=== PATIENT | male | born 1975 | race Caucasian/White ===

== ENCOUNTER 2018-08-11 21:22 | Inpatient (IN) ==
[2018-08-11] MEDS ORDERED: LORazepam 1 MG/2 ML VIAL IV STA ×2 (22:03→22:47)
[2018-08-11] MEDS ORDERED: SODIUM CHLORIDE 0.9% 1000ML 1,000 ML IV SCH (22:15)
[2018-08-11 22:50] LABS: Appearance Urine Slightly Cloudy (Clear); Color Urine Orange; Ictotest Urine Positive (Negative); Specific Gravity Urine 1.027 (1.000-1.030)
[2018-08-11 22:58] LABS: Epithelial Cell Urine >30 /lpf (0-5)
[2018-08-11 22:59] LABS: Bacteria Urine 1+ (Negative); Mucus Urine Present (None Prsent)
[2018-08-11 22:59] LABS: INR 2.8 (0.9-1.1); Partial Thromboplastin Ratio 2.1
[2018-08-11] MEDS ORDERED: MULTI-VITAMIN INFUSION 10 ML, THIAMINE HCL 100 MG, FOLIC ACID 1 MG in SODIUM CHLORIDE 0... IV SCH (23:00)
[2018-08-11 23:02] LABS: Albumin Level 2.5 gm/dl (3.4-5.0); BUN Creatinine Ratio 5.5 (10-20); Calcium 7.8 mg/dl (8.5-10.1); Creatinine Clr Calc Pharmacy 189.9 ml/min; Est GFR (African American) 138.3; Est GFR (Non-African American) 119.3; Magnesium 1.9 mg/dl (1.8-2.4); Potassium 4.2 mmol/L (3.5-5.1)
[2018-08-11 23:04] LABS: Partial Thromboplastin Time 58.1 Seconds (21.0-31.0)
[2018-08-11 23:07] LABS: Mean Corpuscular Hgb Conc 36.2 g/dL (32-36)
[2018-08-11 23:14] LABS: Albumin Globulin Ratio 0.5 (0.9-2); Bilirubin,Total 17.2 mg/dl (0.2-1); Globulin 4.8 gm/dl (2.5-4.0); Total Protein 7.3 gm/dl (6.4-8.2); Troponin I 0.022 ng/ml (0-0.045)
[2018-08-11 23:16] LABS: Bilirubin Direct 11.3 mg/dl (0-0.2)
[2018-08-11 23:18] LABS: Platelet Count 34 K/uL (130-400)
[2018-08-11 23:19] LABS: Basophils # (auto) 0.07 K/uL (0-0.2); Basophils % (auto) 0.8 %; Eosinophils # (auto) 0.07 K/uL (0-0.5); Eosinophils % (auto) 0.8 %; Hematocrit (blood only) 38.1 % (42-52); Hemoglobin 13.8 g/dL (14.0-18.0); Immature Granulocytes # (auto) 0.02 K/uL (0.00-0.02); Immature Granulocytes % (auto) 0.2 %; Lymphocytes # (auto) 0.77 K/uL (1.2-3.4); Lymphocytes % (auto) 8.4 %; Mean Corpuscular Volume 94.3 fL (80-100); Monocytes # (auto) 1.38 K/uL (0.11-0.59); Neutrophils # (auto) 6.91 K/uL (1.4-6.5); Neutrophils % (auto) 74.8 %; RDW Coefficient of Variation 16.8 % (11.5-14.5); RDW Standard Deviation 58.2 fL (36.4-46.3); Red Blood Count 4.04 M/uL (4.7-6.1); White Blood Count 9.22 K/uL (4.8-10.8)
[2018-08-11 23:20] LABS: Platelet Estimate Decreased (Normal); Target Cells 1+; Toxic Vacuolation 1+
[2018-08-11 23:22] LABS: Amphetamines+Metham, Urine Neg (Neg); Barbiturates, Urine Neg (Neg); Benzodiazepine, Urine Neg (Neg); Cocaine, Urine Neg (Neg); MDMA (Ecstacy), Urine Neg (Neg); Methadone, Urine Neg (Neg); Opiate, Urine Neg (Neg); Phencyclidine, Urine Neg (Neg)
[2018-08-11 23:28] LABS: T4 Free Thyroxine 1.65 ng/dl (0.8-1.6)
--- NOTE | 2018-08-12 00:27 | Emergency Department Note ---
History of Present Illness General Chief complaint: GI Assessment Stated complaint: JAUNDICE, NAUSEA, DIARRHEA, WEAKNESS Time Seen by Provider: 08/11/18 21:54 History of Present Illness This is a 42-year-old male that presents to the emergency department via private vehicle accompanied by female with complaints of "jaundice, nausea, diarrhea, weakness". The patient notes that since his grandmother about 2 months ago has been consuming 1/2-3/4 of a gallon of wine daily. His last drink was at 4:30 PM. The female at bedside notes that over the past week he has been more yellow/jaundice. They also note his urine has been very dark. He has not seized but does have tremors. He notes that these are worse when he does not drink. He currently notes that he feels quite bloated. He notes no vomiting. Intermittent diarrhea is noted. Home Medications Home Medications Medication Instructions Recorded Confirmed Type No Known Home Medications 08/11/18 08/11/18 History Allergies Allergy/AdvReac Type Severity Reaction Status Date / Time amoxicillin Allergy Severe Hives Verified 08/11/18 23:25 ibuprofen Allergy Intermediate Hives Verified 08/11/18 23:25 Past Med/Surg History Medical History No pertinent past medical history Surgical History No pertinent past surgical history Social History Preferred Language: Japanese Communication Ability Comment: CURRENTLY IMPAIRED D/T WITHDRAWAL Show Girl Required: No Beliefs That Will Affect Care: None Current Living Situation: Spouse Other Information That Helps Us Care for You: No Feels Safe at Home: Yes Safety Concerns: Feels Safe At This Time Smoking Status: Current every day smoker Hx Alcohol Use: Yes Review of Systems A total of 10 systems reviewed and were otherwise negative Physical Exam Vital Signs Vital Signs - 24 hr 08/11/18 21:29 08/11/18 22:29 08/11/18 23:18 Temperature 37.3 C Temperature Source Oral Sepsis Recent Fever Within 48 Hours No Sepsis Action Taken by Nursing No Action Required Pulse Rate 115 H Pulse Rate [Apical] 109 H 108 H Pulse Rhythm Regular Pulse Rhythm [Apical] Regular Pulse Strength Normal Pulse Strength [Apical] Normal Respiratory Rate 22 21 20 Respiratory Effort / Characteristics Non-Labored Spontaneous Non-Labored Spontaneous Respiratory Depth Normal Normal Respiratory Pattern Regular Blood Pressure 184/123 H Blood Pressure [Left Arm] 165/96 H 153/111 H Blood Pressure Mean 143 Blood Pressure Mean [Left Arm] 119 125 Blood Pressure Position Sitting Blood Pressure Position [Left Arm] Pulse Oximetry 97 96 98 Oxygen Delivery Method Room Air Room Air Room Air Oxygen Flow Rate 08/12/18 01:02 08/12/18 02:32 08/12/18 04:07 Temperature 37.3 C Temperature Source Oral Sepsis Recent Fever Within 48 Hours Sepsis Action Taken by Nursing Pulse Rate Pulse Rate [Apical] 109 H 112 H 104 H Pulse Rhythm Pulse Rhythm [Apical] Regular Regular Pulse Strength Pulse Strength [Apical] Normal Normal Normal Respiratory Rate 18 22 24 Respiratory Effort / Characteristics Non-Labored Spontaneous Non-Labored Spontaneous SOB on Exertion Respiratory Depth Normal Normal Normal Respiratory Pattern Blood Pressure Blood Pressure [Left Arm] 149/85 H 138/104 H 162/85 H Blood Pressure Mean Blood Pressure Mean [Left Arm] 106 115 110 Blood Pressure Position Blood Pressure Position [Left Arm] Lying Pulse Oximetry 96 94 96 Oxygen Delivery Method Room Air Nasal Cannula Room Air Oxygen Flow Rate 2 08/12/18 05:34 08/12/18 05:42 08/12/18 06:03 Temperature 37.4 C Temperature Source Oral Sepsis Recent Fever Within 48 Hours Sepsis Action Taken by Nursing Pulse Rate 102 H Pulse Rate [Apical] 96 H 106 H Pulse Rhythm Pulse Rhythm [Apical] Pulse Strength Pulse Strength [Apical] Respiratory Rate 22 18 20 Respiratory Effort / Characteristics Grunting Labored Non-Labored Spontaneous Respiratory Depth Deep Respiratory Pattern Grunting Blood Pressure 126/78 Blood Pressure [Left Arm] 128/82 Blood Pressure Mean 94 Blood Pressure Mean [Left Arm] 97 Blood Pressure Position Lying Blood Pressure Position [Left Arm] Lying Pulse Oximetry 94 94 95 Oxygen Delivery Method Nasal Cannula Nasal Cannula Oxygen Flow Rate 2 2 2 08/12/18 06:14 08/12/18 06:18 08/12/18 06:30 Temperature 37.3 C 37.4 C 37.3 C Temperature Source Oral Oral Oral Sepsis Recent Fever Within 48 Hours Sepsis Action Taken by Nursing Pulse Rate 99 H 102 H 107 H Pulse Rate [Apical] Pulse Rhythm Pulse Rhythm [Apical] Pulse Strength Pulse Strength [Apical] Respiratory Rate 21 21 21 Respiratory Effort / Characteristics Respiratory Depth Respiratory Pattern Blood Pressure 150/72 H 122/87 122/87 Blood Pressure [Left Arm] Blood Pressure Mean 98 98 98 Blood Pressure Mean [Left Arm] Blood Pressure Position Lying Lying Blood Pressure Position [Left Arm] Pulse Oximetry 94 94 95 Oxygen Delivery Method Oxygen Flow Rate 2 2 08/12/18 06:54 Temperature 37.3 C Temperature Source Axillary Sepsis Recent Fever Within 48 Hours Sepsis Action Taken by Nursing Pulse Rate Pulse Rate [Apical] 98 H Pulse Rhythm Pulse Rhythm [Apical] Pulse Strength Pulse Strength [Apical] Respiratory Rate 20 Respiratory Effort / Characteristics Respiratory Depth Respiratory Pattern Blood Pressure Blood Pressure [Left Arm] 122/87 Blood Pressure Mean Blood Pressure Mean [Left Arm] 98 Blood Pressure Position Blood Pressure Position [Left Arm] Pulse Oximetry 93 Oxygen Delivery Method Oxygen Flow Rate 2 VITAL SIGNS - Vital signs and nursing notes were reviewed. Stable and afebrile. GENERAL - 42-year-old male appearing his stated age who is in no acute distress but has a tremor, appears anxious and is jaundiced. Communicates well with provider and answers questions appropriately. SKIN -on the anterior proximal chest there is minimal petechial-like rash appearing. HEAD - NC/AT. EYES - PERRL with EOMI bilaterally. Sclera icteric. EARS - No deformities of external structures noted on gross examination bilaterally. NOSE - Midline and without cyanosis. No epistaxis or purulent drainage noted. MOUTH/OROPHARYNX - Without perioral cyanosis. NECK - Neck with FROM. Supple to palpation. No lymphadenopathy noted. No nuchal rigidity. LUNGS - Chest wall symmetric without accessory muscle use, intercostals retractions, or central cyanosis. Normal vesicular breath sounds CTA B/L. No wheezes, rales, or rhonchi appreciated. CARDIAC - RRR with S1/S2. No murmur, rubs, or gallops appreciated. ABDOMEN - Abdominal contour slightly distended without pulsations or visible masses. BS normoactive all four quadrants. No tenderness, palpable masses, or ascites noted. EXTREMITIES - No clubbing or peripheral cyanosis. No pretibial edema present. +5/5 strength noted in UE/LE bilaterally. NEUROLOGIC - Cranial nerves II through XII grossly intact. PSYCH - A&O, and cooperates fully with examiner. Pt is very pleasant and interacts well with examiner. Course Administered Medications Lorazepam (Ativan) 1 mg in 2 mls @ 2 mls/min IV UD PRN; Protocol PRN Reason: EtOH Withdrawl AWSS Score 6,7 Stop: 09/11/18 01:06 Last Admin: 08/12/18 02:11 Dose: 2 mls/min Documented by: [id number] Lorazepam (Ativan) 2 mg in 4 mls @ 4 mls/min IV UD PRN; Protocol PRN Reason: EtOH Withdrawl AWSS Score 8,9 Stop: 09/11/18 01:06 Last Admin: 08/12/18 03:53 Dose: 4 mls/min Documented by: [id number] Lorazepam (Ativan) 3 mg in 6 mls @ 4 mls/min IV ONCE PRN; Protocol PRN Reason: EtOH Withdrawl AWSS Score >=10 Stop: 09/11/18 01:06 Last Admin: 08/12/18 06:29 Dose: 4 mls/min Documented by: [id number] Pantoprazole Sodium 40 mg/ (Dextrose) 100 mls @ 20 mls/hr IV Q5H SANDRA Stop: 09/11/18 03:14 Last Admin: 08/12/18 03:44 Dose: 20 mls/hr Documented by: [id number] Sodium Chloride (Nss 1000ml) 1,000 mls @ 40 mls/hr IV .Q24H SANDRA Stop: 09/11/18 05:14 Last Infusion: 08/12/18 05:32 Dose: 0 mls/hr Documented by: [id number] Admin: 08/12/18 05:21 Dose: 40 mls/hr Documented by: [id number] Discontinued Medications Clonidine HCl (Catapres) 0.1 mg PO NOW STA Stop: 08/12/18 01:19 Last Admin: 08/12/18 01:33 Dose: 0.1 mg Documented by: [id number] Clonidine HCl (Catapres) 0.1 mg PO NOW ONE Stop: 08/12/18 05:03 Last Admin: 08/12/18 05:17 Dose: Not Given Documented by: [id number] Gabapentin (Neurontin) 1,200 mg PO TODAY@0130 SANDRA Stop: 08/12/18 01:31 Last Admin: 08/12/18 01:32 Dose: 1,200 mg Documented by: [id number] Lorazepam (Ativan) 1 mg in 2 mls @ 2 mls/min IV NOW STA Stop: 08/11/18 22:04 Last Admin: 08/11/18 22:27 Dose: 2 mls/min Documented by: [id number] Sodium Chloride (Nss 1000ml) 1,000 mls @ 999 mls/hr IV .Q1H1M SANDRA Stop: 08/11/18 23:15 Last Infusion: 08/11/18 23:43 Dose: 0 mls/hr Documented by: [id number] Admin: 08/11/18 22:27 Dose: 999 mls/hr Documented by: [id number] Lorazepam (Ativan) 1 mg in 2 mls @ 2 mls/min IV NOW STA Stop: 08/11/18 22:48 Last Admin: 08/11/18 23:15 Dose: 2 mls/min Documented by: [id number] Multivitamins 10 ml/ Thiamine HCl 100 mg/ Folic Acid 1 mg/Sodium Chloride 1, 011.2 mls @ 1,011.2 mls/hr IV .Q1H SANDRA Stop: 08/11/18 23:59 Last Infusion: 08/12/18 00:30 Dose: 0 mls/hr Documented by: [id number] Admin: 08/11/18 23:16 Dose: 1,011.2 mls/hr Documented by: [id number] Pantoprazole Sodium 80 mg/ (Dextrose) 120 mls @ 480 mls/hr IV TODAY@0300 [facility] Stop: 08/12/18 03:14 Last Infusion: 08/12/18 03:26 Dose: 0 mls/hr Documented by: [id number] Admin: 08/12/18 03:11 Dose: 480 mls/hr Documented by: [id number] Magnesium Sulfate/Dextrose (Magnesium Sulfate / D5w) 1 gm in 100 mls @ 100 mls/hr IV ONE ONE Stop: 08/12/18 05:03 Last Infusion: 08/12/18 05:33 Dose: 0 mls/hr Documented by: [id number] Admin: 08/12/18 04:33 Dose: 100 mls/hr Documented by: [id number] Ipratropium [place] (Atrovent 0.02% 0.5mg/2.5ml) 0.5 mg INH NOW STA Stop: 08/12/18 05:30 Last Admin: 08/12/18 05:42 Dose: 0.5 mg Documented by: [id number] Levalbuterol HCl (Xopenex 1.25mg/0.5ml Neb) 1.25 mg INH NOW STA Stop: 08/12/18 05:31 Last Admin: 08/12/18 05:42 Dose: 1.25 mg Documented by: [id number] Medical Decision Making Laboratory Data Result diagrams: 08/12/18 04:05 08/12/18 04:05 Lab Results 08/11/18 08/11/18 08/11/18 Range/Units 22:00 22:00 22:20 WBC 9.22 (4.8-10.8) K/uL RBC 4.04 L (4.7-6.1) M/uL Hgb 13.8 L (14.0-18.0) g/dL Hct 38.1 L (42-52) % MCV 94.3 (80-100) fL MCH 34.2 H (25-34) pg MCHC 36.2 H (32-36) g/dL RDW Std Deviation 58.2 H (36.4-46.3) fL RDW Coeff of Sarah 16.8 H (11.5-14.5) % Plt Count 34 L (130-400) K/uL Immature Gran % (Auto) 0.2 % Neut % (Auto) 74.8 % Lymph % (Auto) 8.4 % [place] % (Auto) 15.0 % Eos % (Auto) 0.8 % Baso % (Auto) 0.8 % Reticulocyte % (Auto) (0.5-2.0) % Immature Gran # (Auto) 0.02 (0.00-0.02) K/uL Neut # (Auto) 6.91 H (1.4-6.5) K/uL Lymph # (Auto) 0.77 L (1.2-3.4) K/uL [place] # (Auto) 1.38 H (0.11-0.59) K/uL Eos # (Auto) 0.07 (0-0.5) K/uL Baso # (Auto) 0.07 (0-0.2) K/uL Reticulocyte # (0.02-0.10) 10^6/uL Toxic Vacuolation 1+ Platelet Estimate Decreased (Normal) Target Cells 1+ PT (9.0-12.0) Seconds INR (0.9-1.1) APTT (21.0-31.0) Seconds PTT Ratio ABG pH (7.35-7.45) ABG pCO2 (35-46) mmHg ABG pO2 (80-95) mm/Hg ABG HCO3 (19-24) mmol/L ABG O2 Saturation (90-95) % ABG Base Excess (-9-1.8) mEq/L Jai Test (Pos) Barometric Pressure mm/Hg Oxygen Given Sodium (136-145) mmol/L Potassium (3.5-5.1) mmol/L Chloride (98-107) mmol/L Carbon Dioxide (21-32) mmol/L Anion Gap (3-11) BUN (7-18) mg/dl Creatinine (0.6-1.4) mg/dl Est Cr Clr Drug Dosing ml/min Est GFR ( Amer) Est GFR (Non-Af Amer) BUN/Creatinine Ratio (10-20) Glucose (70-99) mg/dl Osmolality (280-300) mOsm/kg Calcium (8.5-10.1) mg/dl Magnesium (1.8-2.4) mg/dl Iron (35-175) mcg/dl TIBC (250-450) mcg/dl Transferrin (200-360) mg/dl Ferritin (8-388) ng/ml Total Bilirubin (0.2-1) mg/dl Direct Bilirubin (0-0.2) mg/dl AST (15-37) U/L ALT (12-78) U/L Alkaline Phosphatase (45-117) U/L Ammonia Troponin I (0-0.045) ng/ml Total Protein (6.4-8.2) gm/dl Albumin (3.4-5.0) gm/dl Globulin (2.5-4.0) gm/dl Albumin/Globulin Ratio (0.9-2) Lipase (73-393) U/L TSH (0.300-4.500) uIu/ml Free T4 (0.8-1.6) ng/dl Total T3 (0.60-1.81) ng/ml Urine Color Urine Appearance (Clear) Urine pH (4.5-7.5) Ur Specific [place] (1.000-1.030) Urine Protein (Negative) Urine Glucose (UA) (Negative) Urine Ketones (Negative) Urine Blood (Negative) Urine Nitrite (Negative) Urine Bilirubin (Negative) Urine Urobilinogen (Negative) Ur Leukocyte Esterase (Negative) Urine RBC (0-4) /hpf Urine WBC (0-5) /hpf Ur Epithelial Cells (0-5) /lpf Urine Bacteria (Negative) Hyaline Casts (0-5) /lpf Granular Casts (0) /lpf Urine Mucus (None Prsent) Urine Osmolality 505 (500-800) mOsm/kg Ur Random Sodium < 5 mmol/L Salicylates Urine Opiates Screen (Neg) Ur Methadone, Qual (Neg) Acetaminophen Urine Barbiturates (Neg) Ur Phencyclidine (PCP) (Neg) U Amphetamin/Meth Scrn (Neg) MDMA (Ecstasy) Screen (Neg) U Benzodiazepines Scrn (Neg) Ur Cocaine Metabolite (Neg) U Marijuana (THC) Screen (Neg) Ethyl Alcohol mg/dL (0-3) mg/dl Blood Type Antibody Screen 08/11/18 08/11/18 08/11/18 Range/Units 22:20 22:20 22:20 WBC (4.8-10.8) K/uL RBC (4.7-6.1) M/uL Hgb (14.0-18.0) g/dL Hct (42-52) % MCV (80-100) fL MCH (25-34) pg MCHC (32-36) g/dL RDW Std Deviation (36.4-46.3) fL RDW Coeff of Sarah (11.5-14.5) % Plt Count (130-400) K/uL Immature Gran % (Auto) % Neut % (Auto) % Lymph % (Auto) % [place] % (Auto) % Eos % (Auto) % Baso % (Auto) % Reticulocyte % (Auto) (0.5-2.0) % Immature Gran # (Auto) (0.00-0.02) K/uL Neut # (Auto) (1.4-6.5) K/uL Lymph # (Auto) (1.2-3.4) K/uL [place] # (Auto) (0.11-0.59) K/uL Eos # (Auto) (0-0.5) K/uL Baso # (Auto) (0-0.2) K/uL Reticulocyte # (0.02-0.10) 10^6/uL Toxic Vacuolation Platelet Estimate (Normal) Target Cells PT (9.0-12.0) Seconds INR (0.9-1.1) APTT (21.0-31.0) Seconds PTT Ratio ABG pH (7.35-7.45) ABG pCO2 (35-46) mmHg ABG pO2 (80-95) mm/Hg ABG HCO3 (19-24) mmol/L ABG O2 Saturation (90-95) % ABG Base Excess (-9-1.8) mEq/L Jai Test (Pos) Barometric Pressure mm/Hg Oxygen Given Sodium 124 L (136-145) mmol/L Potassium 4.2 (3.5-5.1) mmol/L Chloride 88 L (98-107) mmol/L Carbon Dioxide 26 (21-32) mmol/L Anion Gap 10.0 (3-11) BUN 4 L (7-18) mg/dl Creatinine 0.67 (0.6-1.4) mg/dl Est Cr Clr Drug Dosing 189.9 ml/min Est GFR ( Amer) 138.3 Est GFR (Non-Af Amer) 119.3 BUN/Creatinine Ratio 5.5 L (10-20) Glucose 121 H (70-99) mg/dl Osmolality (280-300) mOsm/kg Calcium 7.8 L (8.5-10.1) mg/dl Magnesium 1.9 (1.8-2.4) mg/dl Iron (35-175) mcg/dl TIBC (250-450) mcg/dl Transferrin (200-360) mg/dl Ferritin (8-388) ng/ml Total Bilirubin 17.2 H (0.2-1) mg/dl Direct Bilirubin 11.3 H (0-0.2) mg/dl AST 284 H (15-37) U/L ALT 159 H (12-78) U/L Alkaline Phosphatase 195 H (45-117) U/L Ammonia Troponin I 0.022 (0-0.045) ng/ml Total Protein 7.3 (6.4-8.2) gm/dl Albumin 2.5 L (3.4-5.0) gm/dl Globulin 4.8 H (2.5-4.0) gm/dl Albumin/Globulin Ratio 0.5 L (0.9-2) Lipase 617 H (73-393) U/L TSH 9.500 H (0.300-4.500) uIu/ml Free T4 1.65 H (0.8-1.6) ng/dl Total T3 (0.60-1.81) ng/ml Urine Color Urine Appearance (Clear) Urine pH (4.5-7.5) Ur Specific [place] (1.000-1.030) Urine Protein (Negative) Urine Glucose (UA) (Negative) Urine Ketones (Negative) Urine Blood (Negative) Urine Nitrite (Negative) Urine Bilirubin (Negative) Urine Urobilinogen (Negative) Ur Leukocyte Esterase (Negative) Urine RBC (0-4) /hpf Urine WBC (0-5) /hpf Ur Epithelial Cells (0-5) /lpf Urine Bacteria (Negative) Hyaline Casts (0-5) /lpf Granular Casts (0) /lpf Urine Mucus (None Prsent) Urine Osmolality (500-800) mOsm/kg Ur Random Sodium mmol/L Salicylates Cancelled Urine Opiates Screen (Neg) Ur Methadone, Qual (Neg) Acetaminophen Cancelled Urine Barbiturates (Neg) Ur Phencyclidine (PCP) (Neg) U Amphetamin/Meth Scrn (Neg) MDMA (Ecstasy) Screen (Neg) U Benzodiazepines Scrn (Neg) Ur Cocaine Metabolite (Neg) U Marijuana (THC) Screen (Neg) Ethyl Alcohol mg/dL 49.9 H (0-3) mg/dl Blood Type Antibody Screen 08/11/18 08/11/18 08/11/18 Range/Units 22:20 22:20 22:20 WBC (4.8-10.8) K/uL RBC (4.7-6.1) M/uL Hgb (14.0-18.0) g/dL Hct (42-52) % MCV (80-100) fL MCH (25-34) pg MCHC (32-36) g/dL RDW Std Deviation (36.4-46.3) fL RDW Coeff of Sarah (11.5-14.5) % Plt Count (130-400) K/uL Immature Gran % (Auto) % Neut % (Auto) % Lymph % (Auto) % [place] % (Auto) % Eos % (Auto) % Baso % (Auto) % Reticulocyte % (Auto) (0.5-2.0) % Immature Gran # (Auto) (0.00-0.02) K/uL Neut # (Auto) (1.4-6.5) K/uL Lymph # (Auto) (1.2-3.4) K/uL [place] # (Auto) (0.11-0.59) K/uL Eos # (Auto) (0-0.5) K/uL Baso # (Auto) (0-0.2) K/uL Reticulocyte # (0.02-0.10) 10^6/uL Toxic Vacuolation Platelet Estimate (Normal) Target Cells PT 27.0 H (9.0-12.0) Seconds INR 2.8 H (0.9-1.1) APTT 58.1 H* (21.0-31.0) Seconds PTT Ratio 2.1 ABG pH (7.35-7.45) ABG pCO2 (35-46) mmHg ABG pO2 (80-95) mm/Hg ABG HCO3 (19-24) mmol/L ABG O2 Saturation (90-95) % ABG Base Excess (-9-1.8) mEq/L Jai Test (Pos) Barometric Pressure mm/Hg Oxygen Given Sodium (136-145) mmol/L Potassium (3.5-5.1) mmol/L Chloride (98-107) mmol/L Carbon Dioxide (21-32) mmol/L Anion Gap (3-11) BUN (7-18) mg/dl Creatinine (0.6-1.4) mg/dl Est Cr Clr Drug Dosing ml/min Est GFR ( Amer) Est GFR (Non-Af Amer) BUN/Creatinine Ratio (10-20) Glucose (70-99) mg/dl Osmolality 278 L (280-300) mOsm/kg Calcium (8.5-10.1) mg/dl Magnesium (1.8-2.4) mg/dl Iron (35-175) mcg/dl TIBC (250-450) mcg/dl Transferrin (200-360) mg/dl Ferritin (8-388) ng/ml Total Bilirubin (0.2-1) mg/dl Direct Bilirubin (0-0.2) mg/dl AST (15-37) U/L ALT (12-78) U/L Alkaline Phosphatase (45-117) U/L Ammonia Troponin I (0-0.045) ng/ml Total Protein (6.4-8.2) gm/dl Albumin (3.4-5.0) gm/dl Globulin (2.5-4.0) gm/dl Albumin/Globulin Ratio (0.9-2) Lipase (73-393) U/L TSH (0.300-4.500) uIu/ml Free T4 (0.8-1.6) ng/dl Total T3 0.66 (0.60-1.81) ng/ml Urine Color Urine Appearance (Clear) Urine pH (4.5-7.5) Ur Specific [place] (1.000-1.030) Urine Protein (Negative) Urine Glucose (UA) (Negative) Urine Ketones (Negative) Urine Blood (Negative) Urine Nitrite (Negative) Urine Bilirubin (Negative) Urine Urobilinogen (Negative) Ur Leukocyte Esterase (Negative) Urine RBC (0-4) /hpf Urine WBC (0-5) /hpf Ur Epithelial Cells (0-5) /lpf Urine Bacteria (Negative) Hyaline Casts (0-5) /lpf Granular Casts (0) /lpf Urine Mucus (None Prsent) Urine Osmolality (500-800) mOsm/kg Ur Random Sodium mmol/L Salicylates Urine Opiates Screen (Neg) Ur Methadone, Qual (Neg) Acetaminophen Urine Barbiturates (Neg) Ur Phencyclidine (PCP) (Neg) U Amphetamin/Meth Scrn (Neg) MDMA (Ecstasy) Screen (Neg) U Benzodiazepines Scrn (Neg) Ur Cocaine Metabolite (Neg) U Marijuana (THC) Screen (Neg) Ethyl Alcohol mg/dL (0-3) mg/dl Blood Type Antibody Screen 08/11/18 08/11/18 08/11/18 Range/Units 22:25 22:28 22:28 WBC (4.8-10.8) K/uL RBC (4.7-6.1) M/uL Hgb (14.0-18.0) g/dL Hct (42-52) % MCV (80-100) fL MCH (25-34) pg MCHC (32-36) g/dL RDW Std Deviation (36.4-46.3) fL RDW Coeff of Sarah (11.5-14.5) % Plt Count (130-400) K/uL Immature Gran % (Auto) % Neut % (Auto) % Lymph % (Auto) % [place] % (Auto) % Eos % (Auto) % Baso % (Auto) % Reticulocyte % (Auto) (0.5-2.0) % Immature Gran # (Auto) (0.00-0.02) K/uL Neut # (Auto) (1.4-6.5) K/uL Lymph # (Auto) (1.2-3.4) K/uL [place] # (Auto) (0.11-0.59) K/uL Eos # (Auto) (0-0.5) K/uL Baso # (Auto) (0-0.2) K/uL Reticulocyte # (0.02-0.10) 10^6/uL Toxic Vacuolation Platelet Estimate (Normal) Target Cells PT (9.0-12.0) Seconds INR (0.9-1.1) APTT (21.0-31.0) Seconds PTT Ratio ABG pH (7.35-7.45) ABG pCO2 (35-46) mmHg ABG pO2 (80-95) mm/Hg ABG HCO3 (19-24) mmol/L ABG O2 Saturation (90-95) % ABG Base Excess (-9-1.8) mEq/L Jai Test (Pos) Barometric Pressure mm/Hg Oxygen Given Sodium (136-145) mmol/L Potassium (3.5-5.1) mmol/L Chloride (98-107) mmol/L Carbon Dioxide (21-32) mmol/L Anion Gap (3-11) BUN (7-18) mg/dl Creatinine (0.6-1.4) mg/dl Est Cr Clr Drug Dosing ml/min Est GFR ( Amer) Est GFR (Non-Af Amer) BUN/Creatinine Ratio (10-20) Glucose (70-99) mg/dl Osmolality (280-300) mOsm/kg Calcium (8.5-10.1) mg/dl Magnesium (1.8-2.4) mg/dl Iron (35-175) mcg/dl TIBC (250-450) mcg/dl Transferrin (200-360) mg/dl Ferritin (8-388) ng/ml Total Bilirubin (0.2-1) mg/dl Direct Bilirubin (0-0.2) mg/dl AST (15-37) U/L ALT (12-78) U/L Alkaline Phosphatase (45-117) U/L Ammonia Cancelled Troponin I (0-0.045) ng/ml Total Protein (6.4-8.2) gm/dl Albumin (3.4-5.0) gm/dl Globulin (2.5-4.0) gm/dl Albumin/Globulin Ratio (0.9-2) Lipase (73-393) U/L TSH (0.300-4.500) uIu/ml Free T4 (0.8-1.6) ng/dl Total T3 (0.60-1.81) ng/ml Urine Color [place] Urine Appearance Slightly Cloudy H (Clear) Urine pH (4.5-7.5) Ur Specific [place] 1.027 (1.000-1.030) Urine Protein (Negative) Urine Glucose (UA) (Negative) Urine Ketones (Negative) Urine Blood (Negative) Urine Nitrite (Negative) Urine Bilirubin (Negative) Urine Urobilinogen (Negative) Ur Leukocyte Esterase (Negative) Urine RBC 10-30 H (0-4) /hpf Urine WBC 10-30 H (0-5) /hpf Ur Epithelial Cells >30 H (0-5) /lpf Urine Bacteria 1+ H (Negative) Hyaline Casts 10-30 H (0-5) /lpf Granular Casts 1-5 H (0) /lpf Urine Mucus Present H (None Prsent) Urine Osmolality (500-800) mOsm/kg Ur Random Sodium mmol/L Salicylates Urine Opiates Screen Neg (Neg) Ur Methadone, Qual Neg (Neg) Acetaminophen Urine Barbiturates Neg (Neg) Ur Phencyclidine (PCP) Neg (Neg) U Amphetamin/Meth Scrn Neg (Neg) MDMA (Ecstasy) Screen Neg (Neg) U Benzodiazepines Scrn Neg (Neg) Ur Cocaine Metabolite Neg (Neg) U Marijuana (THC) Screen Neg (Neg) Ethyl Alcohol mg/dL (0-3) mg/dl Blood Type Antibody Screen 08/11/18 08/12/18 08/12/18 Range/Units 23:16 04:05 04:05 WBC 6.93 (4.8-10.8) K/uL RBC 3.56 L (4.7-6.1) M/uL Hgb 12.2 L (14.0-18.0) g/dL Hct 33.4 L (42-52) % MCV 93.8 (80-100) fL MCH 34.3 H (25-34) pg MCHC 36.5 H (32-36) g/dL RDW Std Deviation 58.3 H (36.4-46.3) fL RDW Coeff of Sarah 17.0 H (11.5-14.5) % Plt Count 30 L (130-400) K/uL Immature Gran % (Auto) 0.1 % Neut % (Auto) 66.3 % Lymph % (Auto) 14.9 % [place] % (Auto) 16.5 % Eos % (Auto) 1.6 % Baso % (Auto) 0.6 % Reticulocyte % (Auto) 2.4 H (0.5-2.0) % Immature Gran # (Auto) 0.01 (0.00-0.02) K/uL Neut # (Auto) 4.60 (1.4-6.5) K/uL Lymph # (Auto) 1.03 L (1.2-3.4) K/uL [place] # (Auto) 1.14 H (0.11-0.59) K/uL Eos # (Auto) 0.11 (0-0.5) K/uL Baso # (Auto) 0.04 (0-0.2) K/uL Reticulocyte # 0.08 (0.02-0.10) 10^6/uL Toxic Vacuolation Platelet Estimate Decreased (Normal) Target Cells 1+ PT (9.0-12.0) Seconds INR (0.9-1.1) APTT (21.0-31.0) Seconds PTT Ratio ABG pH (7.35-7.45) ABG pCO2 (35-46) mmHg ABG pO2 (80-95) mm/Hg ABG HCO3 (19-24) mmol/L ABG O2 Saturation (90-95) % ABG Base Excess (-9-1.8) mEq/L Jai Test (Pos) Barometric Pressure mm/Hg Oxygen Given Sodium 124 L (136-145) mmol/L Potassium 4.1 (3.5-5.1) mmol/L Chloride 93 L (98-107) mmol/L Carbon Dioxide 26 (21-32) mmol/L Anion Gap 5.0 (3-11) BUN 4 L (7-18) mg/dl Creatinine 0.62 (0.6-1.4) mg/dl Est Cr Clr Drug Dosing 206.1 ml/min Est GFR ( Amer) 142.8 Est GFR (Non-Af Amer) 123.2 BUN/Creatinine Ratio 6.9 L (10-20) Glucose 102 H (70-99) mg/dl Osmolality (280-300) mOsm/kg Calcium 7.1 L (8.5-10.1) mg/dl Magnesium (1.8-2.4) mg/dl Iron 146 (35-175) mcg/dl TIBC 151 L (250-450) mcg/dl Transferrin 104 L (200-360) mg/dl Ferritin 1213.7 H (8-388) ng/ml Total Bilirubin 16.0 H (0.2-1) mg/dl Direct Bilirubin (0-0.2) mg/dl AST 230 H (15-37) U/L ALT 125 H (12-78) U/L Alkaline Phosphatase 156 H (45-117) U/L Ammonia < 10.0 L Troponin I (0-0.045) ng/ml Total Protein 6.2 L (6.4-8.2) gm/dl Albumin 2.1 L (3.4-5.0) gm/dl Globulin 4.1 H (2.5-4.0) gm/dl Albumin/Globulin Ratio 0.5 L (0.9-2) Lipase (73-393) U/L TSH (0.300-4.500) uIu/ml Free T4 (0.8-1.6) ng/dl Total T3 (0.60-1.81) ng/ml Urine Color Urine Appearance (Clear) Urine pH (4.5-7.5) Ur Specific [place] (1.000-1.030) Urine Protein (Negative) Urine Glucose (UA) (Negative) Urine Ketones (Negative) Urine Blood (Negative) Urine Nitrite (Negative) Urine Bilirubin (Negative) Urine Urobilinogen (Negative) Ur Leukocyte Esterase (Negative) Urine RBC (0-4) /hpf Urine WBC (0-5) /hpf Ur Epithelial Cells (0-5) /lpf Urine Bacteria (Negative) Hyaline Casts (0-5) /lpf Granular Casts (0) /lpf Urine Mucus (None Prsent) Urine Osmolality (500-800) mOsm/kg Ur Random Sodium mmol/L Salicylates Urine Opiates Screen (Neg) Ur Methadone, Qual (Neg) Acetaminophen Urine Barbiturates (Neg) Ur Phencyclidine (PCP) (Neg) U Amphetamin/Meth Scrn (Neg) MDMA (Ecstasy) Screen (Neg) U Benzodiazepines Scrn (Neg) Ur Cocaine Metabolite (Neg) U Marijuana (THC) Screen (Neg) Ethyl Alcohol mg/dL (0-3) mg/dl Blood Type Antibody Screen 08/12/18 08/12/18 Range/Units 04:05 05:49 WBC (4.8-10.8) K/uL RBC (4.7-6.1) M/uL Hgb (14.0-18.0) g/dL Hct (42-52) % MCV (80-100) fL MCH (25-34) pg MCHC (32-36) g/dL RDW Std Deviation (36.4-46.3) fL RDW Coeff of Sarah (11.5-14.5) % Plt Count (130-400) K/uL Immature Gran % (Auto) % Neut % (Auto) % Lymph % (Auto) % [place] % (Auto) % Eos % (Auto) % Baso % (Auto) % Reticulocyte % (Auto) (0.5-2.0) % Immature Gran # (Auto) (0.00-0.02) K/uL Neut # (Auto) (1.4-6.5) K/uL Lymph # (Auto) (1.2-3.4) K/uL [place] # (Auto) (0.11-0.59) K/uL Eos # (Auto) (0-0.5) K/uL Baso # (Auto) (0-0.2) K/uL Reticulocyte # (0.02-0.10) 10^6/uL Toxic Vacuolation Platelet Estimate (Normal) Target Cells PT (9.0-12.0) Seconds INR (0.9-1.1) APTT (21.0-31.0) Seconds PTT Ratio ABG pH 7.48 H (7.35-7.45) ABG pCO2 38 (35-46) mmHg ABG pO2 94 (80-95) mm/Hg ABG HCO3 27 H (19-24) mmol/L ABG O2 Saturation 97.4 H (90-95) % ABG Base Excess 3.4 H (-9-1.8) mEq/L Jai Test Pos (Pos) Barometric Pressure 733.4 mm/Hg Oxygen Given 2L Sodium (136-145) mmol/L Potassium (3.5-5.1) mmol/L Chloride (98-107) mmol/L Carbon Dioxide (21-32) mmol/L Anion Gap (3-11) BUN (7-18) mg/dl Creatinine (0.6-1.4) mg/dl Est Cr Clr Drug Dosing ml/min Est GFR ( Amer) Est GFR (Non-Af Amer) BUN/Creatinine Ratio (10-20) Glucose (70-99) mg/dl Osmolality (280-300) mOsm/kg Calcium (8.5-10.1) mg/dl Magnesium (1.8-2.4) mg/dl Iron (35-175) mcg/dl TIBC (250-450) mcg/dl Transferrin (200-360) mg/dl Ferritin (8-388) ng/ml Total Bilirubin (0.2-1) mg/dl Direct Bilirubin (0-0.2) mg/dl AST (15-37) U/L ALT (12-78) U/L Alkaline Phosphatase (45-117) U/L Ammonia Troponin I (0-0.045) ng/ml Total Protein (6.4-8.2) gm/dl Albumin (3.4-5.0) gm/dl Globulin (2.5-4.0) gm/dl Albumin/Globulin Ratio (0.9-2) Lipase (73-393) U/L TSH (0.300-4.500) uIu/ml Free T4 (0.8-1.6) ng/dl Total T3 (0.60-1.81) ng/ml Urine Color Urine Appearance (Clear) Urine pH (4.5-7.5) Ur Specific [place] (1.000-1.030) Urine Protein (Negative) Urine Glucose (UA) (Negative) Urine Ketones (Negative) Urine Blood (Negative) Urine Nitrite (Negative) Urine Bilirubin (Negative) Urine Urobilinogen (Negative) Ur Leukocyte Esterase (Negative) Urine RBC (0-4) /hpf Urine WBC (0-5) /hpf Ur Epithelial Cells (0-5) /lpf Urine Bacteria (Negative) Hyaline Casts (0-5) /lpf Granular Casts (0) /lpf Urine Mucus (None Prsent) Urine Osmolality (500-800) mOsm/kg Ur Random Sodium mmol/L Salicylates Urine Opiates Screen (Neg) Ur Methadone, Qual (Neg) Acetaminophen Urine Barbiturates (Neg) Ur Phencyclidine (PCP) (Neg) U Amphetamin/Meth Scrn (Neg) MDMA (Ecstasy) Screen (Neg) U Benzodiazepines Scrn (Neg) Ur Cocaine Metabolite (Neg) U Marijuana (THC) Screen (Neg) Ethyl Alcohol mg/dL (0-3) mg/dl Blood Type O Positive Antibody Screen NEGATIVE MDM Narrative Patient was seen and evaluated as above in room C02. Review was performed of nursing notes and vital signs. After obtaining a thorough history and physical examination the above work up was performed. He presents to us today with what appears to be alcohol withdrawal. He is jaundiced. He is tachycardic. IV access was established. Fluids and Ativan were ordered. CBC reveals no leukocytosis. There is anemia noted. There is evidence of elevated total bilirubin around 17 with transaminitis. Urinalysis reveals what appears to be contaminated sample. Urine drug screen negative. Alcohol level 49.9. Patient's meld score at this time is 33. I did discuss these findings with the attending physician and subsequently the on-call hospitalist, I spoke to Dr. Fern so. He asked that I talk to her GI team regarding the case. I spoke to Dr. Segura. He indicated that he could see the patient in the morning here. I believe this is reasonable. Patient will be admitted for further evaluation and management. Seizure precautions were initiated. Please refer to further documentation regarding his stay. I believe he is currently in alcohol withdrawal and possible liver failure. Case was discussed with the attending physician. In the evaluation and treatment of this patient the following differential diagnoses were entertained: Alcohol withdrawal, seizure, liver failure, ascites, among others. Impression & Plan Alcohol withdrawal, Jaundice, Hyperbilirubinemia Discharge Plan Visit Data *Final* Discharge Date/Time: 08/12/18 03:59 Chief Complaint: GI Assessment Stated Complaint: JAUNDICE, NAUSEA, DIARRHEA, WEAKNESS ED Provider: Sohan Roach ED Midlevel Provider: Milo Henry Discharge Problem: Alcohol withdrawal, Jaundice, Hyperbilirubinemia Patient Disposition: Admitted As Inpatient Condition: Good Discharge Instructions Interventions: ED Discharge Assessment Last Done: 08/12/18 03:15
[2018-08-12] MEDS ORDERED: GABAPENTIN 1200MG ALCOHOL WITHDRAWAL LOAD PO STA (01:07)
[2018-08-12] MEDS ORDERED: ATIVAN IV ALCOHOL WITHDRAWL IV SCH (01:15)
[2018-08-12] MEDS ORDERED: cloNIDine HCl 0.1 MG TAB PO STA (01:18)
[2018-08-12] MEDS ORDERED: GABAPENTIN 600 MG TAB PO SCH (01:30)
[2018-08-12] MEDS: LORazepam 1 MG/2 ML VIAL IV PRN (02:11)
--- NOTE | 2018-08-12 02:45 | History & Physical Report ---
Date of Service August 12, 2018 Assessment & Plan (1) Alcohol withdrawal: UGI B possible sources gastritis, PUD, esophageal varices Alcoholic cirrhosis Hyponatremia secondary to cirrhosis, alcohol intake Ongoing tobacco abuse Abnormal TFTs PCU DT precautions IV PPI Fresh frozen plasma for coagulopathy secondary to chronic liver disease GI consult RE UGI B, alcoholic cirrhosis Careful correction of sodium hyponatremia workup Nephrology consult RE hyponatremia Nicotine patch as needed Social service RE discharge planning Recheck TFTs DVT prophylaxis SCDs while INR less than 2 RE GI bleed Full code Patient's requesting updates from providers. Ms. Sonali Hendrickson, contact #[phone]. . History of Present Illness Chief Complaint: Tremors, jaundice Primary Care Provider: NO PCP History obtained from patient, family, and records. Medical history significant for ongoing tobacco, alcohol abuse. Patient's daily alcohol consumption worsened over the last 2 months with demise of his grand mother and dog. The last few days, patient's noticed patient to be jaundiced and increasingly tremulous. Patient without an appetite. Dark loose stools as per patient's . Minimal abdominal cramping with bowel movement as per patient. Nonbloody emesis. No history of alcohol withdrawal seizures although patient has never stopped dr inking in the past as per family. Medical History as above Surgical History : None Family History : Hypertension, diabetes, alcoholism Personal/Social history : One pack daily, daily alcohol intake, Carlos Allergies Allergy/AdvReac Type Severity Reaction Status Date / Time amoxicillin Allergy Severe Hives Verified 08/11/18 23:25 ibuprofen Allergy Intermediate Hives Verified 08/11/18 23:25 Home Medications Home Medications Medication Instructions Recorded Confirmed Type No Known Home Medications 08/11/18 08/11/18 History Past Med/Surg History Medical History No pertinent past medical history Surgical History No pertinent past surgical history Social History Preferred Language: Cypriot Communication Ability Comment: CURRENTLY IMPAIRED D/T WITHDRAWAL Flat Breakdown Processor Required: No Beliefs That Will Affect Care: None Current Living Situation: Spouse Other Information That Helps Us Care for You: No Feels Safe at Home: Yes Safety Concerns: Feels Safe At This Time Smoking Status: Current every day smoker Tobacco Type: cigarettes Tobacco Cessation Education Requested by Patient: No Hx Alcohol Use: Yes Alcohol type: wine Review of Systems Review of Systems: As per HPI, chronic smoker's cough, all 10 systems reviewed, all other ROS negative Physical Exam Vital Signs (Past 24 Hours): Last Vital Signs Temp 37.3 C 08/11/18 21:29 Pulse 112 H 08/12/18 02:32 Resp 22 08/12/18 02:32 BP 138/104 H 08/12/18 02:32 Pulse Ox 94 08/12/18 02:32 Physical Exam: GENERAL: uncomfortable, anxious, tremulous, obese, looks older than stated age, no respiratory distress SKIN: Jaundice, warm, spider angiomata HEENT: Partial alopecia, pale palpebral conjunctivae, icteric sclerae, no ptosis, dry buccal mucosa NECK : Supple, short, no tenderness CHEST : Occasional wheeze, no tenderness HEART : Tachycardic, no obvious murmurs ABDOMEN: Some distention, nontender Rectal: Intact sphincter, dark stool, heme positive EXTREMITIES : minimal LE swelling, no tenderness, no other conspicuous def ormities noted NEUROLOGIC : Episode of confusion, no facial asymmetry, tremulous Results & Data Laboratory Results Laboratory Results WBC 9.22 K/uL (4.8-10.8) 08/11/18 22:20 RBC 4.04 M/uL (4.7-6.1) L 08/11/18 22:20 Hgb 13.8 g/dL (14.0-18.0) L 08/11/18 22:20 Hct 38.1 % (42-52) L 08/11/18 22:20 MCV 94.3 fL (80-100) 08/11/18 22:20 MCH 34.2 pg (25-34) H 08/11/18 22:20 MCHC 36.2 g/dL (32-36) H 08/11/18 22:20 RDW Std Deviation 58.2 fL (36.4-46.3) H 08/11/18 22:20 RDW Coeff of Sarah 16.8 % (11.5-14.5) H 08/11/18 22:20 Plt Count 34 K/uL (130-400) L 08/11/18 22:20 Immature Gran % (Auto) 0.2 % 08/11/18 22:20 Neut % (Auto) 74.8 % 08/11/18 22:20 Lymph % (Auto) 8.4 % 08/11/18 22:20 [place] % (Auto) 15.0 % 08/11/18 22:20 Eos % (Auto) 0.8 % 08/11/18 22:20 Baso % (Auto) 0.8 % 08/11/18 22:20 Immature Gran # (Auto) 0.02 K/uL (0.00-0.02) 08/11/18 22:20 Neut # (Auto) 6.91 K/uL (1.4-6.5) H 08/11/18 22:20 Lymph # (Auto) 0.77 K/uL (1.2-3.4) L 08/11/18 22:20 [place] # (Auto) 1.38 K/uL (0.11-0.59) H 08/11/18 22:20 Eos # (Auto) 0.07 K/uL (0-0.5) 08/11/18 22:20 Baso # (Auto) 0.07 K/uL (0-0.2) 08/11/18 22:20 Toxic Vacuolation 1+ 08/11/18 22:20 Platelet Estimate Decreased (Normal) 08/11/18:20 Target Cells 1+ 08/11/18 22:20 PT 27.0 Seconds (9.0-12.0) H 08/11/18 22:20 INR 2.8 (0.9-1.1) H 08/11/18 22:20 APTT 58.1 Seconds (21.0-31.0) H* 08/11/18 22:20 PTT Ratio 2.1 08/11/18 22:20 Sodium 124 mmol/L (136-145) L 08/11/18 22:20 Potassium 4.2 mmol/L (3.5-5.1) 08/11/18 22:20 Chloride 88 mmol/L (98-107) L 08/11/18 22:20 Carbon Dioxide 26 mmol/L (21-32) 08/11/18 22:20 Anion Gap 10.0 (3-11) 08/11/18 22:20 BUN 4 mg/dl (7-18) L 08/11/18 22:20 Creatinine 0.67 mg/dl (0.6-1.4) 08/11/18 22:20 Est Cr Clr Drug Dosing 189.9 ml/min 08/11/18 22:20 Est GFR ( Amer) 138.3 08/11/18 22:20 Est GFR (Non-Af Amer) 119.3 08/11/18 22:20 BUN/Creatinine Ratio 5.5 (10-20) L 08/11/18 22:20 Glucose 121 mg/dl (70-99) H 08/11/18 22:20 Osmolality 278 mOsm/kg (280-300) L 08/11/18 22:20 Calcium 7.8 mg/dl (8.5-10.1) L 08/11/18 22:20 Magnesium 1.9 mg/dl (1.8-2.4) 08/11/18 22:20 Total Bilirubin 17.2 mg/dl (0.2-1) H 08/11/18 22:20 Direct Bilirubin 11.3 mg/dl (0-0.2) H 08/11/18 22:20 AST 284 U/L (15-37) H 08/11/18 22:20 ALT 159 U/L (12-78) H 08/11/18 22:20 Alkaline Phosphatase 195 U/L (45-117) H 08/11/18 22:20 Ammonia < 10.0 umol/L (11-32) L 08/11/18 23:16 Troponin I 0.022 ng/ml (0-0.045) 08/11/18 22:20 Total Protein 7.3 gm/dl (6.4-8.2) 08/11/18 22:20 Albumin 2.5 gm/dl (3.4-5.0) L 08/11/18 22:20 Globulin 4.8 gm/dl (2.5-4.0) H 08/11/18 22:20 Albumin/Globulin Ratio 0.5 (0.9-2) L 08/11/18 22:20 Lipase 617 U/L (73-393) H 08/11/18 22:20 TSH 9.500 uIu/ml (0.300-4.500) H 08/11/18 22:20 Free T4 1.65 ng/dl (0.8-1.6) H 08/11/18 22:20 Total T3 0.66 ng/ml (0.60-1.81) 08/11/18 22:20 Urine Color [place] 08/11/18 22:28 Urine Appearance Slightly Cloudy (Clear) H 08/11/18 22:28 Urine pH (4.5-7.5) 08/11/18 22:28 Ur Specific [place] 1.027 (1.000-1.030) 08/11/18 22:28 Urine Protein (Negative) 08/11/18 22: Urine Glucose (UA) (Negative) 08/11/18 22: Urine Ketones (Negative) 08/11/18: Urine Blood (Negative) 08/11/18: Urine Nitrite (Negative) 08/11/18: Urine Bilirubin (Negative) 08/11/18:28 Urine Urobilinogen (Negative) 08/11/18:28 Ur Leukocyte Esterase (Negative) 08/11/18: Urine RBC 10-30 /hpf (0-4) H 08/11/18 22:28 Urine WBC 10-30 /hpf (0-5) H 08/11/18 22:28 Ur Epithelial Cells >30 /lpf (0-5) H 08/11/18:28 Urine Bacteria 1+ (Negative) H 08/11/18 22:28 Hyaline Casts 10-30 /lpf (0-5) H 08/11/18 22:28 Granular Casts 1-5 /lpf (0) H 08/11/18 22:28 Urine Mucus Present (None Prsent) H 08/11/18 22:28 Urine Osmolality 505 mOsm/kg (500-800) 08/11/18 22:00 Ur Random Sodium < 5 mmol/L 08/11/18 22:00 Salicylates Cancelled 08/11/18 22:20 Urine Opiates Screen Neg (Neg) 08/11/18 22:28 Ur Methadone, Qual Neg (Neg) 08/11/18 22:28 Acetaminophen Cancelled 08/11/18 22:20 Urine Barbiturates Neg (Neg) 08/11/18 22:28 Ur Phencyclidine (PCP) Neg (Neg) 04/16/19 22:28 U Amphetamin/Meth Scrn Neg (Neg) 08/11/18 22:28 MDMA (Ecstasy) Screen Neg (Neg) 08/11/18 22:28 U Benzodiazepines Scrn Neg (Neg) 08/11/18 22:28 Ur Cocaine Metabolite Neg (Neg) 08/11/18 22:28 U Marijuana (THC) Screen Neg (Neg) 08/11/18 22:28 Ethyl Alcohol mg/dL 49.9 mg/dl (0-3) H 08/11/18 22:20 Diagnostic Findings Chest x-ray as per my interpretation no congestion
[2018-08-12] MEDS ORDERED: PANTOprazole 80 MG in DEXTROSE 5% 100 ML IV SCH (03:00)
[2018-08-12] MEDS ORDERED: ACETAMINOPHEN 325 MG TAB PO PRN (03:43)
[2018-08-12] MEDS ORDERED: XOPENEX/ATROVENT 1.25mg/0.5MG NEB COMBO NEB PRN (03:43)
[2018-08-12] MEDS ORDERED: PROCHLORPERAZINE 5 MG in SYRINGE 4 ML IV PRN (03:43)
[2018-08-12] MEDS ORDERED: MoRPHine SULFATE 4 MG/ML 1 ML CARP\\VIAL IV PRN (03:43)
[2018-08-12] MEDS ORDERED: OXYCODONE HCL IR 5 MG TAB (IMMEDIATE RELEASE) PO PRN (03:43)
[2018-08-12] MEDS ORDERED: IPRATROPIUM BROMIDE NEB SOLN 0.02% 2.5 ML VIAL INH PRN (03:43)
[2018-08-12] MEDS ORDERED: LEVALBUTEROL 1.25MG/0.5ML NEB INH PRN (03:43)
[2018-08-12] MEDS ORDERED: SODIUM CHLORIDE 0.9% 250 ML IV PRN ×2 (03:43→05:05)
[2018-08-12] MEDS: PANTOprazole 40 MG in DEXTROSE 5% 100 ML IV SCH ×5 (03:44→23:22)
[2018-08-12] MEDS: LORazepam 2 MG/4 ML VIAL IV PRN ×4 (03:53→23:33)
[2018-08-12] MEDS ORDERED: MAGNESIUM SULFATE / D5W 1 GM/100 ML BAG IV ONE (04:04)
[2018-08-12 04:25] LABS: Hematocrit (blood only) 33.4 % (42-52); Hemoglobin 12.2 g/dL (14.0-18.0); Mean Corpuscular Hgb Conc 36.5 g/dL (32-36); Mean Corpuscular Volume 93.8 fL (80-100); RDW Standard Deviation 58.3 fL (36.4-46.3); Red Blood Count 3.56 M/uL (4.7-6.1); White Blood Count 6.93 K/uL (4.8-10.8)
[2018-08-12 04:48] LABS: Albumin Globulin Ratio 0.5 (0.9-2); Albumin Level 2.1 gm/dl (3.4-5.0); BUN Creatinine Ratio 6.9 (10-20); Calcium 7.1 mg/dl (8.5-10.1); Creatinine Clr Calc Pharmacy 206.1 ml/min; Est GFR (African American) 142.8; Est GFR (Non-African American) 123.2; Ferritin 1213.7 ng/ml (8-388); Globulin 4.1 gm/dl (2.5-4.0); Potassium 4.1 mmol/L (3.5-5.1); Total Protein 6.2 gm/dl (6.4-8.2)
[2018-08-12] MEDS ORDERED: cloNIDine HCl 0.1 MG TAB PO ONE (05:02)
[2018-08-12] MEDS ORDERED: SODIUM CHLORIDE 0.9% 1000ML 1,000 ML IV SCH (05:15)
[2018-08-12 05:17] LABS: Platelet Count 30 K/uL (130-400)
[2018-08-12] MEDS ORDERED: XOPENEX/ATROVENT 1.25mg/0.5MG NEB COMBO NEB STA (05:27)
[2018-08-12] MEDS ORDERED: IPRATROPIUM BROMIDE NEB SOLN 0.02% 2.5 ML VIAL INH STA (05:29)
[2018-08-12] MEDS ORDERED: LEVALBUTEROL 1.25MG/0.5ML NEB INH STA (05:30)
[2018-08-12 06:04] LABS: HCO3 ABG 27 mmol/L (19-24); Oxygen Saturation ABG 97.4 % (90-95); PCO2 ABG 38 mmHg (35-46); PO2 ABG 94 mm/Hg (80-95); pH ABG 7.48 (7.35-7.45)
[2018-08-12 06:05] LABS: Allen Test Pos (Pos)
[2018-08-12] MEDS: LORazepam 3 MG/6 ML VIAL IV PRN (06:29)
--- NOTE | 2018-08-12 06:31 | XRay Report ---
XR chest 1V portable CLINICAL HISTORY: vomiting COMPARISON STUDY: No previous studies for comparison. FINDINGS: The cardiac and mediastinal contours are normal. There is no evidence of focal pulmonary co nsolidation. There is no evidence of failure. No pleural effusions are visualized.[ No free intraperi toneal air is visualized. A rounded density at the right lung base likely represents a nipple shadow. IMPRESSION: No active disease in the chest. Electronically signed by: Chris Conklin M.D. 08/12/2018 6:30 AM
--- NOTE | 2018-08-12 06:34 | XRay Report ---
XR chest 1V portable CLINICAL HISTORY: Hypoxia COMPARISON STUDY: 08/12/2018 FINDINGS: The heart is the upper limits of normal in size. There is mild central vascular prominence without evidence of overt failure. There is no focal pulmonary consolidation. There are no pleural ef fusions. There is no pneumothorax.[ IMPRESSION: No active disease in the chest. Electronically signed by: Chris Conklin M.D. 08/12/2018 6:33 AM
[2018-08-12 06:40] LABS: Basophils # (auto) 0.04 K/uL (0-0.2); Basophils % (auto) 0.6 %; Eosinophils # (auto) 0.11 K/uL (0-0.5); Eosinophils % (auto) 1.6 %; Immature Granulocytes # (auto) 0.01 K/uL (0.00-0.02); Immature Granulocytes % (auto) 0.1 %; Lymphocytes # (auto) 1.03 K/uL (1.2-3.4); Lymphocytes % (auto) 14.9 %; Monocytes # (auto) 1.14 K/uL (0.11-0.59); Monocytes % (auto) 16.5 %; Neutrophils % (auto) 66.3 %; Platelet Estimate Decreased (Normal); Reticulocyte % 2.4 % (0.5-2.0); Reticulocytes # 0.08 10^6/uL (0.02-0.10); Target Cells 1+
--- NOTE | 2018-08-12 06:50 | Nephrology Consultation ---
Date of Consultation August 12, 2018 Assessment & Plan (1) Hyponatremia: Hypervolemic hypotonic hyponatremia -presenting sodium 124 on 08/11 2300; slow increase to 129 late this afternoon over about 16 hours -he has had a L of NS as well as a L banana bag -pt w/ hypervolemia and liver cirrhosis; also with near normal serum osmolality (but osmolar gap of 22-d/t EtOH), abnormal thyroid function tests, EtOH level of 50 -complex patient w/ multiple etiologies driving low sodium (vol OL from liver cirrhosis, dehydration, abnormal thryoid function testing); would not yet give lasix; would limit po fluids when taking them to 1.5L; agree w/ 50 mL/hr rate of IVF -maintain eukalemia -he had IV contrast and is at risk for LAZARUS; monitor as above -goal sNa for tomorrow am is 132 >> would repeat one more bmp this evening > if sNa 130 or more would stop his iv fluids Present on Admission?: Yes History of Present Illness Reason for Consultation: hyponatremia Requesting Physician: Dr Dooley Attending Physician: Bekah Pereira MD History of Present Illness 42 y/o M whom I'm asked to see for hyponatremia after he was admitted overnight w/ concern for upper GI bleed in the setting of acute alcoholic hepatitis. PMH includes increased EtOH use recently and daily EtOH (reportedly a gallon of wine daily for past 3 mos and longstanding prior hx of heavy use), active tobacco abuse. He had just received some ativan when I evaluated him this am> he was stuporous and unable to participate in ros. Hx obtained from chart. His brought pt in w/ a few days of jaundice, tremors, loose dark stools, crampy abdominal pain, dark uop, several days of poor po intake. his presenting sodium was 124; EtOH level at that time was 50. he had a banana bag in ER and a L of NS > sodium came up to 124 this am. Serum osms were 278 on presentation (280 is normal low) and w/ Shaq 5 and urine osms 505. TSH and free T4 also mildly elevated. GI following and pt getting steroids for acute alcoholic hepatitis. Allergies Allergy/AdvReac Type Severity Reaction Status Date / Time amoxicillin Allergy Severe Hives Verified 08/11/18 23:25 ibuprofen Allergy Intermediate Hives Verified 08/11/18 23:25 Home Medications Home Medications Medication Instructions Recorded Confirmed Type No Known Home Medications 08/11/18 08/11/18 History Patient History Medical History No pertinent past medical history Surgical History No pertinent past surgical history Social History Preferred Language: Kosovan Communication Ability Comment: CURRENTLY IMPAIRED D/T WITHDRAWAL Pastoral Worker Required: No Beliefs That Will Affect Care: None Current Living Situation: Spouse Other Information That Helps Us Care for You: No Feels Safe at Home: Yes Safety Concerns: Feels Safe At This Time Smoking Status: Current every day smoker Tobacco Type: cigarettes Tobacco Cessation Education Requested by Patient: No Hx Alcohol Use: Yes Alcohol type: wine Physical Exam Vital Signs (Past 24 Hours): Last Vital Signs Temp 37.3 C 08/12/18 06:30 Pulse 107 H 08/12/18 06:30 Resp 21 08/12/18 06:30 BP 122/87 08/12/18 06:30 Pulse Ox 95 08/12/18 06:30 Constitutional: well developed, well nourished, + disheveled, + malnourished and + edematous pt obtunded/ stuporous on 02nc, withdraws to painful stimuli Eyes: + scleral abnormality (icterus) ENMT: Ears: no external ear abnormality Nose: no external nose abnormality Mouth: + dry oral mucous membranes Neck: no nuchal rigidity Respiratory: normal respiratory effort Auscultation: + diminished lung sounds Cardiovascular: Rate/Rhythm: regular rhythm and + tachycardic Extremities: + edema (2-3+ pedal to hips BL) Gastrointestinal (Abdomen): Inspection/Auscultation: + abdomen distended, normal bowel sounds and + abdominal edema Percussion/Palpation: abdomen soft; abdomen nontender Skin: no rashes, warm and dry + turgor decreased and + skin tightening Neurologic: obtunded, withdraws to unpleasant stimuli; hill Results & Data Laboratory Results Abnormal lab results 08/11/18 08/11/18 08/11/18 Range/Units 22:20 22:20 22:20 RBC 4.04 L (4.7-6.1) M/uL Hgb 13.8 L (14.0-18.0) g/dL Hct 38.1 L (42-52) % MCH 34.2 H (25-34) pg MCHC 36.2 H (32-36) g/dL RDW Std Deviation 58.2 H (36.4-46.3) fL RDW Coeff of Sarah 16.8 H (11.5-14.5) % Plt Count 34 L (130-400) K/uL Reticulocyte % (Auto) (0.5-2.0) % Neut # (Auto) 6.91 H (1.4-6.5) K/uL Lymph # (Auto) 0.77 L (1.2-3.4) K/uL [place] # (Auto) 1.38 H (0.11-0.59) K/uL PT (9.0-12.0) Seconds INR (0.9-1.1) APTT (21.0-31.0) Seconds ABG pH (7.35-7.45) ABG HCO3 (19-24) mmol/L ABG O2 Saturation (90-95) % ABG Base Excess (-9-1.8) mEq/L Sodium 124 L (136-145) mmol/L Chloride 88 L (98-107) mmol/L Anion Gap (3-11) BUN 4 L (7-18) mg/dl BUN/Creatinine Ratio 5.5 L (10-20) Glucose 121 H (70-99) mg/dl Osmolality (280-300) mOsm/kg Calcium 7.8 L (8.5-10.1) mg/dl TIBC (250-450) mcg/dl Transferrin (200-360) mg/dl Ferritin (8-388) ng/ml Total Bilirubin 17.2 H (0.2-1) mg/dl Direct Bilirubin 11.3 H (0-0.2) mg/dl AST 284 H (15-37) U/L ALT 159 H (12-78) U/L Alkaline Phosphatase 195 H (45-117) U/L Ammonia (11-32) umol/L Total Protein (6.4-8.2) gm/dl Albumin 2.5 L (3.4-5.0) gm/dl Globulin 4.8 H (2.5-4.0) gm/dl Albumin/Globulin Ratio 0.5 L (0.9-2) Lipase 617 H (73-393) U/L Vitamin B12 (211-911) pg/ml TSH 9.500 H (0.300-4.500) uIu/ml Free T4 1.65 H (0.8-1.6) ng/dl Urine Appearance (Clear) Urine RBC (0-4) /hpf Urine WBC (0-5) /hpf Ur Epithelial Cells (0-5) /lpf Urine Bacteria (Negative) Hyaline Casts (0-5) /lpf Granular Casts (0) /lpf Urine Mucus (None Prsent) Ethyl Alcohol mg/dL 49.9 H (0-3) mg/dl 08/11/18 08/11/18 08/11/18 Range/Units 22:20 22:20 22:28 RBC (4.7-6.1) M/uL Hgb (14.0-18.0) g/dL Hct (42-52) % MCH (25-34) pg MCHC (32-36) g/dL RDW Std Deviation (36.4-46.3) fL RDW Coeff of Sarah (11.5-14.5) % Plt Count (130-400) K/uL Reticulocyte % (Auto) (0.5-2.0) % Neut # (Auto) (1.4-6.5) K/uL Lymph # (Auto) (1.2-3.4) K/uL [place] # (Auto) (0.11-0.59) K/uL PT 27.0 H (9.0-12.0) Seconds INR 2.8 H (0.9-1.1) APTT 58.1 H* (21.0-31.0) Seconds ABG pH (7.35-7.45) ABG HCO3 (19-24) mmol/L ABG O2 Saturation (90-95) % ABG Base Excess (-9-1.8) mEq/L Sodium (136-145) mmol/L Chloride (98-107) mmol/L Anion Gap (3-11) BUN (7-18) mg/dl BUN/Creatinine Ratio (10-20) Glucose (70-99) mg/dl Osmolality 278 L (280-300) mOsm/kg Calcium (8.5-10.1) mg/dl TIBC (250-450) mcg/dl Transferrin (200-360) mg/dl Ferritin (8-388) ng/ml Total Bilirubin (0.2-1) mg/dl Direct Bilirubin (0-0.2) mg/dl AST (15-37) U/L ALT (12-78) U/L Alkaline Phosphatase (45-117) U/L Ammonia (11-32) umol/L Total Protein (6.4-8.2) gm/dl Albumin (3.4-5.0) gm/dl Globulin (2.5-4.0) gm/dl Albumin/Globulin Ratio (0.9-2) Lipase (73-393) U/L Vitamin B12 (211-911) pg/ml TSH (0.300-4.500) uIu/ml Free T4 (0.8-1.6) ng/dl Urine Appearance Slightly Cloudy H (Clear) Urine RBC 10-30 H (0-4) /hpf Urine WBC 10-30 H (0-5) /hpf Ur Epithelial Cells >30 H (0-5) /lpf Urine Bacteria 1+ H (Negative) Hyaline Casts 10-30 H (0-5) /lpf Granular Casts 1-5 H (0) /lpf Urine Mucus Present H (None Prsent) Ethyl Alcohol mg/dL (0-3) mg/dl 08/11/18 08/12/18 08/12/18 Range/Units 23:16 04:05 04:05 RBC 3.56 L (4.7-6.1) M/uL Hgb 12.2 L (14.0-18.0) g/dL Hct 33.4 L (42-52) % MCH 34.3 H (25-34) pg MCHC 36.5 H (32-36) g/dL RDW Std Deviation 58.3 H (36.4-46.3) fL RDW Coeff of Sarah 17.0 H (11.5-14.5) % Plt Count 30 L (130-400) K/uL Reticulocyte % (Auto) 2.4 H (0.5-2.0) % Neut # (Auto) (1.4-6.5) K/uL Lymph # (Auto) 1.03 L (1.2-3.4) K/uL [place] # (Auto) 1.14 H (0.11-0.59) K/uL PT (9.0-12.0) Seconds INR (0.9-1.1) APTT (21.0-31.0) Seconds ABG pH (7.35-7.45) ABG HCO3 (19-24) mmol/L ABG O2 Saturation (90-95) % ABG Base Excess (-9-1.8) mEq/L Sodium 124 L (136-145) mmol/L Chloride 93 L (98-107) mmol/L Anion Gap (3-11) BUN 4 L (7-18) mg/dl BUN/Creatinine Ratio 6.9 L (10-20) Glucose 102 H (70-99) mg/dl Osmolality (280-300) mOsm/kg Calcium 7.1 L (8.5-10.1) mg/dl TIBC 151 L (250-450) mcg/dl Transferrin 104 L (200-360) mg/dl Ferritin 1213.7 H (8-388) ng/ml Total Bilirubin 16.0 H (0.2-1) mg/dl Direct Bilirubin (0-0.2) mg/dl AST 230 H (15-37) U/L ALT 125 H (12-78) U/L Alkaline Phosphatase 156 H (45-117) U/L Ammonia < 10.0 L (11-32) umol/L Total Protein 6.2 L (6.4-8.2) gm/dl Albumin 2.1 L (3.4-5.0) gm/dl Globulin 4.1 H (2.5-4.0) gm/dl Albumin/Globulin Ratio 0.5 L (0.9-2) Lipase (73-393) U/L Vitamin B12 (211-911) pg/ml TSH (0.300-4.500) uIu/ml Free T4 (0.8-1.6) ng/dl Urine Appearance (Clear) Urine RBC (0-4) /hpf Urine WBC (0-5) /hpf Ur Epithelial Cells (0-5) /lpf Urine Bacteria (Negative) Hyaline Casts (0-5) /lpf Granular Casts (0) /lpf Urine Mucus (None Prsent) Ethyl Alcohol mg/dL (0-3) mg/dl 08/12/18 08/12/18 08/12/18 Range/Units 04:05 05:49 09:54 RBC (4.7-6.1) M/uL Hgb 11.4 L (14.0-18.0) g/dL Hct 32.5 L (42-52) % MCH (25-34) pg MCHC (32-36) g/dL RDW Std Deviation (36.4-46.3) fL RDW Coeff of Sarah (11.5-14.5) % Plt Count (130-400) K/uL Reticulocyte % (Auto) (0.5-2.0) % Neut # (Auto) (1.4-6.5) K/uL Lymph # (Auto) (1.2-3.4) K/uL [place] # (Auto) (0.11-0.59) K/uL PT (9.0-12.0) Seconds INR (0.9-1.1) APTT (21.0-31.0) Seconds ABG pH 7.48 H (7.35-7.45) ABG HCO3 27 H (19-24) mmol/L ABG O2 Saturation 97.4 H (90-95) % ABG Base Excess 3.4 H (-9-1.8) mEq/L Sodium (136-145) mmol/L Chloride (98-107) mmol/L Anion Gap (3-11) BUN (7-18) mg/dl BUN/Creatinine Ratio (10-20) Glucose (70-99) mg/dl Osmolality (280-300) mOsm/kg Calcium (8.5-10.1) mg/dl TIBC (250-450) mcg/dl Transferrin (200-360) mg/dl Ferritin (8-388) ng/ml Total Bilirubin (0.2-1) mg/dl Direct Bilirubin (0-0.2) mg/dl AST (15-37) U/L ALT (12-78) U/L Alkaline Phosphatase (45-117) U/L Ammonia (11-32) umol/L Total Protein (6.4-8.2) gm/dl Albumin (3.4-5.0) gm/dl Globulin (2.5-4.0) gm/dl Albumin/Globulin Ratio (0.9-2) Lipase (73-393) U/L Vitamin B12 > 2000 H (211-911) pg/ml TSH (0.300-4.500) uIu/ml Free T4 (0.8-1.6) ng/dl Urine Appearance (Clear) Urine RBC (0-4) /hpf Urine WBC (0-5) /hpf Ur Epithelial Cells (0-5) /lpf Urine Bacteria (Negative) Hyaline Casts (0-5) /lpf Granular Casts (0) /lpf Urine Mucus (None Prsent) Ethyl Alcohol mg/dL (0-3) mg/dl 08/12/18 08/12/18 08/12/18 Range/Units 09:54 09:54 16:29 RBC (4.7-6.1) M/uL Hgb 12.2 L (14.0-18.0) g/dL Hct 34.4 L (42-52) % MCH (25-34) pg MCHC (32-36) g/dL RDW Std Deviation (36.4-46.3) fL RDW Coeff of Sarah (11.5-14.5) % Plt Count (130-400) K/uL Reticulocyte % (Auto) (0.5-2.0) % Neut # (Auto) (1.4-6.5) K/uL Lymph # (Auto) (1.2-3.4) K/uL [place] # (Auto) (0.11-0.59) K/uL PT 22.8 H (9.0-12.0) Seconds INR 2.4 H (0.9-1.1) APTT (21.0-31.0) Seconds ABG pH (7.35-7.45) ABG HCO3 (19-24) mmol/L ABG O2 Saturation (90-95) % ABG Base Excess (-9-1.8) mEq/L Sodium 127 L (136-145) mmol/L Chloride 93 L (98-107) mmol/L Anion Gap 2.0 L (3-11) BUN 6 L (7-18) mg/dl BUN/Creatinine Ratio 8.5 L (10-20) Glucose (70-99) mg/dl Osmolality (280-300) mOsm/kg Calcium 7.6 L (8.5-10.1) mg/dl TIBC (250-450) mcg/dl Transferrin (200-360) mg/dl Ferritin (8-388) ng/ml Total Bilirubin (0.2-1) mg/dl Direct Bilirubin (0-0.2) mg/dl AST (15-37) U/L ALT (12-78) U/L Alkaline Phosphatase (45-117) U/L Ammonia (11-32) umol/L Total Protein (6.4-8.2) gm/dl Albumin (3.4-5.0) gm/dl Globulin (2.5-4.0) gm/dl Albumin/Globulin Ratio (0.9-2) Lipase (73-393) U/L Vitamin B12 (211-911) pg/ml TSH (0.300-4.500) uIu/ml Free T4 (0.8-1.6) ng/dl Urine Appearance (Clear) Urine RBC (0-4) /hpf Urine WBC (0-5) /hpf Ur Epithelial Cells (0-5) /lpf Urine Bacteria (Negative) Hyaline Casts (0-5) /lpf Granular Casts (0) /lpf Urine Mucus (None Prsent) Ethyl Alcohol mg/dL (0-3) mg/dl 08/12/18 08/12/18 Range/Units 16:29 16:29 RBC (4.7-6.1) M/uL Hgb (14.0-18.0) g/dL Hct (42-52) % MCH (25-34) pg MCHC (32-36) g/dL RDW Std Deviation (36.4-46.3) fL RDW Coeff of Sarah (11.5-14.5) % Plt Count (130-400) K/uL Reticulocyte % (Auto) (0.5-2.0) % Neut # (Auto) (1.4-6.5) K/uL Lymph # (Auto) (1.2-3.4) K/uL [place] # (Auto) (0.11-0.59) K/uL PT 24.1 H (9.0-12.0) Seconds INR 2.5 H (0.9-1.1) APTT (21.0-31.0) Seconds ABG pH (7.35-7.45) ABG HCO3 (19-24) mmol/L ABG O2 Saturation (90-95) % ABG Base Excess (-9-1.8) mEq/L Sodium 129 L (136-145) mmol/L Chloride 96 L (98-107) mmol/L Anion Gap (3-11) BUN 6 L (7-18) mg/dl BUN/Creatinine Ratio 9.0 L (10-20) Glucose (70-99) mg/dl Osmolality (280-300) mOsm/kg Calcium 8.0 L (8.5-10.1) mg/dl TIBC (250-450) mcg/dl Transferrin (200-360) mg/dl Ferritin (8-388) ng/ml Total Bilirubin 18.3 H (0.2-1) mg/dl Direct Bilirubin 11.9 H (0-0.2) mg/dl AST 213 H (15-37) U/L ALT 118 H (12-78) U/L Alkaline Phosphatase 152 H (45-117) U/L Ammonia (11-32) umol/L Total Protein (6.4-8.2) gm/dl Albumin 2.3 L (3.4-5.0) gm/dl Globulin (2.5-4.0) gm/dl Albumin/Globulin Ratio (0.9-2) Lipase (73-393) U/L Vitamin B12 (211-911) pg/ml TSH (0.300-4.500) uIu/ml Free T4 (0.8-1.6) ng/dl Urine Appearance (Clear) Urine RBC (0-4) /hpf Urine WBC (0-5) /hpf Ur Epithelial Cells (0-5) /lpf Urine Bacteria (Negative) Hyaline Casts (0-5) /lpf Granular Casts (0) /lpf Urine Mucus (None Prsent) Ethyl Alcohol mg/dL (0-3) mg/dl Diagnostic Findings CT abd/pelvis w/ iv con 1. Distended and thick-walled gallbladder with trace pericholecystic fluid. This is nonspecific could be due to the patient's underlying cirrhosis. However, acute cholecystitis could also have a similar appearance. Clinical correlation recommended. 2. Cirrhotic liver. There are 2 hypodense lesions within the liver which are incompletely care chest on this study. 3. Small amount of ascites and trace bilateral pleural effusions. 4. Colonic wall thickening is likely due to the patient's cirrhosis. 5. Multiple abdominal varicosities are noted in most pronounced within the right retroperitoneal space. abd u/s 1. Cirrhosis with recanalized paraumbilical vein indicative of portal hypertension. Trace ascites. Hepatic lesions on CT from earlier today not visualized on this exam due to suboptimal penetration. 2. Moderate gallbladder distention with mild gallbladder wall thickening and trace pericholecystic fluid. The findings are nonspecific in the setting of cirrhosis and a nuclear medicine hepatobiliary scan could be obtained if suspicion for acute cholecystitis. Small amount of sludge within the gallbladder. No gallstones. cxr > no acute cp process
[2018-08-12 08:16] LABS: Folate (Folic Acid) > 24.00 ng/ml (>5.38); Vitamin B12 > 2000 pg/ml (211-911)
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
--- NOTE | 2018-08-12 09:25 | Hospitalist Progress Note ---
Date of Service August 12, 2018 Assessment & Plan (1) Alcohol withdrawal: UGI B possible sources gastritis, PUD, esophageal varices Alcoholic cirrhosis Hyponatremia secondary to cirrhosis, alcohol intake Ongoing tobacco abuse Abnormal TFTs PCU DT precautions IV PPI Fresh frozen plasma for coagulopathy secondary to chronic liver disease GI consult RE UGI B, alcoholic cirrhosis Careful correction of sodium hyponatremia workup Nephrology consult RE hyponatremia Nicotine patch as needed Social service RE discharge planning Recheck TFTs DVT prophylaxis SCDs while INR less than 2 RE GI bleed Full code Patient's requesting updates from providers. Ms. Sonali Hendrickson, contact #[phone]. . (2) Acute alcoholic hepatitis: History of excessive alcohol drinking for long time, has been drinking 1/2-3/4 gallon of whiskey for last few months cough, after losing his grandmother Presented with jaundice, Had coffee-ground emesis in ER Also had multiple episodes of diarrhea with dark stool Alcohol level less than 40 Significantly elevated AST ALT with coagulopathy Concern for possible alcoholic cirrhosis, patient has marked thrombocytopenia Patient started with alcohol withdrawal protocol, GI consulted, Follow serial LFTs, Ordered for hepatitis panel Present on Admission?: Yes (3) Coagulopathy: Secondary to advanced liver disease/alcoholic liver disease Patient is not on any anticoagulation, Auto anticoagulated secondary to liver failure, INR 2.8 Presented with GI bleed, coffee-ground emesis, dark stool, stool heme positive in the ER Given FFP Follow INR closely Avoid all form of anticoagulation GI consulted Overall prognosis remains very poor Present on Admission?: Yes (4) Hyperbilirubinemia: Secondary to alcoholic liver disease, presented with jaundice, Total bilirubin 16 GI consulted, Follow management Present on Admission?: Yes (5) Jaundice: As outlined above Present on Admission?: Yes (6) Upper GI bleed: Had episodes of coffee-ground emesis in the ER, multiple episodes of diarrhea, with dark stool, stool heme positive Presents with advanced alcoholic liver disease, with acute alcoholic hepatitis With coagulopathy, thrombocytopenia Also need to rule out variceal bleed-will need possible EGD when patient is medically stable, coagulopathy corrected, GI consulted Has not seen any physicians for the last 20 years, Denies of taking any Motrin or Aleve or any NSAIDs Patient is ordered for FFP, platelets H&H to be monitored every 6 hours Transfuse for active bleeding, or acute hemorrhagic/blood loss anemia Is continue with IV PPI drip Present on Admission?: Yes (7) Thrombocytopenia: Secondary to advanced liver disease, possible alcoholic liver cirrhosis Platelet count 30 with active GI bleed Ordered platelet transfusion Follow CBC closely Avoid antiplatelets/anticoagulation CT abdomen pelvis with IV contrast to assess for liver cirrhosis/splenomegaly Present on Admission?: Yes (8) Alcohol abuse: History of long-term alcohol abuse months after in family Patient has been drinking heavily gallons of whiskey (9) Tobacco abuse: smokes 1-2 pks cig a day ordered for nicotine patch (10) Hyponatremia: due to chronic alchoholic liver disease nephrology consulted will follow PRP FULL CODE DVT PROPHYLAXIS : scd and teds avoid anticoagulation due to thromobocytopenia /coagulopahty DISPOSITION : to be determined will need Alcohol rehab updated at bed side pt needs to establish care with a family physician Subjective Patient seen in room 211, remains confused, Opens eyes to voice, tells me that he knows in the hospital could not tell me the name of hospital, drops back to sleep and multiple family members present at bedside Physical Exam Vital Signs (Past 24 Hours): Last Vital Signs Temp 38 C H 08/12/18 09:00 Pulse 104 H 08/12/18 09:00 Resp 18 08/12/18 09:00 BP 151/84 H 08/12/18 09:00 Pulse Ox 93 08/12/18 08:29 Physical Exam: GENERAL: Chronically ill-appearing, jaundiced, confused, oriented to person only, HEENT: Injected conjunctiva, deep icteric sclera, thick secretion on upper and lower eyelid, with crust noted Dry oral mucosa, dried blood noted on both lips neck: No JVD, no thyromegaly, trachea midline Lungs: Diminished, no audible wheeze noted Cardiovascular: Regular S1 and S2, Plus 1/2 bilateral lower extremity edema Abdomen: Distended, bowel sounds diminished, soft, Extremities: +1 bilat lower ext edema Neuro: No focal neurological deficit noted, moving all limbs Psych: Disoriented, confused (1) Alcohol withdrawal Complication of substance-induced condition: with delirium Qualified Code(s): F10.231 - Alcohol dependence with withdrawal delirium
[2018-08-12] MEDS ORDERED: CIPROFLOXACIN HCL 0.3% OP SOLN 2.5 ML BTL OP STA (09:53)
[2018-08-12 10:07] LABS: Hematocrit (blood only) 32.5 % (42-52); Hemoglobin 11.4 g/dL (14.0-18.0)
[2018-08-12 10:17] LABS: INR 2.4 (0.9-1.1); Prothrombin Time 22.8 Seconds (9.0-12.0)
[2018-08-12 10:29] LABS: BUN Creatinine Ratio 8.5 (10-20); Calcium 7.6 mg/dl (8.5-10.1); Creatinine Clr Calc Pharmacy 193.6 ml/min; Est GFR (African American) 139.2; Est GFR (Non-African American) 120.1
[2018-08-12 10:53] LABS: Hepatitis B Surface Antigen Neg (Neg)
[2018-08-12 11:29] LABS: Hepatitis C IgG 13Yrs+Old_Rflx Neg (Neg)
[2018-08-12] MEDS ORDERED: IOVERSOL 100ml IV PRN (11:31)
--- NOTE | 2018-08-12 11:56 | CT Scan Report ---
ABDOMEN AND PELVIS CT WITH IV CONTRAST CT DOSE: 1883.80 mGy.cm HISTORY: alcoholic liver disease TECHNIQUE: Multiaxial CT images of the abdomen and pelvis were performed following the use of intrave nous contrast. A dose lowering technique was utilized adhering to the principles of ALARA. COMPARISON STUDY: None. FINDINGS: Bibasilar densities favor subsegmental atelectasis. There are trace bilateral pleural effus ions. No pneumoperitoneum. No pneumatosis. No suspicious lytic or blastic osseous lesions. Nodular co ntour to the liver consistent with cirrhosis. A 2.1 cm hypodense lesion within the right hepatic lobe and a 1.4 cm hypodense lesion within the left hepatic lobe. These are incompletely characterized on this single contrast study. The adrenal glands, pancreas, and kidneys are unremarkable. Multiple vari cosities seen throughout the upper abdomen most pronounced within the right retroperitoneal location. There are also small periumbilical varicosities. The gallbladder is distended and demonstrates mild wall thickening. There is also trace pericholecystic fluid. The main portal vein is patent. No retrop eritoneal lymphadenopathy. Small amount ascites. Normal bladder. Mild diffuse thickening of the colon . This is nonspecific but likely due to the patient's edematous state. This is most pronounced within the ascending colon and hepatic flexure of the colon. There are few colonic diverticula. No evidence for diverticulitis. Normal appendix. No bowel obstruction. IMPRESSION: 1. Distended and thick-walled gallbladder with trace pericholecystic fluid. This is nonspecific could be due to the patient's underlying cirrhosis. However, acute cholecystitis could also have a similar appearance. Clinical correlation recommended. 2. Cirrhotic liver. There are 2 hypodense lesions within the liver which are incompletely care chest on this study. 3. Small amount of ascites and trace bilateral pleural effusions. 4. Colonic wall thickening is likely due to the patient's cirrhosis. 5. Multiple abdominal varicosities are noted in most pronounced within the right retroperitoneal spac e. Electronically signed by: Mehran Genao M.D. 08/12/2018 11:55 AM
--- NOTE | 2018-08-12 12:28 | Ultrasound Report ---
US liver CLINICAL HISTORY: Alcoholic liver disease. COMPARISON STUDY: CT of the abdomen and pelvis performed earlier today. FINDINGS: The liver is mildly enlarged. Increased hepatic echogenicity is noted. There is nodularity of the liver surface indicative of cirrhosis. The hepatic lesions shown on CT of August 12, 2018 are n ot evident on this exam due to suboptimal penetration. Caliber of the common bile duct is at the uppe r limits of normal. The gallbladder is moderately distended. There is mild gallbladder wall thickenin g with a small amount of pericholecystic fluid. No gallstones are identified. No sonographic Rubio s ign was reported. Recanalized periumbilical vein is noted. The pancreas is obscured. There is no righ t hydronephrosis. IMPRESSION: 1. Cirrhosis with recanalized paraumbilical vein indicative of portal hypertension. Trace ascites. He patic lesions on CT from earlier today not visualized on this exam due to suboptimal penetration. 2. Moderate gallbladder distention with mild gallbladder wall thickening and trace pericholecystic fl uid. The findings are nonspecific in the setting of cirrhosis and a nuclear medicine hepatobiliary sc an could be obtained if suspicion for acute cholecystitis. Small amount of sludge within the gallblad sheridan. No gallstones. Electronically signed by: Giacomo Raya M.D. 08/12/2018 12:27 PM
[2018-08-12] MEDS: GABAPENTIN 600 MG TAB PO SCH ×3 (12:48→21:22)
[2018-08-12] MEDS: THIAMINE HCL 100 MG TAB PO SCH ×2 (12:49)
[2018-08-12] MEDS: MULTIVITAMIN TAB PO SCH (12:49)
[2018-08-12] MEDS: FOLIC ACID 1 MG TAB PO SCH (12:49)
[2018-08-12] MEDS ORDERED: CIPROFLOXACIN 400 MG/200 ML BAG IV SCH (13:00)
[2018-08-12] MEDS ORDERED: metroNIDAZOLE 500 MG/100 ML BAG IV SCH (13:00)
--- NOTE | 2018-08-12 13:44 | Surgery Consultation ---
Date of Consultation August 12, 2018 Assessment & Plan (1) Acute alcoholic hepatitis: 42-year-old male with significant alcoholic hepatitis, liver cirrhosis. ED notes, provider notes, labwork and recent imaging all reviewed. Reviewed patient's information with Dr. Souza. GI consultation reviewed. Low likelihood of acute cholecystitis. Gallbladder distention and gb wall thickening likely secondary to cirrhosis. Primary service to manage alcohol withdrawal/seizure precautions, electrolyte replacement, malnutrition Pt poor surgical candidate. No indication for surgical intervention at this time. Please call General Surgery with any questions or concerns. (2) Alcohol withdrawal: Alcohol withdrawal/seizure precautions per primary service. History of Present Illness Reason for Consultation: Acute Cholecystitis? Attending Physician: Bekah Pereira MD History of Present Illness Mr. Perez is a 42-year-old male who presented to [facility] ED for evaluation of jaundice, nausea, diarrhea, weakness. Patient's history obtained from ED records as well as patient's because patient is currently on alcohol withdrawal protocol and is sedated. Patient's states that patient has a long history of anxiety and alcohol use, but within the last 3 months really increased his daily alcohol intake to about 1 gallon of wine daily due to the loss of his maternal grandmother and his dog had to be put to sleep. Per patient's - patient would wake shaking in the morning until he consumed more alcohol. Both his anxiety and depression has become much worse. Per patient's , patient has not been seen by a medical provider for more than 10 years. When asked, patient's states that her has never complained of abdominal pain. She denies that he ever complained of post-prandial abdominal pain. Patient's does state that patient was not eating for several days before coming to ED. When patient is awake, patient's states that he is confused and is unaware that he is in the hospital. Admission labs- Tot Bili 17.2; Dir Bili 11.3; AST 284; ALT 159; Alk Phos 195 INR 2.8 Hgb 13.8; Hct 38.1; Plt 34 AM Labs (08/12/2018) Tot Bili 16.0; AST 230; ALT 125; Alk Phos 156 Albumin 2.1 WBC 6.93 Hgb 12.2; Hct 32.5; Plt 30 Imaging (08/12/2018) CT scan of abdomen/pelvis w IV contrast: 1. Distended and thick-walled gallbladder with trace pericholecystic fluid. This is nonspecific could be due to the patient's underlying cirrhosis. However, acute cholecystitis could also have a similar appearance. Clinical correlation recommended. 2. Cirrhotic liver. There are 2 hypodense lesions within the liver which are incompletely care chest on this study. 3. Small amount of ascites and trace bilateral pleural effusions. 4. Colonic wall thickening is likely due to the patient's cirrhosis. 5. Multiple abdominal varicosities are noted in most pronounced within the right retroperitoneal space. Liver Ultrasound 1. Cirrhosis with recanalized paraumbilical vein indicative of portal hypertension. Trace ascites. Hepatic lesions on CT from earlier today not visualized on this exam due to suboptimal penetration. 2. Moderate gallbladder distention with mild gallbladder wall thickening and trace pericholecystic fluid. The findings are nonspecific in the setting of cirrhosis and a nuclear medicine hepatobiliary scan could be obtained if suspicion for acute cholecystitis. Small amount of sludge within the gallbladder. No gallstones. Allergies Allergy/AdvReac Type Severity Reaction Status Date / Time amoxicillin Allergy Severe Hives Verified 08/11/18 23:25 ibuprofen Allergy Intermediate Hives Verified 08/11/18 23:25 Home Medications Home Medications Medication Instructions Recorded Confirmed Type No Known Home Medications 08/11/18 08/11/18 History Patient History Medical History No pertinent past medical history Surgical History No pertinent past surgical history Social History Preferred Language: Lithuanian Communication Ability Comment: CURRENTLY IMPAIRED D/T WITHDRAWAL Packing Inspector Required: No Beliefs That Will Affect Care: None Current Living Situation: Spouse Other Information That Helps Us Care for You: No Feels Safe at Home: Yes Safety Concerns: Feels Safe At This Time Smoking Status: Current every day smoker Tobacco Type: cigarettes Tobacco Cessation Education Requested by Patient: No Hx Alcohol Use: Yes Alcohol type: wine Physical Exam Constitutional: + obese Gastrointestinal (Abdomen): Inspection/Auscultation: + abdomen distended Patient does not wake with deep abdominal palpation. Results & Data Vital Signs (Past 12 Hours) Vital Signs Temp Pulse Pulse Resp BP BP Pulse Ox 08/12/18 12:00 36.7 C 89 17 142/89 H 3 L 08/12/18 09:00 38 C H 104 H 18 151/84 H 08/12/18 08:29 38 C H 97 H 16 157/84 H 93 08/12/18 08:00 99 H 08/12/18 07:55 38 C H 101 H 16 114/78 92 08/12/18 07:41 37.5 C 109 H 22 132/83 95 08/12/18 06:54 37.3 C 98 H 20 122/87 93 08/12/18 06:30 37.3 C 107 H 21 122/87 95 08/12/18 06:18 37.4 C 102 H 21 122/87 94 08/12/18 06:14 37.3 C 99 H 21 150/72 H 94 08/12/18 06:03 37.4 C 102 H 20 126/78 95 08/12/18 05:42 106 H 18 94 08/12/18 05:34 96 H 22 128/82 94 08/12/18 04:07 37.3 C 104 H 24 162/85 H 96 08/12/18 02:32 112 H 22 138/104 H 94 (1) Alcohol withdrawal Complication of substance-induced condition: with delirium Qualified Code(s): F10.231 - Alcohol dependence with withdrawal delirium
[2018-08-12] MEDS ORDERED: methylPREDNISolone 20 MG in SYRINGE 0 ML IV ONE ×2 (15:30→23:50)
[2018-08-12] MEDS ORDERED: AcetylCYSTEINE 15,000 MG in DEXTROSE 5% 200 ML IV ONE (16:30)
[2018-08-12 16:47] LABS: Hematocrit (blood only) 34.4 % (42-52); Hemoglobin 12.2 g/dL (14.0-18.0)
[2018-08-12 17:04] LABS: INR 2.5 (0.9-1.1); Prothrombin Time 24.1 Seconds (9.0-12.0)
[2018-08-12] MEDS ORDERED: MULTI-VITAMIN INFUSION 10 ML, THIAMINE HCL 100 MG, FOLIC ACID 1 MG in SODIUM CHLORIDE 0... IV SCH (17:15)
[2018-08-12 17:18] LABS: Albumin Level 2.3 gm/dl (3.4-5.0); Bilirubin,Total 18.3 mg/dl (0.2-1); Est GFR (African American) 135.1; Est GFR (Non-African American) 116.5; Potassium 4.1 mmol/L (3.5-5.1); Total Protein 6.5 gm/dl (6.4-8.2)
[2018-08-12] MEDS ORDERED: AcetylCYSTEINE 5,000 MG in DEXTROSE 5% 500 ML IV SCH (17:30)
[2018-08-12 17:55] LABS: Bilirubin Direct 11.9 mg/dl (0-0.2)
[2018-08-12] MEDS: prednisoLONE SYRUP 15 MG/5 ML BTL PO SCH (18:10)
[2018-08-12] MEDS: METHYLPREDNISOLONE IV SCH (20:39)
[2018-08-12] MEDS ORDERED: AcetylCYSTEINE 10,000 MG in DEXTROSE 5% 1,000 ML IV SCH (21:30)
[2018-08-13] MEDS: METHYLPREDNISOLONE IV SCH ×2 (03:02→08:32)
[2018-08-13] MEDS: LORazepam 3 MG/6 ML VIAL IV PRN (03:17)
[2018-08-13] MEDS: PANTOprazole 40 MG in DEXTROSE 5% 100 ML IV SCH ×2 (04:27→09:29)
[2018-08-13] MEDS: GABAPENTIN 600 MG TAB PO SCH ×2 (06:22→14:05)
[2018-08-13 06:51] LABS: Hemoglobin 11.8 g/dL (14.0-18.0); Mean Corpuscular Hgb Conc 34.7 g/dL (32-36); Mean Corpuscular Volume 98.3 fL (80-100); RDW Coefficient of Variation 17.3 % (11.5-14.5); RDW Standard Deviation 61.8 fL (36.4-46.3); Red Blood Count 3.46 M/uL (4.7-6.1); White Blood Count 5.27 K/uL (4.8-10.8)
[2018-08-13 06:56] LABS: INR 2.8 (0.9-1.1); Prothrombin Time 26.9 Seconds (9.0-12.0)
[2018-08-13 07:02] LABS: Mean Platelet Volume 11.5 fL (7.4-10.4); Platelet Count 44 K/uL (130-400)
--- NOTE | 2018-08-13 07:09 | Nephrology Progress Note ---
Date of Service August 13, 2018 Assessment & Plan (1) Hyponatremia: Hypervolemic hypotonic hyponatremia -presenting sodium 124 on 08/11 2300; slow increase to 131 this AM w/ appropriate rate of correction -he has had 4.5 L fluids in (NPO); w/ 2.5 L out -pt w/ hypervolemia and liver cirrhosis; also with near normal serum osmolality (but osmolar gap of 22-d/t EtOH), abnormal thyroid function tests, EtOH level of 50 -complex patient w/ multiple etiologies driving low sodium (vol OL from liver cirrhosis, but also w/ dehydration, abnormal thryoid function testing); would not yet give lasix; would not limit po fluids if only on liquid diet; when taking po, limit po fluids to 1.5-1.8L daily -ivf as indicated -maintain eukalemia -he had IV contrast and is at risk for LAZARUS; monitor as above >>>reasonable to check labs daily at this point -goal sNa for tomorrow am is wnl Will sign off; pls call of ? Subjective seen on rounds this am at 0720; at bedside; pt more alert> c/o "ass pain" from sitting in bed; wants to get up and walk he states; no sob, no n/v, not noticing/bothered by edema, denies RUQ pain; + hunger Review of Systems Review of Systems: All systems reviewed & are unremarkable except as noted in HPI & below Physical Exam Constitutional: well developed, well nourished, + disheveled, + malnourished and + edematous (but less today) on ra, more alert/interactive/appropriate Eyes: + scleral abnormality (icterus) ENMT: Ears: no external ear abnormality Nose: no external nose abnormality Mouth: + dry oral mucous membranes Neck: no nuchal rigidity Respiratory: normal respiratory effort Auscultation: + diminished lung s ounds Cardiovascular: Rate/Rhythm: regular rhythm and + tachycardic Extremities: + edema (2+ pedal;' trace hips BL) Gastrointestinal (Abdomen): Inspection/Auscultation: + abdomen distended and normal bowel sounds Percussion/Palpation: abdomen soft and + ascites; abdomen nontender Skin: no rashes, warm and dry + turgor decreased and + jaundice Neurologic: tremor +, hill, limited but mostly appropriate speech Results & Data Vital Signs (Past 12 Hours) Vital Signs Temp Pulse Pulse Resp BP Pulse Ox 08/13/18 03:03 36.9 C 102 H 24 144/92 H 91 08/13/18 00:35 36.9 C 106 H 24 144/94 H 93 08/12/18 19:55 36.6 C 102 H 23 137/97 92 Laboratory Results Abnormal lab results 08/12/18 08/12/18 08/12/18 Range/Units 16:29 16:29 16:29 RBC (4.7-6.1) M/uL Hgb 12.2 L (14.0-18.0) g/dL Hct 34.4 L (42-52) % MCH (25-34) pg RDW Std Deviation (36.4-46.3) fL RDW Coeff of Sarah (11.5-14.5) % Plt Count (130-400) K/uL MPV (7.4-10.4) fL PT 24.1 H (9.0-12.0) Seconds INR 2.5 H (0.9-1.1) Sodium 129 L (136-145) mmol/L Chloride 96 L (98-107) mmol/L BUN 6 L (7-18) mg/dl BUN/Creatinine Ratio 9.0 L (10-20) Glucose (70-99) mg/dl Calcium 8.0 L (8.5-10.1) mg/dl Total Bilirubin 18.3 H (0.2-1) mg/dl Direct Bilirubin 11.9 H (0-0.2) mg/dl AST 213 H (15-37) U/L ALT 118 H (12-78) U/L Alkaline Phosphatase 152 H (45-117) U/L Total Protein (6.4-8.2) gm/dl Albumin 2.3 L (3.4-5.0) gm/dl Albumin/Globulin Ratio (0.9-2) TSH (0.300-4.500) uIu/ml 08/13/18 08/13/18 08/13/18 Range/Units 06:14 06:14 06:14 RBC 3.46 L (4.7-6.1) M/uL Hgb 11.8 L (14.0-18.0) g/dL Hct 34.0 L (42-52) % MCH 34.1 H (25-34) pg RDW Std Deviation 61.8 H (36.4-46.3) fL RDW Coeff of Sarah 17.3 H (11.5-14.5) % Plt Count 44 L (130-400) K/uL MPV 11.5 H (7.4-10.4) fL PT 26.9 H (9.0-12.0) Seconds INR 2.8 H (0.9-1.1) Sodium 131 L (136-145) mmol/L Chloride (98-107) mmol/L BUN (7-18) mg/dl BUN/Creatinine Ratio 9.9 L (10-20) Glucose 178 H (70-99) mg/dl Calcium 7.5 L (8.5-10.1) mg/dl Total Bilirubin 18.5 H (0.2-1) mg/dl Direct Bilirubin 12.3 H (0-0.2) mg/dl AST 158 H (15-37) U/L ALT 97 H (12-78) U/L Alkaline Phosphatase 131 H (45-117) U/L Total Protein 6.0 L (6.4-8.2) gm/dl Albumin 2.0 L (3.4-5.0) gm/dl Albumin/Globulin Ratio 0.5 L (0.9-2) TSH 5.170 H (0.300-4.500) uIu/ml
[2018-08-13 07:15] LABS: BUN Creatinine Ratio 9.9 (10-20); Calcium 7.5 mg/dl (8.5-10.1); Creatinine Clr Calc Pharmacy 182.4 ml/min; Est GFR (African American) 135.9; Est GFR (Non-African American) 117.2; Potassium 3.8 mmol/L (3.5-5.1)
[2018-08-13 07:25] LABS: Albumin Globulin Ratio 0.5 (0.9-2); Bilirubin,Total 18.5 mg/dl (0.2-1); T4 Free Thyroxine 1.45 ng/dl (0.8-1.6)
[2018-08-13 07:41] LABS: Bilirubin Direct 12.3 mg/dl (0-0.2)
[2018-08-13] MEDS: THIAMINE HCL 100 MG TAB PO SCH (08:32)
[2018-08-13] MEDS: MULTIVITAMIN TAB PO SCH (08:32)
[2018-08-13] MEDS: FOLIC ACID 1 MG TAB PO SCH (08:32)
--- NOTE | 2018-08-13 12:02 | Gastroenterology Progress Note ---
Date of Service August 13, 2018 Subjective Pt is more alert today - per nurse and family, oriented to placed and time. He is tolerating PO, without obvious signs of aspiration. He was seen by surgery service, and not though to have cholecystitis. He was also seen by nephro service, dx'd with hypotonic hypervolemic hyponatremia, placed on fluid restriction. He began NAC protcol and IV steroids yesterday. His VS show tachy, resolution of his fever, intermittent hypertension, pulse ox in the low 90's. He appears comfortable on exam. He answers questions appropriately. HEENT: icterus, no thrush CV: RRR, tachy Resp: decr BS bilat bases Abd: Mildly increased distention compared to yest with central dullness to perc uss; + hsm; + flank edema Extrem: mild pedal edema Labs reviewed: Creat remains WNL, Na 131, bili 18, INR 2.8, WBC WNL A/P: Alc hep - Cont steroids - pt currently serena PO, will change from Solumedrol to prednisolone. Con NAC protocol to complete 5 days of IV NAC. He appears to have ascites today - repeat uls, plan dx tap if ascites seen. His INR is increasing - will give vit K 5 mg today and recheck tomorrow. He has mild delirium that is presumably related to DT's - follow, consider xifaxan if slow to resolve. Hgb is stable, cont to follow. Results & Data Vital Signs (Past 12 Hours) Vital Signs Temp Pulse Pulse Resp BP BP Pulse Ox 08/13/18 11:12 37.2 C 101 H 20 140/83 93 08/13/18 08:24 103 H 138/87 08/13/18 07:11 37.1 C 100 H 20 175/108 H 92 08/13/18 03:03 36.9 C 102 H 24 144/92 H 91 08/13/18 00:35 36.9 C 106 H 24 144/94 H 93
[2018-08-13] MEDS ORDERED: PHYTONADIONE 5 MG TAB PO STA ×2 (13:15→15:33)
[2018-08-13] MEDS ORDERED: METHYLPREDNISOLONE IV SCH (14:00)
--- NOTE | 2018-08-13 14:13 | Surgery Progress Note ---
Date of Service August 13, 2018 Assessment & Plan (1) Acute alcoholic hepatitis: 08/13/2018 Patient awake today- he is able to answer questions. denies abdominal pain GI following Primary service managing alcohol withdrawal/seizure precautions Low likelihood of acute cholecystitis- distention and edema likely secondary to cirrhosis. No indication for cholecystectomy at this time. General Surgery will continue to follow peripherally. as above. attempted to see pt. too combative /security involved. chart reviewed. no indications for surgery/not a surgical candidate at this point anyway. GB wall thickening likely to underlying cirrhosis/ascites. please call us if needed. 08/12/2018 ED notes, provider notes, labwork and recent imaging all reviewed. Reviewed patient's information with Dr. Souza. GI consultation reviewed. Low likelihood of acute cholecystitis. Gallbladder distention and gb wall thickening likely secondary to cirrhosis. Primary service to manage alcohol withdrawal/seizure precautions, electrolyte replacement, malnutrition Pt poor surgical candidate. No indication for surgical intervention at this time. Please call General Surgery with any questions or concerns. Subjective Patient awake today- answers questions appropriately. Denies abdominal pain. Physical Exam Gastrointestinal (Abdomen): Inspection/Auscultation: + abdomen distended Percussion/Palpation: abdomen nontender, no guarding and abdomen not rigid Results & Data Vital Signs (Past 12 Hours) Vital Signs Temp Pulse Pulse Resp BP BP Pulse Ox 08/13/18 11:12 37.2 C 101 H 20 140/83 93 08/13/18 08:24 103 H 138/87 08/13/18 07:11 37.1 C 100 H 20 175/108 H 92 08/13/18 03:03 36.9 C 102 H 24 144/92 H 91
--- NOTE | 2018-08-13 14:47 | Ultrasound Report ---
US abdomen limited HISTORY: Ascites please screen for ascites. COMPARISON: None. FINDINGS: Survey evaluation of the abdomen shows a trace amount of perihepatic ascites. No additional ascites i s identified. IMPRESSION: Trace perihepatic ascites. The above report was generated using voice recognition software. It may contain grammatical, syntax or spelling errors. Electronically signed by: Marshall Larios M.D. 08/13/2018 2:46 PM
--- NOTE | 2018-08-13 15:10 | Hospitalist Progress Note ---
Date of Service August 13, 2018 Assessment & Plan (1) Alcohol withdrawal: History of chronic alcohol abuse, History of excessive alcohol drinking for long time, has been drinking 1/2-3/4 gallon of whiskey for last few months cough, after losing his grandmother Presented with jaundice, Had coffee-ground emesis in ER Also had multiple episodes of diarrhea with dark stool Alcohol level less than 40 Patient placed with alcohol withdrawal per protocol (2) Acute alcoholic hepatitis: Significantly elevated AST ALT with coagulopathy-intermittent alcohol liver disease AST ALT total bilirubin gradually improving CT abdomen pelvis confirmed liver cirrhosis, with evidence of portal hypertension portal hypertension GI consult appreciated, abdominal ultrasound shows trace amount of ascites, Started on rifaximin for ongoing confusion Acute hepatitis panel negative Patient is counseled multiple times for complete abstinence from alcohol, With severe alcoholic liver disease, patient's life expectancy will be less than 3-6 months if continues to drink Patient and family aware Patient will need close outpatient follow-up with GI, and EGD for assessment of esophageal varices (3) Coagulopathy: Secondary to advanced liver disease/alcoholic liver disease Auto anticoagulated secondary to liver failure, INR 2.8-not on any anticoagulation Presented with GI bleed, coffee-ground emesis, dark stool, stool heme positive in the ER For further GI bleed since admission, INR remains elevated Given FFP/ordered for vitamin K Avoid all form of anticoagulation GI following Overall prognosis remains very poor (4) Hyperbilirubinemia: Secondary to alcoholic liver disease, presented with jaundice, Bilirubin level gradually improving GI consulted, Ultrasound of abdomen, concern for possible acute cholecystitis, Surgery eval appreciated, Gallbladder wall thickening, change possibly secondary to liver cirrhosis, does not believe patient is having any acute infection/inflammation of gallbladder no indication for surgery IV antibiotic discontinued (5) Jaundice: As outlined above Patient is counseled for complete abstinence from alcohol, (6) Upper GI bleed: No further episode of GI bleed since admission Had episodes of coffee-ground emesis in the ER, multiple episodes of diarrhea, with dark stool, stool heme positive Presents with advanced alcoholic liver disease, with acute alcoholic hepatitis With coagulopathy, thrombocytopenia Also need to rule out variceal bleed-will need possible EGD when patient is medically stable, coagulopathy corrected, GI consulted Has not seen any physicians for the last 20 years, Denies of taking any Motrin or Aleve or any NSAIDs Patient is ordered for FFP, platelets Patient H&H has been stable We will DC IV Protonix drip, changed to p.o. Protonix twice daily (7) Thrombocytopenia: Secondary to advanced liver disease, possible alcoholic liver cirrhosis Platelet count 30 with active GI bleed Received platelet transfusion Follow CBC closely Avoid antiplatelets/anticoagulation CT abdomen pelvis with IV contrast shows evidence of liver cirrhosis, portal hypertension, splenomegaly (8) Alcohol abuse: History of long-term alcohol abuse months after in family Patient has been drinking heavily gallons of whiskey Is on alcohol withdrawal protocol, No active sign or symptoms of alcohol withdrawal so far, (9) Tobacco abuse: smokes 1-2 pks cig a day Smoking cessation counseling provided (10) Hyponatremia: due to chronic alchoholic liver disease nephrology consulted Appreciate input Sodium level gradually improved FULL CODE DVT PROPHYLAXIS : scd and teds avoid anticoagulation due to thromobocytopenia /coagulopahty DISPOSITION : to be determined will need Alcohol rehab Social service consulted to assist in discharge planning pt needs to establish care with a family physician Subjective More awake and alert today, multiple family members present at bedside, Patient mentions of being very tired, no evidence of GI bleed, H&H been stable Diet advanced, tolerating well Physical Exam Constitutional: + ill appearing Jaundiced Eyes: Deeply icteric sclera, improvement of eye discharge ENMT: external ear and nose normal, oropharynx normal Neck: trachea midline, no thyromegaly Respiratory: normal respiratory effort, lungs clear to auscultation Cardiovascular: RRR, no murmur, no edema Gastrointestinal (Abdomen): Distended, positive for ascites, multiple petechiae on abdomen, Skin: Petechiae noted on face, torso, and abdomen Neurologic: PERRL, EOMI, accommodation nl, no face palsy, no dysarthria Results & Data Vital Signs (Past 12 Hours) Vital Signs Temp Pulse Resp BP BP Pulse Ox 08/13/18 11:12 37.2 C 101 H 20 140/83 93 08/13/18 08:24 103 H 138/87 08/13/18 07:11 37.1 C 100 H 20 175/108 H 92 (1) Alcohol withdrawal Complication of substance-induced condition: with delirium Qualified Code(s): F10.231 - Alcohol dependence with withdrawal delirium
[2018-08-13] MEDS: LORazepam 2 MG/4 ML VIAL IV PRN ×2 (15:35→23:49)
[2018-08-13] MEDS: AcetylCYSTEINE 10,000 MG in DEXTROSE 5% 1,000 ML IV SCH (15:39)
[2018-08-13] MEDS ORDERED: RIFAXIMIN 550 MG TABLET PO SCH (21:00)
[2018-08-13] MEDS: PANTOprazole 40 MG TAB PO SCH (21:25)
[2018-08-14] MEDS ORDERED: GABAPENTIN 600 MG TAB PO SCH (02:00)
[2018-08-14] MEDS: LORazepam 3 MG/6 ML VIAL IV PRN ×3 (02:13→05:45)
[2018-08-14 06:57] LABS: Hematocrit (blood only) 35.3 % (42-52); Hemoglobin 12.4 g/dL (14.0-18.0); Mean Corpuscular Hgb Conc 35.1 g/dL (32-36); Mean Corpuscular Volume 96.7 fL (80-100); RDW Standard Deviation 61.1 fL (36.4-46.3); Red Blood Count 3.65 M/uL (4.7-6.1)
[2018-08-14 07:02] LABS: Mean Platelet Volume 10.6 fL (7.4-10.4); Platelet Count 50 K/uL (130-400)
[2018-08-14 07:04] LABS: INR 2.5 (0.9-1.1)
[2018-08-14 07:28] LABS: Albumin Level 2.3 gm/dl (3.4-5.0); BUN Creatinine Ratio 12.4 (10-20); Calcium 8.4 mg/dl (8.5-10.1); Est GFR (African American) 136.7; Est GFR (Non-African American) 117.9; Potassium 3.5 mmol/L (3.5-5.1)
[2018-08-14 07:34] LABS: Albumin Globulin Ratio 0.5 (0.9-2); Bilirubin,Total 14.8 mg/dl (0.2-1); Globulin 4.5 gm/dl (2.5-4.0); Total Protein 6.8 gm/dl (6.4-8.2)
[2018-08-14] MEDS: PANTOprazole 40 MG TAB PO SCH ×2 (07:50→20:36)
[2018-08-14] MEDS: AcetylCYSTEINE 10,000 MG in DEXTROSE 5% 1,000 ML IV SCH ×2 (07:51→21:58)
[2018-08-14] MEDS: FOLIC ACID 1 MG TAB PO SCH ×2 (07:51→10:06)
[2018-08-14] MEDS: THIAMINE HCL 100 MG TAB PO SCH ×2 (07:51→10:06)
[2018-08-14] MEDS: MULTIVITAMIN TAB PO SCH (07:51)
[2018-08-14] MEDS: prednisoLONE SYRUP 15 MG/5 ML BTL PO SCH ×2 (07:52→10:06)
[2018-08-14] MEDS: LORazepam 2 MG/4 ML VIAL IV PRN (08:19)
--- NOTE | 2018-08-14 09:35 | Critical Care Consultation ---
Date of Consultation August 14, 2018 Assessment & Plan (1) Admitted to intensive care unit: Reason critically ill: Jeromy Perez is a 42 year old male with no significant past medical history with acute alcoholic hepatitis and alcohol withdrawal. Neuro: s/p last drink of alcohol about 66 hours ago with alcohol withdrawal causing hallucinations/altered mental status. - Was previously on Ativan requiring high doses with persistant agitation. Also, had gabapentin on board. - Last EtOH severity score was 14. - Starting phenobarbital - Holding Ativan and Gabapentin. Cardiac/Vascular - Tachycardic from alcohol withdrawal sympathetic activity. Pulm: - normal oxygenation on RA, lungs clear on exam. GI: - GI was consulted on has been onboard since admission. - Patient with imaging studies in hospital that showed: * 08/12: Abd/Pelvis CT with IV contrast: Distended/thick-walled gallbladder with trace pericholesystic fluid; Cirrhotic liver, small amount of ascites and trace bilat pleural effusions; colonic wall thickening likely due to cirrhosis; multiple abdominal varicosities noted most pronounced within right retroperitoneal space. * 08/12: Liver U/S Cirrhosis with recanalized paraumbilical vein indicative of portal hypertension. Trace ascites. * 08/13: Abd U/S Trace perihepatic ascites - Coresafe feeding tube needed as patient unable to follow commands and not able to provide adequate nutrition with PO feeds. - will start low protein tube feeds with Fibersource starting at 10mL/hr, increase by 10mL/hr q3h to goal of 50mL/hr. - will order ammonia level for consideration for hepatic encephalopathy. - ordered Acetaminophen level. - Thiamine 500mg IV q8h x3days, then 250mg IV q24hr x 5 doses. - Continue with NAC for total 5 days. : No current need for bryant cath. Endo: No history of DM or thyroid disease. Heme: - Autoanticoagulated secondary to cirrhosis, INR today 2.5. Will give Vitamin K to help livers ability to replenish clotting factors. - Received FFP x2 on 08/12. - Thrombocytopenia, today 50. Received Platelet transfusion on 08/12 x1. - Hgb 12.4 with iron studies supporting anemia of chronic disease. ID: No signs of infection, not currently requiring antibiotics. Lines: Peripheral IVs intact. DVT ppx: SCDs, chemical ppx contraindicated because of liver disease causing elevated INR - auto-anitcoagulated. Resuscitation status: Full code. Supervising Physician Co-Signing Physician Notes Dr. Garcia was resident physician during care of patient. I separately evaluated patient for hsieh portions of the history and the exam. I was present during the critical portion of medical decision making, and I discussed the case with the resident. I generally agree with the findings and plan. I have reviewed the gastroenterology notes as well as the nephrology notes. Patient is at high risk for morbidity mortality, high meld high discriminant function secondary to alcoholic hepatitis (acute). Patient is an active alcohol withdrawal requiring phenobarbital as adequate sedation was not achieved with Ativan and gabapentin. Given the acute hepatic insufficiency we have slowly been increasing the total phenobarbital dose. Patient was initially amenable to verbal redirection however his agitation continued to increase requiring chemical and physical restraint. If the patient continues to have combative behavior as he was kicking at staff as well as his own family members will proceed with intubation for his and staff's safety. I have personally spent 85 minutes of critical care time in the direct management of this patient. This is a life/limb threatening event. This includes time spent evaluating patient, direct bedside care, chart review, placing orders, interpretation of diagnostic studies, discussion with consultants, patient, and/or family members regarding treatment decisions, as well as other required patient management activities. This time is exclusive of all separately billable procedures, and teaching time and separate from and in addition to any other critical care service time. Clinical update: Patient continued to be combative and required locked restraints secondary to this combative behavior placing staff and his family and himself at risk. We are still attempting to walk a fine line between oversedation and enough sedation. Patient does become somnolent at times continue to watch for apnea and hypoxia. Unfortunately the patient does rebound to becomes violently aggressive again requiring continued physical locked restraints, kicking staff members, grabbing family members. History of Present Illness Reason for Consultation: Alcohol Withdrawal Management Requesting Physician: Bekah Pereira MD Attending Physician: Bekah Pereira MD History of Present Illness Caveat: History Limited by - Altered Mental Status. Historian Girlfriend whom lives with him. Jeromy Perez is a 42 year old male with no significant past medical history had onset of icteric sclera about one week ago. Girlfriend notes that Jeromy had been drinking heavily Wine for the past 3 months to cope with his grandmother passing whom raised him and their dog dying. She notes that he would drink upon waking up and drink all day with very minimal food intake. She notes he tried to cut back intake of alcohol on Friday, 5 days ago with last drink on Friday at 4:30pm about 2.5 days ago. She brought him to ED because of generalized jaundice. During hospital admission, he was noted to be going through alcohol withdrawal and had altered mental status. His lab work showed elevated LFTs, thrombocytopenia, auto-anticoagulation with elevated INR and was treated with Vit K, FFP x2, and platelets x1. He has been hallucinating with treatment for withdrawal and had decreased urine output. There was concern for delirium tr emens and patient was transferred here to ICU for further medication management. Allergies Allergy/AdvReac Type Severity Reaction Status Date / Time amoxicillin Allergy Severe Hives Verified 08/11/18 23:25 ibuprofen Allergy Intermediate Hives Verified 08/11/18 23:25 Home Medications Home Medications Medication Instructions Recorded Confirmed Type No Known Home Medications 08/11/18 08/11/18 History Patient History Medical History No pertinent past medical history Surgical History No pertinent past surgical history Social History Preferred Language: Moroccan Communication Ability: Impaired Communication Ability Comment: CURRENTLY IMPAIRED D/T WITHDRAWAL [employer] Consultant Required: No Beliefs That Will Affect Care: None Current Living Situation: Spouse Other Information That Helps Us Care for You: No Feels Safe at Home: Yes Safety Concerns: Feels Safe At This Time Smoking Status: Current every day smoker Tobacco Type: cigarettes Tobacco Cessation Education Requested by Patient: No Hx Alcohol Use: Yes Alcohol type: wine Review of Systems Review of Systems: Unobtainable due to cognitive status Physical Exam Constitutional: + ill appearing and + altered mental status Limited by: Altered Mental Status Eyes: sclerae not anicteric ENMT: Nose: no nasal discharge Neck: normal visual inspection and trachea midline Respiratory: normal respiratory effort, lungs clear to auscultation Cardiovascular: Rate/Rhythm: regular rhythm and + tachycardic Heart Sounds: no murmur Extremities: + edema Gastrointestinal (Abdomen): Inspection/Auscultation: normal bowel sounds Pe rcussion/Palpation: abdomen nontender and no guarding no caput medusae, no nayka signs, no ken signs Musculoskeletal: Head/Neck/Chest: normocephalic and head atraumatic Skin: + jaundice petechiae on upper chest Neurologic: moves all extremities; no focal motor deficits no asterixis Psychiatric: drowsy but easily arousable on transfer then agitated getting out of bed needing re-direction, oriented to person, not oriented to place - thinks he is on cough at home, not oriented to time - thinks it is 2017. Follows simple commands. Results & Data Vital Signs (Past 12 Hours) Vital Signs Temp Pulse Pulse Resp BP BP Pulse Ox 08/14/18 05:45 37.2 C 118 H 22 148/95 H 08/14/18 03:15 37.1 C 102 H 22 150/90 H 96 08/14/18 02:16 37.2 C 118 H 22 148/98 H 93 08/14/18 01:21 95 H 08/13/18 23:07 36.9 C 102 H 147/94 H 94 Laboratory Results Laboratory Results - last 24 hr 08/13/18 08/14/18 08/14/18 11:00 06:32 06:32 WBC 8.20 RBC 3.65 L Hgb 12.4 L Hct 35.3 L MCV 96.7 MCH 34.0 MCHC 35.1 RDW Std Deviation 61.1 H RDW Coeff of Sarah 17.0 H Plt Count 50 L MPV 10.6 H PT 24.0 H INR 2.5 H Sodium Potassium Chloride Carbon Dioxide Anion Gap BUN Creatinine Est Cr Clr Drug Dosing Est GFR ( Amer) Est GFR (Non-Af Amer) BUN/Creatinine Ratio Glucose Calcium Total Bilirubin Direct Bilirubin AST ALT Alkaline Phosphatase Total Protein Albumin Globulin Albumin/Globulin Ratio Stl C. diff Tox B Gene Negative Cdiff Gene 08/14/18 06:32 WBC RBC Hgb Hct MCV MCH MCHC RDW Std Deviation RDW Coeff of Sarah Plt Count MPV PT INR Sodium 133 L Potassium 3.5 Chloride 95 L Carbon Dioxide 31 Anion Gap 6.0 BUN 9 Creatinine 0.69 Est Cr Clr Drug Dosing 185.0 Est GFR ( Amer) 136.7 Est GFR (Non-Af Amer) 117.9 BUN/Creatinine Ratio 12.4 Glucose 116 H Calcium 8.4 L Total Bilirubin 14.8 H Direct Bilirubin 10.0 H AST 139 H ALT 108 H Alkaline Phosphatase 163 H Total Protein 6.8 Albumin 2.3 L Globulin 4.5 H Albumin/Globulin Ratio 0.5 L Stl C. diff Tox B Gene Medications Administered Folic Acid (Folvite) 1 mg PO QAM [facility] Stop: 09/11/18 08:59 Last Admin: 08/14/18 10:06 Dose: Not Given Documented by: [id number] Admin: 08/13/18 08:32 Dose: 1 mg Documented by: [id number] Admin: 08/12/18 12:49 Dose: Not Given Documented by: [id number] Gabapentin (Neurontin) 600 mg PO Q12H [facility] Last Admin: 08/14/18 02:13 Dose: Not Given Documented by: [id number] Lorazepam (Ativan) 1 mg in 2 mls @ 2 mls/min IV UD PRN; Protocol PRN Reason: EtOH Withdrawl AWSS Score 6,7 Stop: 09/11/18 01:06 Last Admin: 08/12/18 02:11 Dose: 2 mls/min Documented by: [id number] Lorazepam (Ativan) 2 mg in 4 mls @ 4 mls/min IV UD PRN; Protocol PRN Reason: EtOH Withdrawl AWSS Score 8,9 Stop: 09/11/18 01:06 Last Admin: 08/14/18 08:19 Dose: 4 mls/min Documented by: [id number] Admin: 08/13/18 23:49 Dose: 4 mls/min Documented by: [id number] Admin: 08/13/18 15:35 Dose: 4 mls/min Documented by: [id number] Admin: 08/12/18 23:33 Dose: 4 mls/min Documented by: [id number] Admin: 08/12/18 10:07 Dose: 4 mls/min Documented by: [id number] Admin: 08/12/18 08:46 Dose: 4 mls/min Documented by: [id number] Admin: 08/12/18 03:53 Dose: 4 mls/min Documented by: [id number] Lorazepam (Ativan) 3 mg in 6 mls @ 4 mls/min IV ONCE PRN; Protocol PRN Reason: EtOH Withdrawl AWSS Score >=10 Stop: 09/11/18 01:06 Last Admin: 08/14/18 05:45 Dose: 4 mls/min Documented by: [id number] Admin: 08/14/18 03:45 Dose: 4 mls/min Documented by: [id number] Admin: 08/14/18 02:13 Dose: 4 mls/min Documented by: [id number] Admin: 08/13/18 03:17 Dose: 4 mls/min Documented by: [id number] Admin: 08/12/18 06:29 Dose: 4 mls/min Documented by: [id number] Acetylcysteine 10,000 mg/ (Dextrose) 1,050 mls @ 65.625 mls/hr IV .Q16H SANDRA; Protocol Stop: 08/17/18 16:30 Last Admin: 08/14/18 07:51 Dose: 65.6 mls/hr Documented by: [id number] Infusion: 08/14/18 07:49 Dose: 0 mls/hr Documented by: [id number] Admin: 08/13/18 15:39 Dose: 65.6 mls/hr Documented by: [id number] Parenteral Electrolytes (Normosol-R) 1,000 mls @ 80 mls/hr IV .[id number] [facility]DR[facility] Stop: 09/13/18 10:29 Last Admin: 08/14/18 10:34 Dose: 80 mls/hr Documented by: [id number] Thiamine HCl 500 mg/ Sodium (Chloride) 105 mls @ 210 mls/hr IV Q8H [facility] Stop: 08/17/18 03:29 Last Admin: 08/14/18 11:19 Dose: 210 mls/hr Documented by: [id number] Ioversol (Optiray 320 100ml) 94 ml IV ONCE PRN PRN Reason: Interaction Checking Stop: 08/16/18 11:30 Last Admin: 08/12/18 11:31 Dose: 94 ml Documented by: [id number] Multivitamins (Multivitamin Tab) 1 tab PO QAM [facility] Stop: 09/11/18 08:59 Last Admin: 08/14/18 07:51 Dose: 1 tab Documented by: [id number] Admin: 08/13/18 08:32 Dose: 1 tab Documented by: [id number] Admin: 08/12/18 12:49 Dose: Not Given Documented by: [id number] Pantoprazole Sodium (Protonix) 40 mg PO BID [facility]DRA Stop: 09/12/18 20:59 Last Admin: 08/14/18 07:50 Dose: 40 mg Documented by: [id number] Admin: 08/13/18 21:25 Dose: Not Given Documented by: [id number] Prednisone (Prelone) 40 mg PO DAILY [facility] Stop: 09/11/18 14:59 Last Admin: 08/14/18 10:06 Dose: Not Given Documented by: [id number] Admin: 08/12/18 18:10 Dose: Not Given Documented by: [id number]
--- NOTE | 2018-08-14 09:48 | Gastroenterology Progress Note ---
Date of Service August 14, 2018 Assessment & Plan (1) Acute alcoholic hepatitis: 42 year old male admitted w/ significant alcoholic hepatitis, cirrhosis. DF = 70 which is suggestive of a a > 50% mortality rate in the next 6 months. Coagulopathy from liver disease but no current evidence of hemodynamically significant gross GI bleeding. Pt is new to me this AM, but verbalized concerns to RN on floor about ETOH withdrawal, possible need for 1-1. He is pleasant on examination, answering qu estions appropriately but is hard to direct, pulling at lines - Trend PLT, PT/INR, LFTs - ETOH withdrawal protocol - Xifaxan 550 BID - IV NAC per protocol - Continue steroids for ETOH hep - If no improvement in 7 days can D/C - If continued improvement will need taper - Appreciate ongoing management of electrolytes - No current indication for IP EGD evaluation - OP GI follow up w/ MELD labs, HCC screen, EGD discussed w/ family - ETOH cessation was stressed Thank you for allowing us to participate in the care of this patient. Please call with any acute changes, questions or concerns. Please see addendum below with additional recommendation from my supervising physician. Attg add: I interviewed and examined pt, reviewed chart and labs. Pt with confusion, transferred to ICU and began phenobarb. Exam shows pt who is alert but confused. Abd exam unchanged. He has worsening edema on extremity exam. Labs show decreased bilirubin and normal creat. A/p: Alc hep - Cont predisone, currently day #3. Cont Nac, currently day 3, plan to complete 5 days. Would ask hospitalist to consider reduced dosing of phenobarb for DTs rx, given prolonged half life of this med in pts with liver disease. Subjective Pt was seen and evaluated, chart reviewed. Family and nursing at bedside. Pt was evaluated around 0815. He is more confused, agitated this AM. Did not sleep. He is pleasant on examinations, answering questions appropriately although is hard to direct. Denies any abdominal pain. No nausea, vomiting. No black/bloody stools. US ABD: trace ascites Liver US: cirrhosis w/ evidence of portal HTN CT ABD/pelvis: cirrhotic liver Review of Systems Constitutional: + fatigue; no fever, no chills and no body aches Respiratory: no cough, no dyspnea and no wheezing Cardiovascular: no chest pain, no dyspnea and no claudication Gastrointestinal: no abdominal pain, no coffee ground emesis, no hematemesis, no change in bowel habits, no diarrhea/loose stools, no blood in stools and no melena Physical Exam Constitutional: WD/WN, vitals as above Respiratory: normal respiratory effort, lungs clear to auscultation Cardiovascular: Rate/Rhythm: regular rhythm and + tachycardic Heart Sounds: no click and no murmur Gastrointestinal (Abdomen): Inspection/Auscultation: normal bowel sounds Percussion/Palpation: abdomen soft; abdomen nontender, no guarding and abdomen not rigid Results & Data Vital Signs (Past 12 Hours) Vital Signs Temp Pulse Pulse Resp BP BP Pulse Ox 08/14/18 05:45 37.2 C 118 H 22 148/95 H 08/14/18 03:15 37.1 C 102 H 22 150/90 H 96 08/14/18 02:16 37.2 C 118 H 22 148/98 H 93 08/14/18 01:21 95 H 08/13/18 23:07 36.9 C 102 H 147/94 H 94
[2018-08-14] MEDS ORDERED: PHENOBARBITAL SODIUM IV ONE (10:30)
[2018-08-14] MEDS: NORMOSOL-R 1,000 ML IV SCH (10:34)
[2018-08-14] MEDS ORDERED: PHENobarbital sodium 65 MG/ML VIAL IV PRN (10:34)
[2018-08-14] MEDS ORDERED: PHYTONADIONE 5 MG in SODIUM CHLORIDE 0.9% 50 ML IV ONE (10:35)
[2018-08-14] MEDS: THIAMINE HCL 500 MG in 0.9 % SODIUM CHLORIDE 100 ML IV SCH ×2 (11:19→20:35)
[2018-08-14] MEDS ORDERED: LORazepam 2 MG/4 ML VIAL IV STA (12:23)
[2018-08-14] MEDS ORDERED: LORazepam 2 MG/4 ML VIAL ONE (12:23)
[2018-08-14] MEDS ORDERED: PROPRANOLOL HCL 1 MG/ML 1 ML VIAL IV STA (13:20)
[2018-08-14] MEDS ORDERED: PHENobarbital sodium 130 MG/ML VIAL IV ONE (13:20)
[2018-08-14] MEDS ORDERED: PHENobarbital sodium 65 MG/ML VIAL IV STA (13:21)
[2018-08-14] MEDS ORDERED: PROPRANOLOL HCL 1 MG/ML 1 ML VIAL IV SCH (13:30)
[2018-08-14] MEDS ORDERED: PHENobarbital sodium 65 MG/ML VIAL IV ONE (15:21)
[2018-08-14 16:37] LABS: Magnesium 2.1 mg/dl (1.8-2.4); Phosphorus 3.1 mg/dl (2.5-4.9)
[2018-08-14 17:32] LABS: Anti Nuclear Antibody Screen NEGATIVE (NEGATIVE); Ceruloplasmin 23 MG/DL (18-36); Hepatitis B Core Antibody Total NON-REACTIVE (NON-REACTIVE)
[2018-08-14] MEDS: PHENOBARBITAL SODIUM IV SCH ×2 (18:39→21:58)
[2018-08-14] MEDS: FIBERSOURCE HN 1.2 CAL 1000 ML BAG PO SCH (20:05)
--- NOTE | 2018-08-14 20:20 | Hospitalist Progress Note ---
Date of Service August 14, 2018 Assessment & Plan (1) Alcohol withdrawal: Developed acute alcohol withdrawal/delirium tremens, agitated, combative, no response with multiple doses of IV Ativan Transferred down to ICU Appreciate input from ICU team, started on IV phenobarbital Requiring large dose to sedate History of chronic alcohol abuse, History of excessive alcohol drinking for long time, has been drinking 1/2-3/4 gallon of whiskey for last few months cough, after losing his grandmother Presented with jaundice, Had coffee-ground emesis in ER Also had multiple episodes of diarrhea with dark stool Alcohol level less than 40 Patient was placed with alcohol withdrawal per protocol-with gabapentin, IV Ativan -went into acute withdrawal/DT today 08/14/2018 requiring ICU transfer (2) Acute alcoholic hepatitis: Significantly elevated AST ALT with coagulopathy-intermittent alcohol liver disease AST ALT total bilirubin gradually improving CT abdomen pelvis confirmed liver cirrhosis, with evidence of portal hypertension portal hypertension GI consult appreciated, abdominal ultrasound shows trace amount of ascites, Started on rifaximin for ongoing confusion Acute hepatitis panel negative Patient is counseled multiple times for complete abstinence from alcohol, With severe alcoholic liver disease, patient's life expectancy will be less than 3-6 months if continues to drink Patient and family aware Patient will need close outpatient follow-up with GI, and EGD for assessment of esophageal varices Patient is transferred to ICU for acute alcohol withdrawal (3) Coagulopathy: Secondary to advanced liver disease/alcoholic liver disease Auto anticoagulated secondary to liver failure, INR 2.8-not on any anticoagulation Presented with GI bleed, coffee-ground emesis, dark stool, stool heme positive in the ER For further GI bleed since admission, INR remains elevated Given FFP/ordered for vitamin K Avoid all form of anticoagulation GI following Overall prognosis remains very poor (4) Hyperbilirubinemia: Secondary to alcoholic liver disease, presented with jaundice, Bilirubin level gradually improving GI consulted, Ultrasound of abdomen, concern for possible acute cholecystitis, Surgery eval appreciated, Gallbladder wall thickening, change possibly secondary to liver cirrhosis, does not believe patient is having any acute infection/inflammation of gallbladder no indication for surgery IV antibiotic discontinued (5) Jaundice: As outlined above Patient is counseled for complete abstinence from alcohol, (6) Upper GI bleed: No further episode of GI bleed since admission Had episodes of coffee-ground emesis in the ER, multiple episodes of diarrhea, with dark stool, stool heme positive Presents with advanced alcoholic liver disease, with acute alcoholic hepatitis With coagulopathy, thrombocytopenia Also need to rule out variceal bleed-will need possible EGD when patient is medically stable, coagulopathy corrected, GI consulted Has not seen any physicians for the last 20 years, Denies of taking any Motrin or Aleve or any NSAIDs Patient is ordered for FFP, platelets Patient H&H has been stable IV Protonix drip discontinued, ordered p.o. Protonix daily (7) Thrombocytopenia: Secondary to advanced liver disease, possible alcoholic liver cirrhosis Platelet count 30 with active GI bleed Received platelet transfusion Follow CBC closely Avoid antiplatelets/anticoagulation CT abdomen pelvis with IV contrast shows evidence of liver cirrhosis, portal hypertension, splenomegaly (8) Alcohol abuse: History of long-term alcohol abuse months after in family Patient has been drinking heavily gallons of whiskey Is on alcohol withdrawal protocol, Developed acute alcohol withdrawal, severe agitation delirium tremens requiring ICU transfer (9) Tobacco abuse: smokes 1-2 pks cig a day Smoking cessation counseling provided (10) Hyponatremia: due to chronic alchoholic liver disease nephrology consulted Appreciate input Sodium level gradually improved FULL CODE DVT PROPHYLAXIS : scd and teds avoid anticoagulation due to thromobocytopenia /coagulopahty DISPOSITION : ICU transfer for acute alcohol withdrawal Subjective Developed severe agitation, withdrawal reaction this morning, given approximately 11 mg of IV Ativan with no response, patient was transferred to ICU for DT Remains confused agitated, combative, requiring restraint Appreciate input from ICU team, patient started with IV phenobarbital Physical Exam Constitutional: + ill appearing Very agitated, combative, delirious Eyes: Deeply icteric sclera ENMT: Oral mucous membrane dry Respiratory: normal respiratory effort; no respiratory distress and no cough Auscultation: lungs clear to auscultation bilaterally; no crackles and no wheezes Cardiovascular: RRR, no murmur, no edema Gastrointestinal (Abdomen): Distended, positive for ascites, nontender, no rebound, bowel sounds hypoactive Musculoskeletal: Multiple petechial rash, all over torso, extremities, abdomen Neurologic: + confused Agitated, combative Results & Data Vital Signs (Past 12 Hours) Vital Signs Temp Pulse Resp BP Pulse Ox 08/14/18 19:01 91 H 98 08/14/18 19:00 90 134/92 100 08/14/18 18:01 93 H 97 08/14/18 18:00 92 H 132/106 H 99 08/14/18 17:11 37.3 C 94 H 15 127/98 98 08/14/18 17:01 97 H 98 08/14/18 17:00 94 H 127/98 98 08/14/18 16:00 96 H 123/95 98 08/14/18 15:00 91 H 128/93 95 08/14/18 14:00 126 H 27 H 181/122 H 90 08/14/18 13:00 37.3 C 127 H 23 137/94 84 L 08/14/18 12:15 116 H 25 H 155/101 H 91 08/14/18 11:00 118 H 23 97 08/14/18 10:00 36.6 C 109 H 32 H 95 (1) Alcohol withdrawal Complication of substance-induced condition: with delirium Qualified Code(s): F10.231 - Alcohol dependence with withdrawal delirium
[2018-08-14] MEDS: RIFAXIMIN 550 MG TABLET PO SCH (20:36)
[2018-08-15] MEDS: NORMOSOL-R 1,000 ML IV SCH ×3 (00:34→20:47)
[2018-08-15] MEDS: THIAMINE HCL 500 MG in 0.9 % SODIUM CHLORIDE 100 ML IV SCH ×3 (02:31→20:46)
[2018-08-15 04:19] LABS: Hematocrit (blood only) 35.6 % (42-52); Hemoglobin 12.3 g/dL (14.0-18.0); Mean Corpuscular Hgb Conc 34.6 g/dL (32-36); Mean Corpuscular Volume 99.7 fL (80-100); RDW Coefficient of Variation 17.1 % (11.5-14.5); RDW Standard Deviation 62.2 fL (36.4-46.3); Red Blood Count 3.57 M/uL (4.7-6.1); White Blood Count 6.77 K/uL (4.8-10.8)
[2018-08-15 04:30] LABS: INR 2.3 (0.9-1.1); Prothrombin Time 21.9 Seconds (9.0-12.0)
[2018-08-15 04:54] LABS: Albumin Globulin Ratio 0.5 (0.9-2); BUN Creatinine Ratio 11.4 (10-20); Bilirubin Direct 8.4 mg/dl (0-0.2); Bilirubin,Total 11.9 mg/dl (0.2-1); Calcium 8.1 mg/dl (8.5-10.1); Creatinine Clr Calc Pharmacy 190.6 ml/min; Est GFR (African American) 138.3; Est GFR (Non-African American) 119.3; Globulin 4.3 gm/dl (2.5-4.0); Magnesium 2.2 mg/dl (1.8-2.4); Phosphorus 4.5 mg/dl (2.5-4.9); Potassium 4.3 mmol/L (3.5-5.1); Total Protein 6.3 gm/dl (6.4-8.2)
[2018-08-15] MEDS: PHENobarbital sodium 65 MG/ML VIAL IV PRN ×2 (04:55→10:06)
[2018-08-15 05:09] LABS: Mean Platelet Volume 11.4 fL (7.4-10.4); Platelet Count 49 K/uL (130-400)
--- NOTE | 2018-08-15 06:26 | Critical Care Progress Note ---
Date of Service August 15, 2018 Assessment & Plan (1) Admitted to intensive care unit: Reason critically ill: Jeromy Perez is a 42 year old male with no significant past medical history with acute alcoholic hepatitis and alcohol withdrawal. Neuro: s/p last drink of alcohol 08/11 afternoon with alcohol withdrawal causing hallucinations/altered mental status. - Was previously on Ativan requiring high doses with persistent agitation. Also, had gabapentin on board. - 08/14 EtOH severity score was 14. Today = 3 - Requiring phenobarbital - Holding Ativan and Gabapentin. - May remove restraints once is no longer displaying signs of violence and is not a threat to hurt self, staff, family members Cardiac/Vascular - Tachycardia from alcohol withdrawal sympathetic activity has improved with rates in 80s. Pulm: - normal oxygenation on RA, lungs clear on exam. GI: - GI was consulted on has been onboard since admission. - Patient with imaging studies in hospital that showed: * 08/12: Abd/Pelvis CT with IV contrast: Distended/thick-walled gallbladder with trace pericholesystic fluid; Cirrhotic liver, small amount of ascites and trace bilat pleural effusions; colonic wall thickening likely due to cirrhosis; multiple abdominal varicosities noted most pronounced within right retroperitoneal space. * 08/12: Liver U/S Cirrhosis with recanalized paraumbilical vein indicative of portal hypertension. Trace ascites. * 08/13: Abd U/S Trace perihepatic ascites - Coresafe feeding tube was considered as patient unable to follow commands and not able to provide adequate nutrition with PO feeds, with previous order placed for low protein tube feeds with Fibersource starting at 10mL/hr, increase by 10mL/hr q3h to goal of 50mL/hr. However after discussion with Hospitalist and with history of hematemesis [employer] decided to hold. - On 08/14 started, Thiamine 500mg IV q8h x3days, then 250mg IV q24hr x 5 doses. - Continue with NAC for total 5 days. : No current need for bryant cath. Endo: No history of DM or thyroid disease. Heme: - Autoanticoagulated secondary to cirrhosis, INR today 2.3. Previously gave Vitamin K to help livers ability to replenish clotting factors on 08/14. - Received FFP x2 on 08/12. - Thrombocytopenia, today 49. Received Platelet transfusion on 08/12 x1. - Hgb 12.3 with iron studies supporting anemia of chronic disease. ID: No signs of infection, not currently requiring antibiotics. Lines: Peripheral IVs intact. DVT ppx: SCDs, chemical ppx contraindicated because of liver disease causing elevated INR - auto-anticoagulated. Resuscitation status: Full code. Supervising Physician Co-Signing Physician Notes Dr. Garcia was resident physician during care of patient. I separately evaluated patient for hsieh portions of the history and the exam. I was present during the critical portion of medical decision making, and I discussed the case with the resident. I generally agree with the findings and plan. Patient's mental status has slowly been improving. We were able to discontinue the locked cuffs and restraints at 1240. Family and nursing both report improved coherent thought. INR very mildly improved. Continued ICU observation still at high risk for seizures. I have personally spent 40 minutes of critical care time in the direct management of this patient. This is a life/limb threatening event. This includes time spent evaluating patient, direct bedside care, chart review, placing orders, interpretation of diagnostic studies, discussion with consultants, patient, and/or family members regarding treatment decisions, as well as other required patient management activities. This time is exclusive of all separately billable procedures, and teaching time and separate from and in addition to any other critical care service time. Subjective Caveat: History - limited by Delirium/Altered Mental Status Kept in restraints as threatening toward family and staff overnight. Sleeping this morning. Review of Systems Review of Systems: Other (Unable to obtain due to delirium ) Physical Exam Constitutional: + ill appearing and + altered mental status Eyes: sclerae not anicteric ENMT: Nose: no nasal discharge Neck: normal visual inspection and trachea midline Respiratory: normal respiratory effort, lungs clear to auscultation Cardiovascular: Rate/Rhythm: regular rhythm and + tachycardic Heart Sounds: no murmur Extremities: + edema Gastrointestinal (Abdomen): Inspection/Auscultation: normal bowel sounds Percussion/Palpation: abdomen nontender and no guarding Musculoskeletal: Head/Neck/Chest: normocephalic and head atraumatic Skin: + jaundice Neurologic: moves all extremities; no focal motor deficits Results & Data Vital Signs (Past 12 Hours) Vital Signs Temp Pulse Pulse Pulse Resp BP BP 08/15/18 02:00 84 149/101 H 08/15/18 01:01 88 08/15/18 01:00 85 156/110 H 08/15/18 00:01 93 H 08/15/18 00:00 37.0 C 91 H 89 89 26 H 145/106 H 145/106 H 08/14/18 23:00 37.0 C 92 H 15 153/105 H 08/14/18 22:30 90 08/14/18 22:16 91 H 144/105 H 08/14/18 22:15 91 H 08/14/18 22:00 111 H 08/14/18 21:45 112 H 08/14/18 21:30 98 H 08/14/18 21:15 101 H 08/14/18 21:00 96 H 133/102 H 08/14/18 20:45 114 H 08/14/18 20:30 105 H 08/14/18 20:15 93 H 08/14/18 20:01 97 H 157/107 H 08/14/18 20:00 101 H 08/14/18 19:45 117 H 08/14/18 19:30 87 08/14/18 19:15 89 08/14/18 19:01 91 H 08/14/18 19:00 90 134/92 BP Pulse Ox 08/15/18 02:00 91 08/15/18 01:01 91 08/15/18 01:00 89 L 08/15/18 00:01 90 08/15/18 00:00 145/106 H 87 L 08/14/18 23:00 90 08/14/18 22:30 89 L 08/14/18 22:16 89 L 08/14/18 22:15 89 L 08/14/18 22:00 95 08/14/18 21:45 98 08/14/18 21:30 98 08/14/18 21:15 96 08/14/18 21:00 90 08/14/18 20:45 98 08/14/18 20:30 08/14/18 20:15 91 08/14/18 20:01 95 08/14/18 20:00 95 08/14/18 19:45 98 08/14/18 19:30 100 08/14/18 19:15 100 08/14/18 19:01 98 08/14/18 19:00 100 Laboratory Results Laboratory Results - last 24 hr 08/13/18 08/14/18 08/14/18 06:14 15:44 15:44 WBC RBC Hgb Hct MCV MCH MCHC RDW Std Deviation RDW Coeff of Sarah Plt Count MPV PT INR Sodium Potassium Chloride Carbon Dioxide Anion Gap BUN Creatinine Est Cr Clr Drug Dosing Est GFR ( Amer) Est GFR (Non-Af Amer) BUN/Creatinine Ratio Glucose Calcium Phosphorus Magnesium Total Bilirubin Direct Bilirubin AST ALT Alkaline Phosphatase Ammonia 24.1 Total Creatine Kinase Total Protein Albumin Globulin Albumin/Globulin Ratio Ceruloplasmin 23 Lipase Acetaminophen Cancelled SRINIVAS Screen NEGATIVE Hep B Core Total Ab NON-REACTIVE 08/14/18 08/15/18 08/15/18 15:44 04:10 04:10 WBC 6.77 RBC 3.57 L Hgb 12.3 L Hct 35.6 L MCV 99.7 MCH 34.5 H MCHC 34.6 RDW Std Deviation 62.2 H RDW Coeff of Sarah 17.1 H Plt Count 49 L MPV 11.4 H PT 21.9 H INR 2.3 H Sodium Potassium Chloride Carbon Dioxide Anion Gap BUN Creatinine Est Cr Clr Drug Dosing Est GFR ( Amer) Est GFR (Non-Af Amer) BUN/Creatinine Ratio Glucose Calcium Phosphorus 3.1 Magnesium 2.1 Total Bilirubin Direct Bilirubin AST ALT Alkaline Phosphatase Ammonia Total Creatine Kinase Total Protein Albumin Globulin Albumin/Globulin Ratio Ceruloplasmin Lipase Acetaminophen SRINIVAS Screen Hep B Core Total Ab 08/15/18 08/15/18 04:10 12:38 WBC RBC Hgb Hct MCV MCH MCHC RDW Std Deviation RDW Coeff of Sarah Plt Count MPV PT INR Sodium 136 Potassium 4.3 D Chloride 100 Carbon Dioxide 33 H Anion Gap 3.0 BUN 8 Creatinine 0.67 Est Cr Clr Drug Dosing 190.6 Est GFR ( Amer) 138.3 Est GFR (Non-Af Amer) 119.3 BUN/Creatinine Ratio 11.4 Glucose 92 Calcium 8.1 L Phosphorus 4.5 D Magnesium 2.2 Total Bilirubin 11.9 H Direct Bilirubin 8.4 H AST 120 H ALT 97 H Alkaline Phosphatase 136 H Ammonia Total Creatine Kinase 337 H 397 H Total Protein 6.3 L Albumin 2.0 L Globulin 4.3 H Albumin/Globulin Ratio 0.5 L Ceruloplasmin Lipase 449 H Acetaminophen SRINIVAS Screen Hep B Core Total Ab Medications Administered Enteral Nutritional Formula (Fibersource Hn 1.2 Dawit Liquid) 1,000 ml PO TODAY@1130 SANDRA; Protocol Stop: 09/13/18 11:29 Last Admin: 08/15/18 12:58 Dose: Not Given Documented by: [id number] Admin: 08/14/18 20:05 Dose: Not Given Documented by: [id number] Folic Acid (Folvite) 1 mg PO QAM [facility] Stop: 09/11/18 08:59 Last Admin: 08/15/18 10:30 Dose: Not Given Documented by: [id number] Admin: 08/14/18 10:06 Dose: Not Given Documented by: [id number] Admin: 08/13/18 08:32 Dose: 1 mg Documented by: [id number] Admin: 08/12/18 12:49 Dose: Not Given Documented by: [id number] Gabapentin (Neurontin) 600 mg PO Q12H [facility] Last Admin: 08/14/18 02:13 Dose: Not Given Documented by: [id number] Lorazepam (Ativan) 1 mg in 2 mls @ 2 mls/min IV UD PRN; Protocol PRN Reason: EtOH Withdrawl AWSS Score 6,7 Stop: 09/11/18 01:06 Last Admin: 08/12/18 02:11 Dose: 2 mls/min Documented by: [id number] Lorazepam (Ativan) 2 mg in 4 mls @ 4 mls/min IV UD PRN; Protocol PRN Reason: EtOH Withdrawl AWSS Score 8,9 Stop: 09/11/18 01:06 Last Admin: 08/14/18 08:19 Dose: 4 mls/min Documented by: [id number] Admin: 08/13/18 23:49 Dose: 4 mls/min Documented by: [id number] Admin: 08/13/18 15:35 Dose: 4 mls/min Documented by: [id number] Admin: 08/12/18 23:33 Dose: 4 mls/min Documented by: [id number] Admin: 08/12/18 10:07 Dose: 4 mls/min Documented by: [id number] Admin: 08/12/18 08:46 Dose: 4 mls/min Documented by: [id number] Admin: 08/12/18 03:53 Dose: 4 mls/min Documented by: [id number] Lorazepam (Ativan) 3 mg in 6 mls @ 4 mls/min IV ONCE PRN; Protocol PRN Reason: EtOH Withdrawl AWSS Score >=10 Stop: 09/11/18 01:06 Last Admin: 08/14/18 05:45 Dose: 4 mls/min Documented by: [id number] Admin: 08/14/18 03:45 Dose: 4 mls/min Documented by: [id number] Admin: 08/14/18 02:13 Dose: 4 mls/min Documented by: [id number] Admin: 08/13/18 03:17 Dose: 4 mls/min Documented by: [id number] Admin: 08/12/18 06:29 Dose: 4 mls/min Documented by: [id number] Acetylcysteine 10,000 mg/ (Dextrose) 1,050 mls @ 65.625 mls/hr IV .Q16H SANDRA; Protocol Stop: 08/17/18 16:30 Last Admin: 08/14/18 21:58 Dose: 65.6 mls/hr Documented by: [id number] Infusion: 08/14/18 21:58 Dose: 65.6 mls/hr Documented by: [id number] Infusion: 08/14/18 12:19 Dose: 65.6 mls/hr Documented by: [id number] Admin: 08/14/18 07:51 Dose: 65.6 mls/hr Documented by: [id number] Infusion: 08/14/18 07:49 Dose: 0 mls/hr Documented by: [id number] Admin: 08/13/18 15:39 Dose: 65.6 mls/hr Documented by: [id number] Parenteral Electrolytes (Normosol-R) 1,000 mls @ 100 mls/hr IV .Q10H [facility] Stop: 09/13/18 10:29 Last Admin: 08/15/18 13:47 Dose: 80 mls/hr Documented by: [id number] Infusion: 08/15/18 13:04 Dose: 80 mls/hr Documented by: [id number] Admin: 08/15/18 00:34 Dose: 80 mls/hr Documented by: [id number] Infusion: 08/14/18 23:04 Dose: 80 mls/hr Documented by: [id number] Admin: 08/14/18 10:34 Dose: 80 mls/hr Documented by: [id number] Thiamine HCl 500 mg/ Sodium (Chloride) 105 mls @ 210 mls/hr IV Q8H [facility] Stop: 08/17/18 03:29 Last Infusion: 08/15/18 11:19 Dose: 0 mls/hr Documented by: [id number] Admin: 08/15/18 10:42 Dose: 210 mls/hr Documented by: [id number] Infusion: 08/15/18 03:01 Dose: 210 mls/hr Documented by: [id number] Admin: 08/15/18 02:31 Dose: 210 mls/hr Documented by: [id number] Infusion: 08/14/18 21:05 Dose: 210 mls/hr Documented by: [id number] Admin: 08/14/18 20:35 Dose: 210 mls/hr Documented by: [id number] Infusion: 08/14/18 12:19 Dose: 0 mls/hr Documented by: [id number] Admin: 08/14/18 11:19 Dose: 210 mls/hr Documented by: [id number] Ceftriaxone Sodium 2,000 mg/ (Dextrose) 70 mls @ 140 mls/hr IV Q24H [facility] Stop: 08/17/18 09:59 Last Infusion: 08/15/18 10:52 Dose: 0 mls/hr Documented by: [id number] Admin: 08/15/18 10:05 Dose: 140 mls/hr Documented by: [id number] Ioversol (Optiray 320 100ml) 94 ml IV ONCE PRN PRN Reason: Interaction Checking Stop: 08/16/18 11:30 Last Admin: 08/12/18 11:31 Dose: 94 ml Documented by: [id number] Multivitamins (Multivitamin Tab) 1 tab PO QAM [facility] Stop: 09/11/18 08:59 Last Admin: 08/15/18 10:30 Dose: Not Given Documented by: [id number] Admin: 08/14/18 07:51 Dose: 1 tab Documented by: [id number] Admin: 08/13/18 08:32 Dose: 1 tab Documented by: [id number] Admin: 08/12/18 12:49 Dose: Not Given Documented by: [id number] Pantoprazole Sodium (Protonix) 40 mg PO BID [facility] Stop: 09/12/18 20:59 Last Admin: 08/15/18 10:30 Dose: Not Given Documented by: [id number] Admin: 08/14/18 20:36 Dose: Not Given Documented by: [id number] Admin: 08/14/18 07:50 Dose: 40 mg Documented by: [id number] Admin: 08/13/18 21:25 Dose: Not Given Documented by: [id number] Phenobarbital Sodium (Phenobarbital Sodium) 45 mg IV Q8H PRN; Protocol PRN Reason: HR >110, RASS >2, tremors, ... Stop: 09/13/18 10:33 Last Admin: 08/15/18 10:06 Dose: 45 mg Documented by: [id number] Admin: 08/15/18 04:55 Dose: 45 mg Documented by: [id number] Prednisone (Prelone) 40 mg PO DAILY [facility] Stop: 09/11/18 14:59 Last Admin: 08/15/18 10:30 Dose: Not Given Documented by: [id number] Admin: 08/14/18 10:06 Dose: Not Given Documented by: [id number] Admin: 08/12/18 18:10 Dose: Not Given Documented by: [id number] Rifaximin (Xifaxan) 550 mg PO BID [facility] Stop: 09/13/18 20:59 Last Admin: 08/15/18 10:31 Dose: Not Given Documented by: [id number] Admin: 08/14/18 20:36 Dose: Not Given Documented by: [id number] Resident Activity Tracking Resident Involvement: Resident Care Provided Care Provided: Adult Hospital Medicine (ICU)
[2018-08-15] MEDS ORDERED: cefTRIAXone SODIUM 1,000 MG in DEXTROSE 5% 50 ML IV SCH (09:00)
[2018-08-15] MEDS ORDERED: cefTRIAXone SODIUM 2,000 MG in DEXTROSE 5% 50 ML IV SCH (10:00)
[2018-08-15] MEDS: prednisoLONE SYRUP 15 MG/5 ML BTL PO SCH (10:30)
[2018-08-15] MEDS: PANTOprazole 40 MG TAB PO SCH ×2 (10:30→20:47)
[2018-08-15] MEDS: FOLIC ACID 1 MG TAB PO SCH (10:30)
[2018-08-15] MEDS: MULTIVITAMIN TAB PO SCH (10:30)
[2018-08-15] MEDS: PHENOBARBITAL SODIUM IV SCH (10:31)
[2018-08-15] MEDS: RIFAXIMIN 550 MG TABLET PO SCH ×2 (10:31→20:47)
--- NOTE | 2018-08-15 12:48 | Hospitalist Progress Note ---
Date of Service August 15, 2018 Assessment & Plan (1) Alcohol withdrawal: Going to acute alcohol withdrawal/delirium tremens, agitated, combative, Required four-point restraint, continue management in ICU IV phenobarbital as per ICU team History of chronic alcohol abuse, History of excessive alcohol drinking for long time, has been drinking 1/2-3/4 gallon of whiskey for last few months cough, after losing his grandmother Presented with jaundice, coffee-ground emesis in ER (has not seen any doctor for 20 years) Also had multiple episodes of diarrhea with dark stool Alcohol level less than 40 Patient was placed with alcohol withdrawal per protocol-with gabapentin, IV Ativan -went into acute withdrawal/DT today 08/14/2018 requiring ICU transfer (2) Acute alcoholic hepatitis: Presented with significantly elevated AST ALT with coagulopathy-intermittent alcohol liver disease AST ALT total bilirubin gradually improving CT abdomen pelvis confirmed liver cirrhosis, with evidence of portal hypertension portal hypertension GI consult appreciated, abdominal ultrasound shows trace amount of ascites, Started on rifaximin for ongoing confusion Acute hepatitis panel negative Patient is counseled multiple times for complete abstinence from alcohol, With severe alcoholic liver disease, patient's life expectancy will be less than 3-6 months if continues to drink Patient and family aware Patient will need close outpatient follow-up with GI, and EGD for assessment of esophageal varices Patient is transferred to ICU for acute alcohol withdrawal (3) Coagulopathy: Secondary to advanced liver disease/alcoholic liver disease Auto anticoagulated secondary to liver failure, INR 2.8-not on any anticoagulation Presented with GI bleed, coffee-ground emesis, dark stool, stool heme positive in the ER For further GI bleed since admission, INR remains elevated Given FFP/ordered for vitamin K Avoid all form of anticoagulation Follow PT/INR closely, recommend intermittent vitamin K to keep INR below 2 to prevent bleeding risk Overall prognosis remains very poor (4) Hyperbilirubinemia: Secondary to alcoholic liver disease, presented with jaundice, Bilirubin level gradually improving GI consulted, Ultrasound of abdomen, concern for possible acute cholecystitis, Surgery eval appreciated, Gallbladder wall thickening, change possibly secondary to liver cirrhosis, does not believe patient is having any acute infection/inflammation of gallbladder no indication for surgery IV antibiotic discontinued (5) Jaundice: As outlined above Patient is counseled for complete abstinence from alcohol, (6) Upper GI bleed: No further episode of GI bleed since admission Had episodes of coffee-ground emesis in the ER, multiple episodes of diarrhea, with dark stool, stool heme positive Presents with advanced alcoholic liver disease, with acute alcoholic hepatitis With coagulopathy, thrombocytopenia Also need to rule out variceal bleed-will need possible EGD when patient is medically stable, coagulopathy corrected, GI consulted Has not seen any physicians for the last 20 years, Denies of taking any Motrin or Aleve or any NSAIDs Patient given FFP, platelets transfusion Patient H&H has been stable IV Protonix drip discontinued, ordered p.o. Protonix daily (7) Thrombocytopenia: Secondary to advanced liver disease, possible alcoholic liver cirrhosis Platelet count 30 with active GI bleed Received platelet transfusion Follow CBC closely Avoid antiplatelets/anticoagulation CT abdomen pelvis with IV contrast shows evidence of liver cirrhosis, portal hypertension, splenomegaly (8) Alcohol abuse: History of long-term alcohol abuse months after in family Patient has been drinking heavily gallons of whiskey Is on alcohol withdrawal protocol, Developed acute alcohol withdrawal, severe agitation delirium tremens requiring ICU transfer (9) Tobacco abuse: smokes 1-2 pks cig a day Smoking cessation counseling provided (10) Hyponatremia: due to chronic alchoholic liver disease nephrology consulted Appreciate input Sodium level gradually improved FULL CODE DVT PROPHYLAXIS : scd and teds avoid anticoagulation due to thromobocytopenia /coagulopahty DISPOSITION : Continue ICU monitoring for acute alcohol withdrawal Subjective Continues to go through severe alcohol withdrawal, delirium tremens, was agitated overnight, required four-point restrain Getting large amount of phenobarbital This morning patient remains confused, wants to get out of bed and walk around Patient is counseled multiple times, it is not safe for him to get out of bed yet, Continues to insist Girlfriend and sister present at bedside Physical Exam Constitutional: + ill appearing Confused and agitated ENMT: Mouth: + oral mucosal abnormality (Dry oral mucosa) Neck: trachea midline, no thyromegaly Respiratory: normal respiratory effort, lungs clear to auscultation normal respiratory effort; no respiratory distress and no cough Auscultation: lungs clear to auscultation bilaterally; no crackles and no wheezes Cardiovascular: RRR, no murmur, no edema Gastrointestinal (Abdomen): Positive ascites, distended Neurologic: PERRL, EOMI, accommodation nl, no face palsy, no dysarthria + confused Psychiatric: True active alcohol withdrawal, hallucinating, combative agitated Results & Data Vital Signs (Past 12 Hours) Vital Signs Pulse BP Pulse Ox 08/15/18 02:00 84 149/101 H 91 08/15/18 01:01 88 91 08/15/18 01:00 85 156/110 H 89 L (1) Alcohol withdrawal Complication of substance-induced condition: with delirium Qualified Code(s): F10.231 - Alcohol dependence with withdrawal delirium
[2018-08-15] MEDS: FIBERSOURCE HN 1.2 CAL 1000 ML BAG PO SCH (12:58)
[2018-08-15 13:12] LABS: Creatine Kinase 397 U/L (39-308)
[2018-08-15] MEDS ORDERED: GABAPENTIN 600 MG TAB PO SCH (14:00)
[2018-08-15] MEDS: AcetylCYSTEINE 10,000 MG in DEXTROSE 5% 1,000 ML IV SCH (14:42)
--- NOTE | 2018-08-15 15:40 | Gastroenterology Progress Note ---
Date of Service August 15, 2018 Subjective Events noted. Pt remains in restraints on phenobarb. VS noted. I's /o's show tht pt is persistently fluidpositive, primarily due to NAC infusion. He is sleeping, but arouses to voice. CV: RRR Resp: CTA Abd:Soft NT Etrem: mild pedal edema Labs reviewed - bili decreased, creat stable A/P: Alc hep - Day 4 of pred / NAC with falling bilirubin. Lille score calculated at day 4, predicts response to steroids -- although this may be impacted by phenobarbital therapy, which may induce bilirubin metabolism. His creat is stable. He has received micronutrient replacement but is currently NPO due to aspiration risk from DT's/delirium -- if he is not able to eat by tomorrow, will consider coresafe, although I have concerns about his ability to tolerate placement of this. He is persistently volume positive, primarily due to NAC infusion -- will plan for diuretic therapy if volume status worsens. Results & Data Vital Signs (Past 12 Hours) Vital Signs Temp Pulse Resp BP Pulse Ox 08/15/18 15:00 87 129/85 94 08/15/18 14:00 88 115/79 93 08/15/18 13:00 36.8 C 82 121/92 96 08/15/18 12:00 86 129/89 94 08/15/18 11:00 83 140/86 93 08/15/18 10:00 83 129/81 94 08/15/18 09:00 89 14 128/90 94 08/15/18 08:00 36.9 C 85 15 125/88 99 08/15/18 07:00 99 H 18 153/100 H 98
[2018-08-15] MEDS: PHENobarbital 32.4 MG TAB PO SCH (20:47)
[2018-08-16] MEDS: THIAMINE HCL 500 MG in 0.9 % SODIUM CHLORIDE 100 ML IV SCH ×3 (02:21→19:30)
[2018-08-16 04:09] LABS: Hematocrit (blood only) 33.8 % (42-52); Hemoglobin 11.8 g/dL (14.0-18.0); Mean Corpuscular Hgb Conc 34.9 g/dL (32-36); RDW Coefficient of Variation 16.5 % (11.5-14.5); RDW Standard Deviation 59.1 fL (36.4-46.3); Red Blood Count 3.45 M/uL (4.7-6.1); White Blood Count 5.46 K/uL (4.8-10.8)
[2018-08-16 04:25] LABS: INR 2.2 (0.9-1.1); Prothrombin Time 21.4 Seconds (9.0-12.0)
[2018-08-16 04:30] LABS: Mean Platelet Volume 10.6 fL (7.4-10.4); Platelet Count 46 K/uL (130-400)
[2018-08-16 04:44] LABS: Alanine Aminotransferase 91 U/L (12-78); Albumin Globulin Ratio 0.5 (0.9-2); Albumin Level 1.8 gm/dl (3.4-5.0); Alkaline Phosphatase 133 U/L (45-117); Aspartate Aminotransferase 110 U/L (15-37); BUN Creatinine Ratio 11.8 (10-20); Bilirubin Direct 7.2 mg/dl (0-0.2); Bilirubin,Total 10.3 mg/dl (0.2-1); Blood Urea Nitrogen 6 mg/dl (7-18); Calcium 7.7 mg/dl (8.5-10.1); Carbon Dioxide 32 mmol/L (21-32); Chloride 100 mmol/L (98-107); Creatinine Clr Calc Pharmacy 232.2 ml/min; Est GFR (African American) > 150.0; Est GFR (Non-African American) 129.4; Glucose 91 mg/dl (70-99); Phosphorus 4.1 mg/dl (2.5-4.9); Potassium 3.5 mmol/L (3.5-5.1); Sodium 134 mmol/L (136-145); Total Protein 5.8 gm/dl (6.4-8.2)
[2018-08-16] MEDS: AcetylCYSTEINE 10,000 MG in DEXTROSE 5% 1,000 ML IV SCH (05:38)
[2018-08-16] MEDS: PANTOprazole 40 MG TAB PO SCH ×3 (06:52→20:48)
[2018-08-16] MEDS: PHENobarbital 32.4 MG TAB PO SCH ×3 (06:52→21:25)
[2018-08-16] MEDS: RIFAXIMIN 550 MG TABLET PO SCH ×3 (06:52→20:48)
[2018-08-16] MEDS: FOLIC ACID 1 MG TAB PO SCH (08:26)
[2018-08-16] MEDS: prednisoLONE SYRUP 15 MG/5 ML BTL PO SCH (08:27)
[2018-08-16] MEDS: MULTIVITAMIN TAB PO SCH (08:27)
--- NOTE | 2018-08-16 08:47 | Critical Care Progress Note ---
Date of Service August 16, 2018 Supervising Physician Co-Signing Physician Notes (1) Admitted to intensive care unit: Reason critically ill: Jeromy Perez is a 42 year old male with no significant past medical history with acute alcoholic hepatitis and alcohol withdrawal. Neuro: Acute encephalopathy Hyperactive delirium: Delirium tremens -Significant improvement with phenobarbital titration -No longer requiring physical restraint -Discontinued breakthrough phenobarbital reinstitute Ativan based off of alcohol withdrawal score -Finish oral phenobarbital Cardiac/Vascular - Tachycardia: Resolved Pulm: - normal oxygenation on RA, lungs clear on exam. GI: -Alcoholic hepatitis -Steroids per gastroenterology -Gastroenterology reports no variceal bleeding: Discontinued Rocephin -Low-salt low-fat diet ordered Cirrhosis: Alcoholic : Discontinue Robledo catheter today Renal: 40 M EQ's potassium chloride today x2 magnesium oxide 400 mg twice daily Endo: No history of DM or thyroid disease. Heme: Anemia: Megaloblastic -Thiamine, folate, B12 supplementation Auto anticoagulation secondary to liver disease -Continue supplemental vitamin K -5 mg vitamin K by mouth ID: Monitor fever curve Lines: Peripheral IVs intact. DVT ppx: SCDs, chemical ppx contraindicated because of liver disease causing elevated INR -and thrombocytopenia Resuscitation status: Full code. Subjective Patient feels slightly improved. Requests urinary catheter to be removed. No chest pain no vomiting. Overnight he has been without physical restraints and oriented for greater than 12 hours. Review of Systems Review of Systems: no vomiting, no chest pain. Physical Exam Physical Exam: General: Alert. nontoxic. Skin: Warm, dry, jaundiced Eyes: Scleral icterus Head: Atraumatic Ears, nose, mouth and throat: airway patent Cardiovascular: Normal peripheral perfusion Respiratory: no respiratory distress Gastrointestinal: Non distended Musculoskeletal: No deformity Results & Data Vital Signs (Past 12 Hours) Vital Signs Temp Pulse Pulse Resp BP Pulse Ox 08/16/18 06:00 84 84 18 128/85 93 08/16/18 05:00 84 84 16 129/98 95 08/16/18 03:00 90 90 16 130/96 97 08/16/18 02:00 90 90 18 143/114 H 97 08/16/18 01:00 90 90 16 121/90 94 08/16/18 00:00 88 88 16 133/92 92 08/15/18 23:00 90 90 17 127/92 97 08/15/18 22:00 94 H 94 H 20 137/81 94 08/15/18 21:00 36.8 C 85 85 20 132/85 93 Laboratory Results 08/16/18 08/16/18 08/16/18 Range/Units 03:50 03:50 03:50 WBC 5.46 (4.8-10.8) K/uL RBC 3.45 L (4.7-6.1) M/uL Hgb 11.8 L (14.0-18.0) g/dL Hct 33.8 L (42-52) % MCV 98.0 (80-100) fL MCH 34.2 H (25-34) pg MCHC 34.9 (32-36) g/dL RDW Std Deviation 59.1 H (36.4-46.3) fL RDW Coeff of Sarah 16.5 H (11.5-14.5) % Plt Count 46 L (130-400) K/uL MPV 10.6 H (7.4-10.4) fL PT 21.4 H (9.0-12.0) Seconds INR 2.2 H (0.9-1.1) Sodium 134 L (136-145) mmol/L Potassium 3.5 D (3.5-5.1) mmol/L Chloride 100 (98-107) mmol/L Carbon Dioxide 32 (21-32) mmol/L Anion Gap 2.0 L (3-11) BUN 6 L (7-18) mg/dl Creatinine 0.55 L (0.6-1.4) mg/dl Est Cr Clr Drug Dosing 232.2 ml/min Est GFR ( Amer) > 150.0 Est GFR (Non-Af Amer) 129.4 BUN/Creatinine Ratio 11.8 (10-20) Glucose 91 (70-99) mg/dl Calcium 7.7 L (8.5-10.1) mg/dl Phosphorus 4.1 (2.5-4.9) mg/dl Magnesium 2.0 (1.8-2.4) mg/dl Total Bilirubin 10.3 H (0.2-1) mg/dl Direct Bilirubin 7.2 H (0-0.2) mg/dl AST 110 H (15-37) U/L ALT 91 H (12-78) U/L Alkaline Phosphatase 133 H (45-117) U/L Total Creatine Kinase (39-308) U/L Total Protein 5.8 L (6.4-8.2) gm/dl Albumin 1.8 L (3.4-5.0) gm/dl Globulin 4.0 (2.5-4.0) gm/dl Albumin/Globulin Ratio 0.5 L (0.9-2) Lipase 391 (73-393) U/L 08/15/18 08/15/18 Range/Units 20:52 12:38 WBC (4.8-10.8) K/uL RBC (4.7-6.1) M/uL Hgb (14.0-18.0) g/dL Hct (42-52) % MCV (80-100) fL MCH (25-34) pg MCHC (32-36) g/dL RDW Std Deviation (36.4-46.3) fL RDW Coeff of Sarah (11.5-14.5) % Plt Count (130-400) K/uL MPV (7.4-10.4) fL PT (9.0-12.0) Seconds INR (0.9-1.1) Sodium (136-145) mmol/L Potassium (3.5-5.1) mmol/L Chloride (98-107) mmol/L Carbon Dioxide (21-32) mmol/L Anion Gap (3-11) BUN (7-18) mg/dl Creatinine (0.6-1.4) mg/dl Est Cr Clr Drug Dosing ml/min Est GFR ( Amer) Est GFR (Non-Af Amer) BUN/Creatinine Ratio (10-20) Glucose (70-99) mg/dl Calcium (8.5-10.1) mg/dl Phosphorus (2.5-4.9) mg/dl Magnesium (1.8-2.4) mg/dl Total Bilirubin (0.2-1) mg/dl Direct Bilirubin (0-0.2) mg/dl AST (15-37) U/L ALT (12-78) U/L Alkaline Phosphatase (45-117) U/L Total Creatine Kinase 267 397 H (39-308) U/L Total Protein (6.4-8.2) gm/dl Albumin (3.4-5.0) gm/dl Globulin (2.5-4.0) gm/dl Albumin/Globulin Ratio (0.9-2) Lipase 449 H (73-393) U/L
[2018-08-16] MEDS: POTASSIUM CHLORIDE 20 MEQ TABCR PO SCH ×2 (08:49→20:48)
[2018-08-16] MEDS: MAGNESIUM OXIDE 400 MG TAB PO SCH ×2 (08:49→20:49)
[2018-08-16] MEDS ORDERED: PHYTONADIONE 5 MG TAB PO SCH (09:00)
--- NOTE | 2018-08-16 11:10 | Gastroenterology Progress Note ---
Date of Service August 16, 2018 Subjective reports edema. O/w pt without complaint. Out of restraints, much more lucid today. On exam, he is sitting in chair. he is comfortable, gives single word answers to simple questions. H CV RRR Resp: Decr BS bases Abd soft NT Extrem pitting edema Labs reviewed - bili cont to fall, albumin 1.8, creat 0.5 A/P: Alc hep - Day #5 of prednisolone and IV NAC protocol with improved bilirubin and day 4 Lille score predicting steroid response; can d/c NAC. Of note, on phenoba rb, which may affect bili and Lille score. He has edema, likely related to IVFs and hypalbuminemia - will given single dose oral diuretics. Has received > 3 days vit K dose - no need to continue. Cont empirix xifaxan, add zinc. He is markedly hypoabuminemic - follow now that PO intake will be resumed. Results & Data Vital Signs (Past 12 Hours) Vital Signs Pulse Pulse Resp BP Pulse Ox 08/16/18 06:00 84 84 18 128/85 93 08/16/18 05:00 84 84 16 129/98 95 08/16/18 03:00 90 90 16 130/96 97 08/16/18 02:00 90 90 18 143/114 H 97 08/16/18 01:00 90 90 16 121/90 94 08/16/18 00:00 88 88 16 133/92 92
[2018-08-16] MEDS ORDERED: FUROSEMIDE 40 MG TAB PO ONE (11:13)
--- NOTE | 2018-08-16 11:46 | Hospitalist Progress Note ---
Date of Service August 16, 2018 Assessment & Plan (1) Alcohol withdrawal: Recovered from acute alcohol withdrawal symptoms Vitals stable, stable to be transferred out of the ICU Developed acute alcohol withdrawal/delirium tremens, agitated, combative, Required four-point restraint, Appreciate input from ICU team, was treated with IV phenobarbital History of chronic alcohol abuse, History of excessive alcohol drinking for long time, has been drinking 1/2-3/4 gallon of whiskey for last few months cough, after losing his grandmother Presented with jaundice, coffee-ground emesis in ER (has not seen any doctor for 20 years) Also had multiple episodes of diarrhea with dark stool Alcohol level less than 40 Patient was placed with alcohol withdrawal per protocol-with gabapentin, IV Ativan -went into acute withdrawal/DT 08/14/2018 requiring ICU transfer (2) Acute alcoholic hepatitis: Presented with significantly elevated AST ALT with coagulopathy-intermittent alcohol liver disease AST ALT total bilirubin gradually improving CT abdomen pelvis confirmed liver cirrhosis, with evidence of portal hypertension portal hypertension GI consult appreciated, abdominal ultrasound shows trace amount of ascites, Started on rifaximin for ongoing confusion Acute hepatitis panel negative Patient is counseled multiple times for complete abstinence from alcohol, With severe alcoholic liver disease, patient's life expectancy will be less than 3-6 months if continues to drink Patient and family aware Patient will need close outpatient follow-up with GI, and EGD for assessment of esophageal varices Stable to be transferred to floor (3) Coagulopathy: Secondary to advanced liver disease/alcoholic liver disease Auto anticoagulated secondary to liver failure, INR 2.8-not on any anticoagulation Presented with GI bleed, coffee-ground emesis, dark stool, stool heme positive in the ER For further GI bleed since admission, INR remains elevated Given FFP/ordered for vitamin K Avoid all form of anticoagulation F Overall prognosis remains very poor (4) Hyperbilirubinemia: Secondary to alcoholic liver disease, presented with jaundice, Bilirubin level gradually improving GI consulted, Ultrasound of abdomen, concern for possible acute cholecystitis, Surgery eval appreciated, Gallbladder wall thickening, change possibly secondary to liver cirrhosis, does not believe patient is having any acute infection/inflammation of gallbladder no indication for surgery IV antibiotic discontinued (5) Jaundice: As outlined above Patient is counseled for complete abstinence from alcohol, (6) Upper GI bleed: No further episode of GI bleed since admission Had episodes of coffee-ground emesis in the ER, multiple episodes of diarrhea, with dark stool, stool heme positive Presents with advanced alcoholic liver disease, with acute alcoholic hepatitis With coagulopathy, thrombocytopenia Also need to rule out variceal bleed-will need possible EGD when patient is medically stable, coagulopathy corrected, GI consulted Has not seen any physicians for the last 20 years, Denies of taking any Motrin or Aleve or any NSAIDs Patient given FFP, platelets transfusion Patient H&H has been stable IV Protonix drip discontinued, ordered p.o. Protonix daily (7) Thrombocytopenia: Secondary to advanced liver disease, possible alcoholic liver cirrhosis Platelet count 30 with active GI bleed Received platelet transfusion Follow CBC closely Avoid antiplatelets/anticoagulation CT abdomen pelvis with IV contrast shows evidence of liver cirrhosis, portal hypertension, splenomegaly (8) Alcohol abuse: History of long-term alcohol abuse months after in family Patient has been drinking heavily gallons of whiskey She is counseled recurrently for complete abstinence from alcohol (9) Tobacco abuse: smokes 1-2 pks cig a day Smoking cessation counseling provided (10) Hyponatremia: due to chronic alchoholic liver disease nephrology consulted Appreciate input Sodium level gradually improved FULL CODE DVT PROPHYLAXIS : scd and teds avoid anticoagulation due to thromobocytopenia /coagulopahty DISPOSITION : Transferred out of ICU/medical telemetry Subjective Sitting on chair, very appropriate, In some agitation no combativeness noted had uneventful night, no sign of symptoms of active alcohol withdrawal Vitals stable Stable to be transferred out of ICU Physical Exam Constitutional: + ill appearing ENMT: external ear and nose normal, oropharynx normal Mouth: + oral mucosal abnormality (Dry oral mucosa) Neck: trachea midline, no thyromegaly Respiratory: normal respiratory effort, lungs clear to auscultation normal respiratory effort; no respiratory distress and no cough Auscultation: lungs clear to auscultation bilaterally; no crackles and no wheezes Cardiovascular: RRR, no murmur, no edema Neurologic: PERRL, EOMI, accommodation nl, no face palsy, no dysarthria + confused Results & Data Vital Signs (Past 12 Hours) Vital Signs Pulse Pulse Resp BP Pulse Ox 08/16/18 06:00 84 84 18 128/85 93 08/16/18 05:00 84 84 16 129/98 95 08/16/18 03:00 90 90 16 130/96 97 08/16/18 02:00 90 90 18 143/114 H 97 08/16/18 01:00 90 90 16 121/90 94 08/16/18 00:00 88 88 16 133/92 92 (1) Alcohol withdrawal Complication of substance-induced condition: with delirium Qualified Code(s): F10.231 - Alcohol dependence with withdrawal delirium
[2018-08-16] MEDS: NORMOSOL-R 1,000 ML IV SCH (11:59)
[2018-08-16] MEDS ORDERED: PHYTONADIONE 5 MG TAB PO STA (19:40)
[2018-08-16] MEDS ORDERED: THIAMINE HCL 250 MG in SODIUM CHLORIDE 0.9% 50 ML IV SCH (21:00)
[2018-08-16] MEDS: LORazepam 1 MG TAB PO PRN (21:25)
[2018-08-17] MEDS: THIAMINE HCL 500 MG in 0.9 % SODIUM CHLORIDE 100 ML IV SCH (03:25)
[2018-08-17 07:19] LABS: Hematocrit (blood only) 39.9 % (42-52); Hemoglobin 13.7 g/dL (14.0-18.0); Mean Corpuscular Hgb Conc 34.3 g/dL (32-36); Mean Corpuscular Volume 101.3 fL (80-100); RDW Coefficient of Variation 16.5 % (11.5-14.5); RDW Standard Deviation 61.3 fL (36.4-46.3); Red Blood Count 3.94 M/uL (4.7-6.1); White Blood Count 9.02 K/uL (4.8-10.8)
[2018-08-17 07:25] LABS: Platelet Count 59 K/uL (130-400); Prothrombin Time 19.4 Seconds (9.0-12.0)
[2018-08-17 07:48] LABS: Albumin Level 2.4 gm/dl (3.4-5.0); BUN Creatinine Ratio 13.1 (10-20); Calcium 8.8 mg/dl (8.5-10.1); Creatinine Clr Calc Pharmacy 173.9 ml/min; Est GFR (African American) 132.8; Est GFR (Non-African American) 114.6
[2018-08-17 07:50] LABS: Albumin Globulin Ratio 0.5 (0.9-2); Bilirubin,Total 8.1 mg/dl (0.2-1); Globulin 4.8 gm/dl (2.5-4.0); Total Protein 7.2 gm/dl (6.4-8.2)
[2018-08-17] MEDS: RIFAXIMIN 550 MG TABLET PO SCH ×2 (08:19→22:34)
[2018-08-17] MEDS: FOLIC ACID 1 MG TAB PO SCH (08:19)
[2018-08-17] MEDS: PANTOprazole 40 MG TAB PO SCH ×2 (08:19→22:33)
[2018-08-17] MEDS: MAGNESIUM OXIDE 400 MG TAB PO SCH (08:19)
[2018-08-17] MEDS: prednisoLONE SYRUP 15 MG/5 ML BTL PO SCH (08:20)
[2018-08-17] MEDS: ZINC SULFATE 220 MG CAPSULE PO SCH (08:20)
[2018-08-17] MEDS: MULTIVITAMIN TAB PO SCH (08:20)
[2018-08-17] MEDS: PHENobarbital 32.4 MG TAB PO SCH ×2 (08:22→08:24)
--- NOTE | 2018-08-17 08:53 | Gastroenterology Progress Note ---
Date of Service August 17, 2018 Assessment & Plan (1) Acute alcoholic hepatitis: 42 year old male admitted w/ significant alcoholic hepatitis, cirrhosis. DF = 70 which is suggestive of a a > 50% mortality rate in the next 6 months. Coagulopathy from liver disease but no current evidence of hemodynamically significant gross GI bleeding. He was started on NAC protocol, prednisolone. This AM, pt is awake, alert and oriented x 3 answering questions appropriately. He is tearful discussing his ETOH addiction and wishes going forward he will be able to remain ETOH free and move forward w/ OP rehabilitation - DF improved to 40 - Trend PLT, PT/INR, LFTs - ETOH withdrawal protocol - Xifaxan 550 BID - Continue steroids for ETOH hep - Day #6 of prednisolone - Plan for full 28 days w/ taper over 1 month - Appreciate ongoing management of electrolytes - No current indication for IP EGD evaluation - OP GI follow up w/ MELD labs, HCC screen, EGD discussed w/ family - ETOH cessation was stressed - He is agreeable to rehabilitation program at discharge Thank you for allowing us to participate in the care of this patient. Please call with any acute changes, questions or concerns. Please see addendum below with additional recommendation from my supervising physician. Supervising Physician Co-Signing Physician Notes I have seen and examined the patient and discussed the patient's management with MOHAMUD Soto. 42 yo male with a history of cirrhosis per imaging and per labs (low platelets), now on treatment for alcoholic hepatitis -improving bilirubin. Multiple family members at bedside. Exam today per my assessment significant for him being oriented to person/place and not time. Physical exam: perrla, lungs ctab, exam is soft nt nd +bs. Labs reviewed :plt around 50, tb around 8, slight ast/alt/alk phos elevation all from likely alcoholic hepatitis. Continue NAC/Prednisolone- if bilirubing continues to trend down, likely 28 day course of Prednisolone. Subjective Pt was seen and evaluated, chart reviewed. Family at bedside. Transfered out of ICU. He is awake, alert and oriented this AM. Verbalizes understanding of how sick he is, chronic condition, wish to completely abstain from ETOH. Reports dysuria, dark urine otherwise offers no complaints. no abd pain, no nausea, vomting. Tolerating PO. No fever, chills, CP, SOB. US ABD: trace ascites Liver US: cirrhosis w/ evidence of portal HTN CT ABD/pelvis: cirrhotic liver Review of Systems Constitutional: no fever, no chills, no body aches and no weakness Respiratory: no cough, no dyspnea, no pain on inspiration and no wheezing Cardiovascular: no chest pain, no radiating jaw, neck or arm pain, no dyspnea on exertion and no palpitations Gastrointestinal: no abdominal pain, no belching, no early satiety, no heart burn, no vomiting, no coffee ground emesis, no hematemesis, no cramping, no mccall ge in bowel habits, no diarrhea/loose stools, no fecal incontinence, no blood in stools and no melena Physical Exam Constitutional: well developed and well nourished; no acute distress Respiratory: normal respiratory effort, lungs clear to auscultation Cardiovascular: RRR, no murmur, no edema Gastrointestinal (Abdomen): Inspection/Auscultation: abdomen normal to inspection and normal bowel sounds Percussion/Palpation: abdomen soft; abdomen nontender, no guarding, abdomen not rigid and no ascites Skin: no rashes, warm and dry + jaundice Results & Data Vital Signs (Past 12 Hours) Vital Signs Temp Pulse Pulse Resp BP Pulse Ox 08/17/18 08:06 36.7 C 97 H 18 147/95 H 97 08/17/18 04:28 36.8 C 106 H 18 137/94 94 08/17/18 02:22 104 H Laboratory Results 08/17/18 08/17/18 08/17/18 Range/Units 06:42 06:42 06:42 WBC 9.02 (4.8-10.8) K/uL RBC 3.94 L (4.7-6.1) M/uL Hgb 13.7 L (14.0-18.0) g/dL Hct 39.9 L (42-52) % MCV 101.3 H (80-100) fL MCH 34.8 H (25-34) pg MCHC 34.3 (32-36) g/dL RDW Std Deviation 61.3 H (36.4-46.3) fL RDW Coeff of Sarah 16.5 H (11.5-14.5) % Plt Count 59 L (130-400) K/uL MPV 11.0 H (7.4-10.4) fL PT 19.4 H (9.0-12.0) Seconds INR 2.0 H (0.9-1.1) Sodium 136 (136-145) mmol/L Potassium 4.0 (3.5-5.1) mmol/L Chloride 100 (98-107) mmol/L Carbon Dioxide 30 (21-32) mmol/L Anion Gap 6.0 (3-11) BUN 10 (7-18) mg/dl Creatinine 0.74 (0.6-1.4) mg/dl Est Cr Clr Drug Dosing 173.9 ml/min Est GFR ( Amer) 132.8 Est GFR (Non-Af Amer) 114.6 BUN/Creatinine Ratio 13.1 (10-20) Glucose 89 (70-99) mg/dl Calcium 8.8 (8.5-10.1) mg/dl Total Bilirubin 8.1 H (0.2-1) mg/dl Direct Bilirubin 6.0 H (0-0.2) mg/dl AST 116 H (15-37) U/L ALT 109 H (12-78) U/L Alkaline Phosphatase 159 H (45-117) U/L Total Protein 7.2 D (6.4-8.2) gm/dl Albumin 2.4 L (3.4-5.0) gm/dl Globulin 4.8 H (2.5-4.0) gm/dl Albumin/Globulin Ratio 0.5 L (0.9-2) Lipase 439 H (73-393) U/L
[2018-08-17] MEDS: LORazepam 1 MG/2 ML VIAL IV PRN (11:26)
--- NOTE | 2018-08-17 17:44 | Hospitalist Progress Note ---
Date of Service August 17, 2018 Assessment & Plan (1) Alcohol withdrawal: Recovered from acute alcohol withdrawal Awake alert and oriented, very appropriate Phenobarbital discontinued, requiring less amount of intermittent Ativan, Once to be discharged home tomorrow, patient is willing to arrange outpatient alcohol rehab supportive follow-up Information for support group/rehab given to patient by rifle case repairer History of chronic alcohol abuse, History of excessive alcohol drinking for long time, has been drinking 1/2-3/4 gallon of whiskey for last few months cough, after losing his grandmother Presented with jaundice, coffee-ground emesis in ER (has not seen any doctor for 20 years) Also had multiple episodes of diarrhea with dark stool Alcohol level less than 40 Patient was placed with alcohol withdrawal per protocol-with gabapentin, IV Ativan -went into acute withdrawal/DT 08/14/2018 requiring ICU transfer pt been stable to be transferred out of ICU on 08/16/18 (2) Acute alcoholic hepatitis: AST ALT continues to improve, On p.o. prednisone 40 mg daily Presented with significantly elevated AST ALT with coagulopathy-intermittent alcohol liver disease AST ALT total bilirubin gradually improving CT abdomen pelvis confirmed liver cirrhosis, with evidence of portal hypertension portal hypertension GI consult appreciated, abdominal ultrasound shows trace amount of ascites, Started on rifaximin for ongoing confusion/prevention for hepatic encephalopathy Acute hepatitis panel negative Patient is counseled multiple times for complete abstinence from alcohol, With severe alcoholic liver disease, patient's life expectancy will be less than 3-6 months if continues to drink Patient and family aware Patient will need close outpatient follow-up with GI, and EGD for assessment of esophageal varices -Patient is in agreeable to continue follow-up (3) Coagulopathy: Secondary to advanced liver disease/alcoholic liver disease Auto anticoagulated secondary to liver failure, INR 2.8-not on any anticoagulation Presented with GI bleed, coffee-ground emesis, dark stool, stool heme positive in the ER For further GI bleed since admission, INR remains elevated Overall prognosis remains very poor (4) Hyperbilirubinemia: Secondary to alcoholic liver disease, presented with jaundice, Bilirubin level gradually improving GI allowing Ultrasound of abdomen, concern for possible acute cholecystitis, Surgery eval appreciated, Gallbladder wall thickening, change possibly secondary to liver cirrhosis, does not believe patient is having any acute infection/inflammation of gallbladder no indication for surgery IV antibiotic discontinued (5) Jaundice: As outlined above Patient is counseled repeatedly for complete abstinence from alcohol, (6) Upper GI bleed: No further episode of GI bleed since admission Had episodes of coffee-ground emesis in the ER, multiple episodes of diarrhea, with dark stool, stool heme positive Presents with advanced alcoholic liver disease, with acute alcoholic hepatitis With coagulopathy, thrombocytopenia Also need to rule out variceal bleed-will need possible EGD when patient is medically stable, coagulopathy corrected, GI consulted Has not seen any physicians for the last 20 years, Denies of taking any Motrin or Aleve or any NSAIDs Patient given FFP, platelets transfusion Patient H&H has been stable IV Protonix drip discontinued, ordered p.o. Protonix daily (7) Thrombocytopenia: Secondary to advanced liver disease, possible alcoholic liver cirrhosis Platelet count 30 with active GI bleed Received platelet transfusion Follow CBC closely Avoid antiplatelets/anticoagulation CT abdomen pelvis with IV contrast shows evidence of liver cirrhosis, portal hypertension, splenomegaly (8) Alcohol abuse: History of long-term alcohol abuse months after in family Patient has been drinking heavily gallons of whiskey Recover from acute alcohol withdrawal, Wants to return home tomorrow, will arrange for outpatient alcohol rehab/addiction clinic follow-up (9) Tobacco abuse: smokes 1-2 pks cig a day Smoking cessation counseling provided (10) Hyponatremia: Normalized, due to chronic alcoholic liver disease FULL CODE DVT PROPHYLAXIS : scd and teds avoid anticoagulation due to thromobocytopenia /coagulopahty DISPOSITION : discussed plan of care at length with pt and family members possible D/c home tomorrow if no S/S of ETOH withdrawl Subjective Awake alert and oriented, Worsening appropriately, wants to return home, Paperwork's/information given for rehab, outpatient AA by rifle case repairer Patient wants to make calls to arrange all follow-ups Mother present at home, voiced concern regarding patient's returning home Patient is adamant, he says he quit drinking altogether, Feels that he is capable enough to make decisions to go to alcohol rehab Physical Exam Constitutional: + ill appearing ENMT: external ear and nose normal, oropharynx normal Mouth: + oral mucosal abnormality (Dry oral mucosa) Neck: trachea midline, no thyromegaly Respiratory: normal respiratory effort, lungs clear to auscultation normal respiratory effort; no respiratory distress and no cough Auscultation: lungs clear to auscultation bilaterally; no crackles and no wheezes Cardiovascular: RRR, no murmur, no edema Neurologic: PERRL, EOMI, accommodation nl, no face palsy, no dysarthria + confused Results & Data Vital Signs (Past 12 Hours) Vital Signs Temp Pulse Pulse Pulse Resp BP BP 08/17/18 16:24 36.8 C 104 H 20 138/97 08/17/18 16:00 103 H 08/17/18 12:00 36.6 C 106 H 18 159/99 H 08/17/18 11:20 169/123 H 08/17/18 08:06 36.7 C 97 H 18 147/95 H Pulse Ox 08/17/18 16:24 96 08/17/18 16:00 08/17/18 12:00 96 08/17/18 11:20 08/17/18 08:06 97 (1) Alcohol withdrawal Complication of substance-induced condition: with delirium Qualified Code(s): F10.231 - Alcohol dependence with withdrawal delirium
[2018-08-17] MEDS ORDERED: predniSONE 20 MG TAB PO STA (17:55)
[2018-08-17 18:14] LABS: Appearance Urine Clear (Clear); Blood Urine Negative (Negative); Color Urine Dark Yellow; Glucose Urine UA Negative (Negative); Ketones Urine Negative (Negative); Leukocyte Esterase Urine Negative (Negative); Nitrite Urine Negative (Negative); Protein Urine Negative (Negative); Specific Gravity Urine 1.009 (1.000-1.030); Urobilinogen Urine Negative (Negative); pH Urine 8.5 (4.5-7.5)
[2018-08-17 18:21] LABS: Bilirubin Urine 1+ (Negative); Ictotest Urine Positive (Negative)
[2018-08-17] MEDS: FUROSEMIDE 40 MG TAB PO SCH (19:26)
[2018-08-17] MEDS: LORazepam 1 MG TAB PO PRN (19:30)
[2018-08-17] MEDS ORDERED: PHENobarbital 32.4 MG TAB PO ONE (21:00)
[2018-08-17] MEDS ORDERED: THIAMINE HCL 250 MG in SODIUM CHLORIDE 0.9% 50 ML IV SCH (21:00)
[2018-08-17] MEDS ORDERED: Nursing to Pharmacy Communication ONE (21:57)
[2018-08-17] MEDS ORDERED: THIAMINE HCL 100 MG TAB PO SCH (22:00)
[2018-08-17] MEDS ORDERED: THIAMINE HCL 100 MG TAB PO ONE (22:30)
[2018-08-18 05:33] LABS: Hematocrit (blood only) 37.6 % (42-52); Hemoglobin 13.1 g/dL (14.0-18.0); Mean Corpuscular Hgb Conc 34.8 g/dL (32-36); Mean Corpuscular Volume 97.9 fL (80-100); RDW Coefficient of Variation 16.4 % (11.5-14.5); RDW Standard Deviation 58.6 fL (36.4-46.3); Red Blood Count 3.84 M/uL (4.7-6.1); White Blood Count 8.14 K/uL (4.8-10.8)
[2018-08-18 05:42] LABS: Prothrombin Time 19.2 Seconds (9.0-12.0)
[2018-08-18 05:46] LABS: Mean Platelet Volume 10.1 fL (7.4-10.4); Platelet Count 58 K/uL (130-400)
[2018-08-18 06:06] LABS: Albumin Globulin Ratio 0.5 (0.9-2); Albumin Level 2.2 gm/dl (3.4-5.0); BUN Creatinine Ratio 15.2 (10-20); Bilirubin Direct 4.9 mg/dl (0-0.2); Bilirubin,Total 6.7 mg/dl (0.2-1); Calcium 8.2 mg/dl (8.5-10.1); Creatinine Clr Calc Pharmacy 204.2 ml/min; Est GFR (African American) 141.9; Est GFR (Non-African American) 122.4; Globulin 4.7 gm/dl (2.5-4.0); Potassium 3.9 mmol/L (3.5-5.1); Total Protein 6.9 gm/dl (6.4-8.2)
[2018-08-18] MEDS: RIFAXIMIN 550 MG TABLET PO SCH ×2 (09:14→19:27)
[2018-08-18] MEDS: FUROSEMIDE 40 MG TAB PO SCH (09:14)
[2018-08-18] MEDS: SPIRONOLACTONE 25 MG TAB PO SCH (09:14)
[2018-08-18] MEDS: ZINC SULFATE 220 MG CAPSULE PO SCH (09:15)
[2018-08-18] MEDS: PANTOprazole 40 MG TAB PO SCH ×2 (09:15→19:26)
[2018-08-18] MEDS: FOLIC ACID 1 MG TAB PO SCH (09:15)
[2018-08-18] MEDS: MULTIVITAMIN TAB PO SCH (09:15)
[2018-08-18] MEDS ORDERED: FUROSEMIDE 40 MG in SYRINGE 0 ML IV ONE (11:00)
--- NOTE | 2018-08-18 11:40 | Gastroenterology Progress Note ---
Date of Service August 18, 2018 Assessment & Plan (1) Acute alcoholic hepatitis: 42 year old male admitted w/ significant alcoholic hepatitis, cirrhosis. DF = 70 which is suggestive of a a > 50% mortality rate in the next 6 months. Coagulopathy from liver disease but no current evidence of hemodynamically significant gross GI bleeding. He was started on NAC protocol, prednisolone. This AM, pt is awake, alert and oriented x 3 answering questions appropriately. He is tearful discussing his ETOH addiction and wishes going forward he will be able to remain ETOH free and move forward w/ OP rehabilitation - DF improved to 38 - Erica score 0.033 0.033 points Good prognosis. Scores <0.45 predict a 6-month survival of 85%. - No GI contraindication to DC home - Xifaxan 550 BID - Continue steroids for ETOH hep - Day #7 of prednisolone - Plan for full 28 days w/ taper over 1 month do - OP Hepatology follow up w/ MELD labs, HCC screen, EGD discussed w/ family - ETOH cessation was stressed - He is agreeable to rehabilitation program at discharge GI to sign off. Thank you for allowing us to participate in the care of this patient. Please call with any acute changes, questions or concerns. Please see addendum below with additional recommendation from my supervising physician. Supervising Physician Co-Signing Physician Notes I have seen and examined the patient and discussed the management with MOHAMUD Jones. I agree with her assessment and plan in its entirety. Subjective Pt was seen and evaluated, chart reviewed. OOB in chair. Visitors in room. Feels well. Tired but no abdominal pain. No nausea, vomiting. Persistent lower extremity edema. No fever, chills, CP, SOB Review of Systems Constitutional: no fever, no body aches and no weakness Respiratory: no cough, no dyspnea, no pain on inspiration and no wheezing Cardiovascular: no chest pain, no radiating jaw, neck or arm pain, no dyspnea on exertion and no claudication Gastrointestinal: no abdominal pain, no early satiety, no vomiting, no blood in stools and no melena Physical Exam Constitutional: WD/WN, vitals as above well developed and well nourished; no acute distress Respiratory: normal respiratory effort, lungs clear to auscultation Cardiovascular: RRR, no murmur, no edema Rate/Rhythm: regular rhythm and + tachycardic Heart Sounds: no click and no murmur Gastrointestinal (Abdomen): Inspection/Auscultation: abdomen normal to inspection and normal bowel sounds Percussion/Palpation: abdomen soft; abdomen nontender, no guarding, abdomen not rigid and no ascites Skin: no rashes, warm and dry + jaundice Results & Data Vital Signs (Past 12 Hours) Vital Signs Temp Pulse Pulse Resp BP Pulse Ox 08/18/18 07:52 36.8 C 98 H 18 149/93 H 95 08/18/18 04:28 36.9 C 93 H 20 144/77 H 97 Laboratory Results 08/18/18 08/18/18 08/18/18 Range/Units 05:19 05:19 05:19 WBC 8.14 (4.8-10.8) K/uL RBC 3.84 L (4.7-6.1) M/uL Hgb 13.1 L (14.0-18.0) g/dL Hct 37.6 L (42-52) % MCV 97.9 (80-100) fL MCH 34.1 H (25-34) pg MCHC 34.8 (32-36) g/dL RDW Std Deviation 58.6 H (36.4-46.3) fL RDW Coeff of Sarah 16.4 H (11.5-14.5) % Plt Count 58 L (130-400) K/uL MPV 10.1 (7.4-10.4) fL PT 19.2 H (9.0-12.0) Seconds INR 2.0 H (0.9-1.1) Sodium 135 L (136-145) mmol/L Potassium 3.9 (3.5-5.1) mmol/L Chloride 103 (98-107) mmol/L Carbon Dioxide 26 (21-32) mmol/L Anion Gap 6.0 (3-11) BUN 10 (7-18) mg/dl Creatinine 0.63 (0.6-1.4) mg/dl Est Cr Clr Drug Dosing 204.2 ml/min Est GFR ( Amer) 141.9 Est GFR (Non-Af Amer) 122.4 BUN/Creatinine Ratio 15.2 (10-20) Glucose 140 H (70-99) mg/dl Calcium 8.2 L (8.5-10.1) mg/dl Total Bilirubin 6.7 H (0.2-1) mg/dl Direct Bilirubin 4.9 H (0-0.2) mg/dl AST 99 H (15-37) U/L ALT 110 H (12-78) U/L Alkaline Phosphatase 145 H (45-117) U/L Total Protein 6.9 (6.4-8.2) gm/dl Albumin 2.2 L (3.4-5.0) gm/dl Globulin 4.7 H (2.5-4.0) gm/dl Albumin/Globulin Ratio 0.5 L (0.9-2) Lipase 455 H (73-393) U/L Urine Color Urine Appearance (Clear) Urine pH (4.5-7.5) Ur Specific [place] (1.000-1.030) Urine Protein (Negative) Urine Glucose (UA) (Negative) Urine Ketones (Negative) Urine Blood (Negative) Urine Nitrite (Negative) Urine Bilirubin (Negative) Urine Urobilinogen (Negative) Ur Leukocyte Esterase (Negative) 08/17/18 Range/Units 18:00 WBC (4.8-10.8) K/uL RBC (4.7-6.1) M/uL Hgb (14.0-18.0) g/dL Hct (42-52) % MCV (80-100) fL MCH (25-34) pg MCHC (32-36) g/dL RDW Std Deviation (36.4-46.3) fL RDW Coeff of Sarah (11.5-14.5) % Plt Count (130-400) K/uL MPV (7.4-10.4) fL PT (9.0-12.0) Seconds INR (0.9-1.1) Sodium (136-145) mmol/L Potassium (3.5-5.1) mmol/L Chloride (98-107) mmol/L Carbon Dioxide (21-32) mmol/L Anion Gap (3-11) BUN (7-18) mg/dl Creatinine (0.6-1.4) mg/dl Est Cr Clr Drug Dosing ml/min Est GFR ( Amer) Est GFR (Non-Af Amer) BUN/Creatinine Ratio (10-20) Glucose (70-99) mg/dl Calcium (8.5-10.1) mg/dl Total Bilirubin (0.2-1) mg/dl Direct Bilirubin (0-0.2) mg/dl AST (15-37) U/L ALT (12-78) U/L Alkaline Phosphatase (45-117) U/L Total Protein (6.4-8.2) gm/dl Albumin (3.4-5.0) gm/dl Globulin (2.5-4.0) gm/dl Albumin/Globulin Ratio (0.9-2) Lipase (73-393) U/L Urine Color Dark Yellow Urine Appearance Clear (Clear) Urine pH 8.5 H (4.5-7.5) Ur Specific [place] 1.009 (1.000-1.030) Urine Protein Negative (Negative) Urine Glucose (UA) Negative (Negative) Urine Ketones Negative (Negative) Urine Blood Negative (Negative) Urine Nitrite Negative (Negative) Urine Bilirubin 1+ H (Negative) Urine Urobilinogen Negative (Negative) Ur Leukocyte Esterase Negative (Negative)
[2018-08-18] MEDS: THIAMINE HCL 100 MG TAB PO SCH (12:19)
[2018-08-18] MEDS: LORazepam 1 MG TAB PO PRN (19:26)
--- NOTE | 2018-08-18 22:12 | Hospitalist Progress Note ---
Date of Service August 18, 2018 Assessment & Plan (1) Alcohol withdrawal: Recovered from acute alcohol withdrawal symptoms History of chronic alcohol abuse, History of excessive alcohol drinking for long time, has been drinking 1/2-3/4 gallon of whiskey for last few months cough, after losing his grandmother Presented with jaundice, coffee-ground emesis in ER (has not seen any doctor for 20 years) Also had multiple episodes of diarrhea with dark stool Alcohol level less than 40 Patient was placed with alcohol withdrawal per protocol-with gabapentin, IV Ativan -went into acute withdrawal/DT 08/14/2018 requiring ICU transfer Developed acute alcohol withdrawal/delirium tremens, agitated, combative, Required four-point restraint,transferred to ICU Appreciate input from ICU team, was treated with IV phenobarbital (2) Acute alcoholic hepatitis: Presented with significantly elevated AST ALT with coagulopathy-intermittent alcohol liver disease AST ALT total bilirubin gradually improving CT abdomen pelvis confirmed liver cirrhosis, with evidence of portal hypertension portal hypertension GI consult appreciated, abdominal ultrasound shows trace amount of ascites, Started on rifaximin for ongoing confusion Acute hepatitis panel negative Patient is counseled multiple times for complete abstinence from alcohol, With severe alcoholic liver disease, patient's life expectancy will be less than 3-6 months if continues to drink Patient and family aware Patient will need close outpatient follow-up with GI, and EGD for assessment of esophageal varices Stable to be transferred to floor (3) Coagulopathy: Secondary to advanced liver disease/alcoholic liver disease Auto anticoagulated secondary to liver failure, INR 2.8-not on any anticoagulation Presented with GI bleed, coffee-ground emesis, dark stool, stool heme positive in the ER For further GI bleed since admission, INR remains elevated Given FFP/ordered for vitamin K Avoid all form of anticoagulation Overall prognosis remains very poor (4) Hyperbilirubinemia: Secondary to alcoholic liver disease, presented with jaundice, Bilirubin level gradually improving GI allowing Ultrasound of abdomen, concern for possible acute cholecystitis, Surgery eval appreciated, Gallbladder wall thickening, change possibly secondary to liver cirrhosis, does not believe patient is having any acute infection/inflammation of gallbladder no indication for surgery IV antibiotic discontinued (5) Jaundice: As outlined above Patient is counseled repeatedly for complete abstinence from alcohol, (6) Upper GI bleed: No further episode of GI bleed since admission Had episodes of coffee-ground emesis in the ER, multiple episodes of diarrhea, with dark stool, stool heme positive Presents with advanced alcoholic liver disease, with acute alcoholic hepatitis With coagulopathy, thrombocytopenia Also need to rule out variceal bleed-will need possible EGD when patient is medically stable, coagulopathy corrected, GI consulted Has not seen any physicians for the last 20 years, Denies of taking any Motrin or Aleve or any NSAIDs Patient given FFP, platelets transfusion-to reverse coagulopathy Patient H&H has been stable IV Protonix drip discontinued,on p.o. Protonix daily (7) Thrombocytopenia: Secondary to advanced liver disease, possible alcoholic liver cirrhosis on admission Platelet count 30 with active GI bleed Received platelet transfusion Follow CBC closely Avoid antiplatelets/anticoagulation CT abdomen pelvis with IV contrast shows evidence of liver cirrhosis, portal hypertension, splenomegaly (8) Alcohol abuse: History of long-term alcohol abuse months after in family Patient has been drinking heavily gallons of whiskey presented with acute alcoholic hepatitis /upper gi bleed symptoms has resolved , clinically much improved pt is counseled recurrently for complete abstinence from alcohol (9) Tobacco abuse: smokes 1-2 pks cig a day Smoking cessation counseling provided (10) Hyponatremia: due to chronic alcoholic liver disease nephrology consulted Appreciate input Sodium level gradually normalized FULL CODE DVT PROPHYLAXIS : scd and teds avoid anticoagulation due to thromobocytopenia /coagulopahty DISPOSITION : plan is to discharge home in next 1-2 days if remains medically stable Subjective Pt was seen and evaluated, chart reviewed. OOB in chair. Visitors in room. Feels well. Tired but no abdominal pain. No nausea, vomiting. Persistent lower extremity edema. No fever, chills, CP, SOB Physical Exam Constitutional: + ill appearing ENMT: external ear and nose normal, oropharynx normal Mouth: + oral mucosal abnormality (Dry oral mucosa) Neck: trachea midline, no thyromegaly Respiratory: normal respiratory effort, lungs clear to auscultation normal respiratory effort; no respiratory distress and no cough Auscultation: lungs clear to auscultation bilaterally; no crackles and no wheezes Cardiovascular: RRR, no murmur, no edema Neurologic: PERRL, EOMI, accommodation nl, no face palsy, no dysarthria + confused Results & Data Vital Signs (Past 12 Hours) Vital Signs Temp Pulse Resp BP Pulse Ox 08/18/18 15:14 36.7 C 97 H 18 125/79 96 (1) Alcohol withdrawal Complication of substance-induced condition: with delirium Qualified Code(s): F10.231 - Alcohol dependence with withdrawal delirium
[2018-08-19 07:23] LABS: Hematocrit (blood only) 40.2 % (42-52); Hemoglobin 14.1 g/dL (14.0-18.0); Mean Corpuscular Hgb Conc 35.1 g/dL (32-36); Mean Corpuscular Volume 100.2 fL (80-100); RDW Coefficient of Variation 16.6 % (11.5-14.5); RDW Standard Deviation 60.7 fL (36.4-46.3); Red Blood Count 4.01 M/uL (4.7-6.1); White Blood Count 8.38 K/uL (4.8-10.8)
[2018-08-19 07:33] LABS: INR 1.8 (0.9-1.1)
[2018-08-19] MEDS: PANTOprazole 40 MG TAB PO SCH ×2 (07:46→20:58)
[2018-08-19] MEDS: FUROSEMIDE 40 MG TAB PO SCH (07:46)
[2018-08-19] MEDS: THIAMINE HCL 100 MG TAB PO SCH (07:46)
[2018-08-19] MEDS: RIFAXIMIN 550 MG TABLET PO SCH ×2 (07:46→20:58)
[2018-08-19] MEDS: MULTIVITAMIN TAB PO SCH (07:46)
[2018-08-19] MEDS: ZINC SULFATE 220 MG CAPSULE PO SCH (07:47)
[2018-08-19] MEDS: FOLIC ACID 1 MG TAB PO SCH (07:47)
[2018-08-19] MEDS: SPIRONOLACTONE 25 MG TAB PO SCH (07:47)
[2018-08-19 07:51] LABS: Mean Platelet Volume 11.2 fL (7.4-10.4); Platelet Count 61 K/uL (130-400)
[2018-08-19 07:55] LABS: Albumin Globulin Ratio 0.5 (0.9-2); Albumin Level 2.3 gm/dl (3.4-5.0); BUN Creatinine Ratio 15.4 (10-20); Bilirubin Direct 4.7 mg/dl (0-0.2); Bilirubin,Total 6.6 mg/dl (0.2-1); Calcium 8.3 mg/dl (8.5-10.1); Creatinine Clr Calc Pharmacy 176.3 ml/min; Est GFR (African American) 133.5; Est GFR (Non-African American) 115.2; Globulin 4.7 gm/dl (2.5-4.0); Potassium 3.6 mmol/L (3.5-5.1)
--- NOTE | 2018-08-19 14:36 | Hospitalist Progress Note ---
Date of Service August 19, 2018 Assessment & Plan (1) Abdominal pain: complains of abdominal pain /discomfort after eating breakfast no vomiting , feels nauseus had multiple loose bowel movement no evidence of GI bleed abdomen feels distended ordered for Stool C diff assay US of abdomen to assess for ascities Present on Admission?: Yes (2) Edema leg: due to advanced alcoholic cirrhosis of liver CT finding suggestive of Portal HTN pt is started on PO Lasix /Aldactobe given dose of 40 mg IV LAsix yesterday with good diuresis response repeat IV LASIX 40mg mg x1 dose now cont Aldactone monitor vol status daily wt Present on Admission?: Yes (3) Alcoholic cirrhosis of liver with ascites: 42 year old male admitted w/ significant alcoholic hepatitis, cirrhosis. DF = 70 which is suggestive of a a > 50% mortality rate in the next 6 months. Coagulopathy from liver disease presented with Hematemesis and melena no further episode since admission . pt was treated with NAC protocol and prednisolone by GI team pt is counselled repeated times for complete abstinence from Alcohol Pt verbalizes the understanding and agreed to quit in Patient Alcohol rehab is recommended after being Discharged from hospital - High risk for relapse -returning back to home /similar surroundings ( family mentioned they removed all alcohol from home ) information for Drug rehab /AAA/Alcohol support group -Both State and private funded services given to Pt and pt's significant other Sonali -both by myself and case management pt does not have income /no insurance /-Application for Medical Assistance submitted by CM this admission pt does not have any savings/can not in afford in patient Alcohol rehab-which are usually quite expensive /mostly out of pocket given information for State /[facility] sponsored programmes which are usually affordable , SULMA offered to schedule the follow ups /meeting -pt refused wanted to make his own appointment at his convenience pt is updated multiple times his only way to survive and not to liver failure is to participate in these programmes -which will stay him out of Alcohol addiction pt and multiple family members /including Pt's Girl Friend voiced understanding (4) Alcohol withdrawal: Recovered from acute alcohol withdrawal symptoms no active agitation , tremor noted History of chronic alcohol abuse, History of excessive alcohol drinking for long time, has been drinking 1/2-3/4 gallon of whiskey for last few months cough, after losing his grandmother Presented with jaundice, coffee-ground emesis in ER (has not seen any doctor for 20 years) Also had multiple episodes of diarrhea with dark stool Alcohol level less than 40 was admitted to Tele with IV Ativan and Gabapentin ETOH withdrawal protocol -went into acute withdrawal/DT 08/14/2018 requiring ICU transfer Developed acute delirium tremens, agitated, combative, Required four-point restraint, Appreciate input from ICU team, was treated with IV phenobarbital (5) Acute alcoholic hepatitis: Presented with significantly elevated AST ALT with coagulopathy-intermittent alcohol liver disease AST ALT total bilirubin gradually improving CT abdomen pelvis confirmed liver cirrhosis, with evidence of portal hypertension portal hypertension GI consult appreciated, abdominal ultrasound shows trace amount of ascites, Started on rifaximin for ongoing confusion was treated with Prednisne Acute hepatitis panel negative Patient is counseled multiple times for complete abstinence from alcohol, With severe alcoholic liver disease, patient's life expectancy will be less than 3-6 months if continues to drink Patient and family aware Patient will need close outpatient follow-up with GI, and EGD for assessment of esophageal varices (6) Coagulopathy: Secondary to advanced liver disease/alcoholic liver disease Auto anticoagulated secondary to liver failure, INR 2.8-not on any anticoagulation Presented with GI bleed, coffee-ground emesis, dark stool, stool heme positive in the ER Given FFP/ordered for vitamin K For further GI bleed since admission, INR remains elevated Avoid all form of anticoagulation Overall prognosis remains very poor (7) Hyperbilirubinemia: Secondary to alcoholic liver disease, presented with jaundice, Bilirubin level gradually improving GI allowing Ultrasound of abdomen, concern for possible acute cholecystitis, Surgery eval appreciated, Gallbladder wall thickening, change possibly secondary to liver cirrhosis, does not believe patient is having any acute infection/inflammation of gallbladder no indication for surgery IV antibiotic discontinued (8) Jaundice: As outlined above Patient is counseled repeatedly for complete abstinence from alcohol, (9) Upper GI bleed: No further episode of GI bleed since admission Had episodes of coffee-ground emesis in the ER, multiple episodes of diarrhea, with dark stool, stool heme positive Presents with advanced alcoholic liver disease, with acute alcoholic hepatitis With coagulopathy, thrombocytopenia Also need to rule out variceal bleed-will need possible EGD when patient is medically stable, coagulopathy corrected, GI consulted Has not seen any physicians for the last 20 years, Denies of taking any Motrin or Aleve or any NSAIDs Patient given FFP, platelets transfusion Patient H&H has been stable IV Protonix drip discontinued, ordered p.o. Protonix daily (10) Thrombocytopenia: Secondary to advanced liver disease, possible alcoholic liver cirrhosis Platelet count 30 with active GI bleed Received platelet transfusion Follow CBC closely Avoid antiplatelets/anticoagulation CT abdomen pelvis with IV contrast shows evidence of liver cirrhosis, portal hypertension, splenomegaly (11) Alcohol abuse: History of long-term alcohol abuse months after in family Patient has been drinking heavily gallons of whiskey pt is counseled recurrently for complete abstinence from alcohol (12) Tobacco abuse: smokes 1-2 pks cig a day Smoking cessation counseling provided (13) Hyponatremia: due to chronic alchoholic liver disease nephrology consulted Appreciate input Sodium level gradually improved FULL CODE DVT PROPHYLAXIS : scd and teds avoid anticoagulation due to thromobocytopenia /coagulopahty DISPOSITION : plan to discharge home when medically stable Subjective complains of abdominal pain , worse after eating breakfast no nausea /vomiting had multiple times > 5 loose watery dirrhea since this morning Belly feels more distended afebrile lower ext swelling mildly improved with IV lasix Physical Exam Constitutional: + ill appearing jaundiced Eyes: deeply icteric sclera ENMT: external ear and nose normal, oropharynx normal Neck: trachea midline, no thyromegaly Respiratory: normal respiratory effort, lungs clear to auscultation normal respiratory effort; no respiratory distress and no cough Auscultation: lungs clear to auscultation bilaterally; no crackles and no wheezes Cardiovascular: Rate/Rhythm: regular rate and regular rhythm Extremities: + pedal edema (+2) and + edema +2-3 pitting edema Gastrointestinal (Abdomen): Inspection/Auscultation: + abdomen distended and normal bowel sounds Percussion/Palpation: abdomen soft and + ascites Skin: + jaundice Neurologic: PERRL, EOMI, accommodation nl, no face palsy, no dysarthria Results & Data Vital Signs (Past 12 Hours) Vital Signs Temp Pulse Resp BP Pulse Ox 08/19/18 07:18 36.8 C 92 H 22 148/97 H 97 (1) Alcohol withdrawal Complication of substance-induced condition: with delirium Qualified Code(s): F10.231 - Alcohol dependence with withdrawal delirium (2) Abdominal pain Abdominal location: periumbilical Qualified Code(s): R10.33 - Periumbilical pain
[2018-08-19] MEDS: LORazepam 1 MG TAB PO PRN ×2 (15:00→17:13)
[2018-08-19] MEDS ORDERED: FUROSEMIDE 40 MG/4 ML VIAL IV ONE (15:00)
--- NOTE | 2018-08-19 15:46 | Ultrasound Report ---
US abdomen limited HISTORY: ASCITIES. COMPARISON: 08/13/2018 FINDINGS: Survey ultrasound of the abdomen shows no evidence for ascites IMPRESSION: No significant ascites The above report was generated using voice recognition software. It may contain grammatical, syntax or spelling errors. Electronically signed by: Marshall Larios M.D. 08/19/2018 3:45 PM
--- NOTE | 2018-08-19 16:13 | Gastroenterology Progress Note ---
Date of Service August 19, 2018 Assessment & Plan (1) Acute alcoholic hepatitis: 42 year old male admitted w/ significant alcoholic hepatitis, cirrhosis. DF = 70 which is suggestive of a a > 50% mortality rate in the next 6 months. Coagulopathy from liver disease but no current evidence of hemodynamically significant gross GI bleeding. He was started on NAC protocol, prednisolone. This AM, pt is awake, alert and oriented x 3 answering questions appropriately. He is tearful discussing his ETOH addiction and wishes going forward he will be able to remain ETOH free and move forward w/ OP rehabilitation GI recalled for abd pain, diarrhea and distention. Stool for c.diff ordered. ABD US prelim without fluid. - Stool for c.diff - Agree w/ IV lasix for BLE - Xifaxan 550 BID - No signs of GIB - Please see prior notes for additional recommendations - Would recommend PO PPI Thank you for allowing us to participate in the care of this patient. Please call with any acute changes, questions or concerns. Please see addendum below with additional recommendation from my supervising physician. Supervising Physician Co-Signing Physician Notes I have seen and examined the patient and discussed the management with MOHAMUD Jones. Abdominal pain improved- abd mike is without ascites, benign belly exam. Slight change in stools- c diff pending. Agree with further assessment and plan as documented in Bernadette's plan. Subjective Pt was seen and evalauted, chart reviewed. Asked to re-eval for abd distention, abd pain, diarrhea. Notes pain and symptoms were worse inthe AM after breakfast. Feels better throughout the afternoon. Now denies abd pain but persistent diarrhea and distetnion. No fever, chills. No signs/symptoms of GIB. Review of Systems Constitutional: no fever, no body aches, no weakness and no weight gain Respiratory: no cough, no dyspnea, no pain on inspiration and no wheezing Cardiovascular: no chest pain, no radiating jaw, neck or arm pain, no dyspnea on exertion and no palpitations Gastrointestinal: + bloating and + diarrhea/loose stools; no abdominal pain, no belching, no early satiety, no heartburn, no nausea, no vomiting, no coffee ground emesis, no hematemesis, no pain with swallowing, no dysphagia, no cramping, no excessive flatulence, no change in bowel habits, no change in stools, no constipation, no fecal incontinence, no constant urge to pass stools, no blood in stools, no melena and no problem reported Physical Exam Constitutional: WD/WN, vitals as above well developed and well nourished; no acute distress Respiratory: normal respiratory effort, lungs clear to auscultation Cardiovascular: RRR, no murmur, no edema Rate/Rhythm: regular rhythm and + tachycardic Heart Sounds: no click and no murmur Gastrointestinal (Abdomen): Inspection/Auscultation: abdomen normal to inspection and normal bowel sounds Percussion/Palpation: abdomen soft; abdomen nontender, no guarding, abdomen not rigid and no ascites Skin: no rashes, warm and dry + jaundice Results & Data Vital Signs (Past 12 Hours) Vital Signs Temp Pulse Pulse Resp BP Pulse Ox 08/19/18 15:13 36.9 C 105 H 17 143/94 H 95 08/19/18 07:18 36.8 C 92 H 22 148/97 H 97 Laboratory Results 08/19/18 08/19/18 08/19/18 Range/Units 06:48 06:48 06:48 WBC 8.38 (4.8-10.8) K/uL RBC 4.01 L (4.7-6.1) M/uL Hgb 14.1 (14.0-18.0) g/dL Hct 40.2 L (42-52) % MCV 100.2 H (80-100) fL MCH 35.2 H (25-34) pg MCHC 35.1 (32-36) g/dL RDW Std Deviation 60.7 H (36.4-46.3) fL RDW Coeff of Sarah 16.6 H (11.5-14.5) % Plt Count 61 L (130-400) K/uL MPV 11.2 H (7.4-10.4) fL PT 18.0 H (9.0-12.0) Seconds INR 1.8 H (0.9-1.1) Sodium 137 (136-145) mmol/L Potassium 3.6 (3.5-5.1) mmol/L Chloride 104 (98-107) mmol/L Carbon Dioxide 27 (21-32) mmol/L Anion Gap 6.0 (3-11) BUN 11 (7-18) mg/dl Creatinine 0.73 (0.6-1.4) mg/dl Est Cr Clr Drug Dosing 176.3 ml/min Est GFR ( Amer) 133.5 Est GFR (Non-Af Amer) 115.2 BUN/Creatinine Ratio 15.4 (10-20) Glucose 85 (70-99) mg/dl Calcium 8.3 L (8.5-10.1) mg/dl Total Bilirubin 6.6 H (0.2-1) mg/dl Direct Bilirubin 4.7 H (0-0.2) mg/dl AST 92 H (15-37) U/L ALT 106 H (12-78) U/L Alkaline Phosphatase 138 H (45-117) U/L Total Protein 7.0 (6.4-8.2) gm/dl Albumin 2.3 L (3.4-5.0) gm/dl Globulin 4.7 H (2.5-4.0) gm/dl Albumin/Globulin Ratio 0.5 L (0.9-2) Lipase 811 H (73-393) U/L
[2018-08-19] MEDS ORDERED: LORazepam 1 MG TAB PO STA ×2 (17:07→22:03)
[2018-08-20 05:39] LABS: Hematocrit (blood only) 34.3 % (42-52); Hemoglobin 11.9 g/dL (14.0-18.0); Mean Corpuscular Hgb Conc 34.7 g/dL (32-36); Mean Corpuscular Volume 98.8 fL (80-100); RDW Coefficient of Variation 16.2 % (11.5-14.5); RDW Standard Deviation 58.9 fL (36.4-46.3); Red Blood Count 3.47 M/uL (4.7-6.1); White Blood Count 6.28 K/uL (4.8-10.8)
[2018-08-20 05:53] LABS: Prothrombin Time 19.1 Seconds (9.0-12.0)
[2018-08-20 06:00] LABS: Mean Platelet Volume 11.2 fL (7.4-10.4); Platelet Count 48 K/uL (130-400)
[2018-08-20 06:33] LABS: Albumin Level 1.9 gm/dl (3.4-5.0); BUN Creatinine Ratio 21.1 (10-20); Bilirubin Direct 3.9 mg/dl (0-0.2); Calcium 7.9 mg/dl (8.5-10.1); Creatinine Clr Calc Pharmacy 210.9 ml/min; Est GFR (African American) 143.8; Potassium 3.3 mmol/L (3.5-5.1)
[2018-08-20 06:41] LABS: Albumin Globulin Ratio 0.5 (0.9-2); Bilirubin,Total 5.8 mg/dl (0.2-1); Globulin 3.9 gm/dl (2.5-4.0); Total Protein 5.8 gm/dl (6.4-8.2)
[2018-08-20] MEDS: RIFAXIMIN 550 MG TABLET PO SCH (08:04)
[2018-08-20] MEDS: FOLIC ACID 1 MG TAB PO SCH (08:05)
[2018-08-20] MEDS: SPIRONOLACTONE 25 MG TAB PO SCH (08:05)
[2018-08-20] MEDS: ZINC SULFATE 220 MG CAPSULE PO SCH (08:05)
[2018-08-20] MEDS: THIAMINE HCL 100 MG TAB PO SCH (08:05)
[2018-08-20] MEDS: PANTOprazole 40 MG TAB PO SCH (08:06)
[2018-08-20] MEDS: MULTIVITAMIN TAB PO SCH (08:06)
[2018-08-20] MEDS ORDERED: FUROSEMIDE 40 MG TAB PO SCH (09:00)
[2018-08-20] MEDS ORDERED: POTASSIUM CHLORIDE 10 MEQ TABCR PO STA (09:55)
--- NOTE | 2018-08-20 09:59 | Gastroenterology Progress Note ---
Date of Service August 20, 2018 Assessment & Plan (1) Acute alcoholic hepatitis: 42 year old male admitted w/ significant alcoholic hepatitis, cirrhosis. DF = 70 which is suggestive of a a > 50% mortality rate in the next 6 months. Coagulopathy from liver disease but no current evidence of hemodynamically significant gross GI bleeding. He was started on NAC protocol, prednisolone. This AM, pt is awake, alert and oriented x 3 answering questions appropriately. He is tearful discussing his ETOH addiction and wishes going forward he will be able to remain ETOH free and move forward w/ OP rehabilitation GI recalled for abd pain, diarrhea and distention. Stool for c.diff ordered. ABD US prelim without fluid. - Agree w/ IV lasix for BLE - Xifaxan 550 BID - No signs of GIB - Please see prior notes for additional recommendations - Would recommend PO PPI - Continue prednisolone - Will call the primary team Thank you for allowing us to participate in the care of this patient. Please call with any acute changes, questions or concerns. Please see addendum below with additional recommendation from my supervising physician. Supervising Physician Co-Signing Physician Notes Patient not in room when I attempted to go see the patient. I have discussed the management with MOHAMUD Jones. I agree with her assessment and plan. Subjective Pt was seen and evaluated, chart reviewed. No abd pain. No nausea, vomiting. No black/bloody stools. No fever, chills, CP, SOB. Lower extremity edema slowly resolving. Wants to go home. Review of Systems Constitutional: no fever, no body aches, no weakness and no weight gain Respiratory: no cough, no dyspnea, no pain on inspiration and no wheezing Cardiovascular: no chest pain, no radiating jaw, neck or arm pain, no dyspnea on exertion and no palpitations Gastrointestinal: no abdominal pain, no early satiety, no vomiting, no coffee ground emesis, no hematemesis, no blood in stools and no melena Physical Exam Constitutional: WD/WN, vitals as above Respiratory: normal respiratory effort, lungs clear to auscultation Cardiovascular: Rate/Rhythm: regular rate and regular rhythm Extremities: + pedal edema and + edema Gastrointestinal (Abdomen): Inspection/Auscultation: normal bowel sounds Percussion/Palpation: abdomen soft; abdomen nontender, no guarding, abdomen not rigid and no abdominal mass Skin: + jaundice Results & Data Vital Signs (Past 12 Hours) Vital Signs Temp Pulse Resp BP Pulse Ox 08/20/18 08:16 37.0 C 89 18 137/87 98 08/19/18 22:30 36.9 C 77 18 117/71 97
[2018-08-20] MEDS ORDERED: predniSONE 20 MG TAB PO SCH (10:30)
--- NOTE | 2018-08-20 15:23 | Hospitalist Progress Note ---
Date of Service August 20, 2018 Assessment & Plan (1) Alcohol withdrawal: No withdrawal symptoms today Clinically improved H/O chronic alcohol abuse Completed Gabapentin protocol Was also on IV phenobarbital while in ICU On Ativan PRN Continue thiamine, folic acid Counseled to quit drinking (2) Acute alcoholic hepatitis: Patient presented with significantly elevated AST ALT with coagulopathy- intermittent alcohol liver disease AST ALT total bilirubin gradually improving CT abd: liver cirrhosis, with evidence of portal hypertension portal hypertension No significant ascites on ABD USD Appreciate GI consult Input Continue Prednisone Taper-40MG for 20 more days, then decrease by 10mg weekly Continue rifaximin Acute hepatitis panel negative Needs FU with GI as outpatient and for EGD Continue diuretics for edema (3) Coagulopathy: Secondary to advanced liver disease/alcoholic liver disease INR: 2.0 No bleeding issues EGD planned as outpatient for coffee-ground emesis, dark stool, stool heme positive Given FFP/ordered for vitamin K Avoid all form of anticoagulation (4) Hyperbilirubinemia: Secondary to alcoholic liver disease, presented with jaundice LFTs improving Ultrasound of abdomen, concern for possible acute cholecystitis, Surgery eval appreciated Gallbladder wall thickening, change possibly secondary to liver cirrhosis, does not believe patient is having any acute infection/inflammation of gallbladder no indication for surgery IV antibiotics discontinued (5) Jaundice: As above (6) Upper GI bleed: Presented with coffee-ground emesis , dark stool, Positive FOBT No further episode of GI bleed since admission In setting of coagulopathy, thrombocytopenia EGD as outpatient to R/O variceal bleed Appreciate GI Input Denies of taking any Motrin or Aleve or any NSAIDs Continue PO protonix H&H stable (7) Thrombocytopenia: Secondary to advanced liver disease, possible alcoholic liver cirrhosis Received platelet transfusion Avoid antiplatelets/anticoagulation CT abdomen pelvis with IV contrast shows evidence of liver cirrhosis, portal hypertension, splenomegaly Monitor CBC No active bleeding at time of discharge (8) Alcohol abuse: (9) Tobacco abuse: smokes 1-2 pks cig a day 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 (10) Hyponatremia: due to chronic alcoholic liver disease nephrology consulted Appreciate input Sodium level gradually normalized Code Status FULL CODE DVT PX: scd and teds DISPOSITION : Plan to discharge home today Subjective Patient is seen and examined at bedside Doing better today Leg swelling is improving Offers no complaints Denies chest pain, SOB, dizziness No other complaints Review of Systems Review of Systems: All systems reviewed & are unremarkable except as noted in HPI & below Physical Exam Physical Exam: Physical Exam: Vitals signs as noted above General Appearance:Moderately built and nourished, no apparent distress Head: normocephalic, Atraumatic Eyes: normal inspection, EOMI, +Icteric Neck: supple, Trachea midline Respiratory/Chest: Normal breath sounds, CTA Cardiovascular: S1, S2, No murmur Abdomen/GI:Soft, Non tender, Bowel sounds present Extremities/Musculoskelatal:normal inspection, B/L LE edema Neurologic/Psych:AAOX3, grossly no focal neurological deficits Skin: normal color, warm Results & Data Vital Signs (Past 12 Hours) Vital Signs Temp Pulse Resp BP Pulse Ox 08/20/18 12:51 37.0 C 89 18 137/87 98 08/20/18 08:16 37.0 C 89 18 137/87 98 Laboratory Results Short CBC 08/20/18 Range/Units 05:19 WBC 6.28 (4.8-10.8) K/uL Hgb 11.9 L (14.0-18.0) g/dL Hct 34.3 L (42-52) % Plt Count 48 L (130-400) K/uL BMP 08/20/18 05:19 Sodium 138 Potassium 3.3 L Chloride 104 Carbon Dioxide 27 BUN 13 Creatinine 0.61 Glucose 89 Calcium 7.9 L Liver Function 08/20/18 Range/Units 05:19 Total Bilirubin 5.8 H (0.2-1) mg/dl Direct Bilirubin 3.9 H (0-0.2) mg/dl AST 74 H (15-37) U/L ALT 86 H (12-78) U/L Alkaline Phosphatase 109 (45-117) U/L Albumin 1.9 L (3.4-5.0) gm/dl Diagnostic Findings ABD USD: No significant ascites (1) Alcohol withdrawal Complication of substance-induced condition: with delirium Qualified Code(s): F10.231 - Alcohol dependence with withdrawal delirium
--- NOTE | 2018-08-20 15:50 | Discharge Summary ---
Date of Service August 20, 2018 Admission HPI Per Admitting Provider History obtained from patient, family, and records. Medical history significant for ongoing tobacco, alcohol abuse. Patient's daily alcohol consumption worsened over the last 2 months with demise of his grand mother and dog. The last few days, patient's noticed patient to be jaundiced and increasingly tremulous. Patient without an appetite. Dark loose stools as per patient's . Minimal abdominal cramping with bowel movement as per patient. Nonbloody emesis. No history of alcohol withdrawal seizures although patient has never stopped drinking in the past as per family. Medical History as above Surgical History : None Family History : Hypertension, diabetes, alcoholism Personal/Social history : One pack daily, daily alcohol intake, Carlos Admission Exam Per Admitting Provider GENERAL: uncomfortable, anxious, tremulous, obese, looks older than stated age, no respiratory distress SKIN: Jaundice, warm, spider angiomata HEENT: Partial alopecia, pale palpebral conjunctivae, icteric sclerae, no ptosis, dry buccal mucosa NECK : Supple, short, no tenderness CHEST : Occasional wheeze, no tenderness HEART : Tachycardic, no obvious murmurs ABDOMEN: Some distention, nontender Rectal: Intact sphincter, dark stool, heme positive EXTREMITIES : minimal LE swelling, no tenderness, no other conspicuous deformities noted NEUROLOGIC : Episode of confusion, no facial asymmetry, tremulous Principal Diagnosis Discharge Information Discharge Diagnosis ALCHOHOL ABUSE /SEVERE ALCHOHOL WITHDRAWL/ ALCOHOLIC LIVER DISEASE Alcoholic Hepatitis Coagulopathy Thrombocytopenia Discharge Goals Decrease discomfort,Therapeutic intervention, Improve disease control,Improve function Discharge Activity Limitations Resume your previous activity Discharge Data Allergies Allergy/AdvReac Type Severity Reaction Status Date / Time amoxicillin Allergy Severe Hives Verified 08/11/18 23:25 ibuprofen Allergy Intermediate Hives Verified 08/11/18 23:25 Consultations 08/12/18 01:04 ED Decision to Admit Stat 08/12/18 03:43 Consult Case Management - Discharge Planning Routine Consult Gastroenterology Routine Consult Nephrology Routine 08/12/18 12:08 Consult General Surgery Routine 08/13/18 15:05 Consult Case Management - Discharge Planning Routine 08/14/18 09:15 Consult Float Operator Routine Procedures Performed CT ABD: 1. Distended and thick-walled gallbladder with trace pericholecystic fluid. This is nonspecific could be due to the patient's underlying cirrhosis. However, acute cholecystitis could also have a similar appearance. Clinical correlation recommended. 2. Cirrhotic liver. There are 2 hypodense lesions within the liver which are incompletely care chest on this study. 3. Small amount of ascites and trace bilateral pleural effusions. 4. Colonic wall thickening is likely due to the patient's cirrhosis. 5. Multiple abdominal varicosities are noted in most pronounced within the right retroperitoneal space. Liver USD: 1. Cirrhosis with recanalized paraumbilical vein indicative of portal hypertension. Trace ascites. Hepatic lesions on CT from earlier today not visualized on this exam due to suboptimal penetration. 2. Moderate gallbladder distention with mild gallbladder wall thickening and trace pericholecystic fluid. The findings are nonspecific in the setting of cirrhosis and a nuclear medicine hepatobiliary scan could be obtained if suspicion for acute cholecystitis. Small amount of sludge within the gallbladder. No gallstones. CXR: No active disease in the chest. Ordered Studies 08/12/18 09:45 CT abd pelvis IV con only Stat 08/12/18 10:01 US liver Stat 08/13/18 13:06 US abdomen limited Urgent 08/19/18 14:49 US abdomen limited Routine Hospital Course (1) Alcohol withdrawal: No withdrawal symptoms today Clinically improved H/O chronic alcohol abuse Completed Gabapentin protocol Was also on IV phenobarbital while in ICU On Ativan PRN Continue thiamine, folic acid Counseled to quit drinking (2) Acute alcoholic hepatitis: Patient presented with significantly elevated AST ALT with coagulopathy- intermittent alcohol liver disease AST ALT total bilirubin gradually improving CT abd: liver cirrhosis, with evidence of portal hypertension portal hypertension No significant ascites on ABD USD Appreciate GI consult Input Continue Prednisone Taper-40MG for 20 more days, then decrease by 10mg weekly Continue rifaximin Acute hepatitis panel negative Needs FU with GI as outpatient and for EGD Continue diuretics for edema (3) Coagulopathy: Secondary to advanced liver disease/alcoholic liver disease INR: 2.0 No bleeding issues EGD planned as outpatient for coffee-ground emesis, dark stool, stool heme positive Given FFP/ordered for vitamin K Avoid all form of anticoagulation (4) Hyperbilirubinemia: Secondary to alcoholic liver disease, presented with jaundice LFTs improving Ultrasound of abdomen, concern for possible acute cholecystitis, Surgery eval appreciated Gallbladder wall thickening, change possibly secondary to liver cirrhosis, does not believe patient is having any acute infection/inflammation of gallbladder no indication for surgery IV antibiotics discontinued (5) Jaundice: As above (6) Upper GI bleed: Presented with coffee-ground emesis , dark stool, Positive FOBT No further episode of GI bleed since admission In setting of coagulopathy, thrombocytopenia EGD as outpatient to R/O variceal bleed Appreciate GI Input Denies of taking any Motrin or Aleve or any NSAIDs Continue PO protonix H&H stable (7) Thrombocytopenia: Secondary to advanced liver disease, possible alcoholic liver cirrhosis Received platelet transfusion Avoid antiplatelets/anticoagulation CT abdomen pelvis with IV contrast shows evidence of liver cirrhosis, portal hypertension, splenomegaly Monitor CBC No active bleeding at time of discharge (8) Alcohol abuse: History of long-term alcohol abuse months after in family Patient has been drinking heavily gallons of whiskey presented with acute alcoholic hepatitis /upper gi bleed symptoms has resolved , clinically much improved pt is counseled recurrently for complete abstinence from alcohol (9) Tobacco abuse: smokes 1-2 pks cig a day 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 (10) Hyponatremia: due to chronic alcoholic liver disease nephrology consulted Appreciate input Sodium level gradually normalized Code Status FULL CODE DVT PX: scd and teds DISPOSITION : Plan to discharge home today Total Time Total Time Spent Total Time Spent (In Minutes): 45 minutes Discharge Plan Discharge Items Patient Disposition: Home - Self-Care Reason For Visit: ETOH WITHDRAWAL, UGIB Discharge Diagnosis: ALCHOHOL ABUSE /SEVERE ALCHOHOL WITHDRAWL/ALCOHOLIC LIVER DISEASE Alcoholic Hepatitis Coagulopathy Thrombocytopenia Condition: Good Discharge Goals: Decrease discomfort, Improve disease control, Improve function and Therapeutic intervention Activity: Resume your previous activity Exercise/Sports: Gradually increase as tolerated Non-emergency contact: Primary Care Provider and Labor Relations Director Call non-emergency contact if: you have any medication questions, your symptoms worsen, your pain is not controlled, your pain is worsening, your pain is unusual for you, your pain is concerning for you and you have a fever Follow-up/Referrals: PCP,NO [Primary Care Provider] - Diet: Low Fat and Low Sodium (2gm) Addtl Provider Instructions: Follow up with your Primary Care Physician at [facility] on August 25, 2018 at 3:00pm Follow up with your Labor Relations Director Dr.Nina Smiley on November 16, 2018 at 3:00pm Get Esophagogastroduodenoscopy (EGD) as outpatient as per your doctor's recommendations Complete the Prednisone taper Course as per your grader patrol recommendations: Start taking Prednisone 40mg daily for 20 days, then 30mg for 7 days, then 20mg for 7 days, then 10mg for 7 days and STOP Seek immediate medical attention if your symptoms reoccur or worsen Quit drinking alcohol as advised Prescriptions: New multivitamin [Daily-Emiliano] Tablet 1 tab PO QAM 30 Days Qty: 30 RF: 3 furosemide 40 mg Tablet 40 mg PO QAM 30 Days Qty: 30 RF: 3 thiamine HCl (vitamin B1) [Vitamin B-1] 100 mg Tablet 100 mg PO QAM 30 Days Qty: 30 RF: 3 spironolactone 25 mg Tablet 25 mg PO QAM 30 Days Qty: 30 RF: 3 pantoprazole 40 mg Tablet,Delayed Release (Dr/Ec) 40 mg PO BID 30 Days Qty: 60 RF: 3 folic acid 1 mg Tablet 1 mg PO QAM 30 Days Qty: 30 RF: 3 zinc sulfate 220 (50) mg Capsule 220 mg PO QAM 30 Days Qty: 30 RF: 3 Xifaxan 550 mg Tablet 550 mg PO BID 30 Days Qty: 60 RF: 3 buspirone 5 mg Tablet 5 mg PO TID 30 Days Qty: 90 RF: 0 prednisone 20 mg tablet 20 mg PO UD Qty: 54 RF: 0 prednisone 10 mg tablet 10 mg PO UD Qty: 14 RF: 0 Stand-Alone Forms: [facility] [place] [employer] [facility]/Other Patient Handouts: Abuse Alcohol Life After Combat, Tips Using Less Salt, Choices Low Salt, Alcoholism, Alcoholism Info Family Friends, Alcoholism Get Help, Addiction Alcohol, Withdrawal Alcohol What Expect, Addiction Get Help, Addiction Recovery, Addiction Recovery Counseling, Addiction Recovery [place] Relapse, Diet Low Salt Dc Discharge Orders: Discharge Order (Routine); Ordered 08/20/18 Ordered By: Venkata Do Admission Data Admit Date/Time: 08/12/18 02:49 Attending Provider: Venkata Do Admit Provider: Golden Dean Primary Care Provider: PCP,NO Other Providers: Golden Dean ; Bennie Rojas ; John Suarez ; Baylee Hoffman ; Markos Velazquez ; Brandon Burns ; Suzi Segura ; Nany Anthony ; Yovany Portillo ; Tenzin Owen ; Bernadette Collins ; Laura Grant ; Edilia Segovia ; Nelly Smiley ; Nasim Escamilla ; Rolanda Ferguson ; Ezio Orosco ; Trina Garcia I ; Tran Womack ; Danielle Esteban ; Benita Soto ; Anatoliy Sanchez ; Manuel Nicholas ; Bekah Pereira Service: Medical Other Interventions: Discharge Summary Assessment (RN) Last Done: 08/20/18 15:55 DC Date/Time DO NOT enter until pt leaves facility: 08/20/18 16:33
[2018-08-21] MEDS ORDERED: THIAMINE HCL 100 MG in SYRINGE 9 ML IV SCH (21:00)
[2018-08-22] MEDS ORDERED: THIAMINE HCL 100 MG in SYRINGE 9 ML IV SCH (21:00)
== END 2018-08-20 16:33 | disposition home or self-care (01) | DRG 433 ==
LOC: ED 21:22 → SUATTDRO 08-12 02:49 → 2E 08-12 02:49 → 1E 08-14 09:24 → 2N 08-16 15:14 → 4E 08-18 06:39